=== PATIENT | male | born 1945 | race African-American/Black ===

== ENCOUNTER 2016-11-27 08:30 | Inpatient (IN) | payer MEDICARE, MEDICAID ==
[~2016-11-27] VITALS: Ht 180.3 cm; Wt 88.5 kg
[2016-11-27] VITALS (20 sets, daily range): BP systolic 89–177; BP diastolic 49–89
[~2016-11-27 08:30] MED LIST: AMIODARONE HCL400 M1 ORAL; BISACODYL5 MG RECTAL; COLACE100 MG ORAL; COUMADIN5 MG ORAL; Clindamycin 900mg 50 ML IVPB ONE; DILANTIN100 MG ORAL; FERROUS SULFAT325 MG ORAL; FLEET ENEMA133 ML RECTAL; FLOMAX0.4 MG ORAL; FOLIC ACID1 MG ORAL; LIPITOR40 MG ORAL; LISINOPRIL20 MG ORAL; METOPROLOL TAR100 M1 ORAL; MILK OF MA2400 MG/10 ORAL; MIRTAZAPINE15 MG ORAL; MULTI VITAMIN1 EACH ORAL; OS-CAL1250 MG GT; POTASSIUM CHLO20 ME1 ORAL; SENNA8.6 M3 PO; THIAMINE HCL100 MG ORAL; TYLENOL325 MG ORAL; TYLENOL650 MG/20. ORAL; VITAMIN B12-FO1 EAC1 PO; Vancomycin 1.5 GM in D5W 325 ML IVPB STA
--- NOTE | 2016-11-27 08:32 | Emergency Room Report ---
History of Present Illness General Chief Complaint: Abnormal Labs Source: EMS Present Illness HPI 70YOM BIBEMS from SNF for "abdominal distention" and "rule out SBO" and "High WBCs". No other info from EMS Patient aphasic No other family members bedside Allergies: Coded Allergies: PENICILLINS (Verified Allergy, Unknown, 03/08/15) Uncoded Allergies: PCN (Allergy, Unknown, 03/08/15) Patient History Limited by: medical condition Past Medical History: see triage record, old chart reviewed, AFib, other - Multiple med problems too numerous to list here Past Surgical History: unable to obtain Pertinent Family History: unable to obtain Social History: Denies: alcohol use, drug use, smoking Immunizations: UTD Reviewed Nursing Documentation: PMH: Agreed, PSxH: Agreed Nursing Documentation-PMH Past Medical History: No History, Except For Hx Cardiac Problems: Yes - A FIB Hx Hypertension: Yes Hx Pacemaker: No - ANEMIA History Of Psychiatric Problem: Yes - DEPRESSION Hx Cerebrovascular Accident: Yes Hx Seizures: Yes Review of Systems All Other Systems: limited - Unable to provide, aphasic Physical Exam Vital Signs Date Time Temp Pulse Resp B/P Pulse Ox O2 Delivery O2 Flow Rate FiO2 11/27/16 08:20 102.9 120 92 Room Air Sp02 EP Interpretation: reviewed, abnormal General Appearance: normal inspection, well appearing, no apparent distress, alert, non-toxic Head: normocephalic, atraumatic Eyes: bilateral eye EOMI, bilateral eye PERRL ENT: normal ENT inspection, hearing grossly normal, normal pharynx, no angioedema Neck: normal inspection, full range of motion, supple, no bony tend Respiratory: normal inspection, lungs clear, normal breath sounds, no respiratory distress, no retraction, no wheezing Cardiovascular #1: regular rate, rhythm, no edema Gastrointestinal: normal inspection, normal bowel sounds, no guarding, no hernia, other - Distended, patient with voluntaru guarding Genitourinary: no CVA tenderness Musculoskeletal: normal inspection, back normal, normal range of motion, Alfred' s Sign negative Neurologic: normal inspection, alert, responsive, block breaker operator III-XII nml as tested, motor strength/tone normal, speech normal Psychiatric: normal inspection, judgement/insight normal, mood/affect normal Skin: normal inspection, normal color, no rash Procedures Critical Care Time Critical Care Time CC time 40 minutes 70YOM sent for "high white count" and "abd distention" VS febrile, tachcardic Abd distended DDx includes sepsis, SBO CC time includes review of multiple pages from SNF, labs, ordering of labs, ABX , placing NG tube, CTAP Dw possible surgery consult, admitting hospitalist Medical Decision Making Medicare Attestation I Margie Farah MD hereby attest that the medical record entry for date of service, 05/02/16 accurately reflects signatures/notations that I made in my capacity as MD when I treated/diagnosed the above listed Medicare beneficiary. I attest that this information is true, accurate and complete to the best of my knowledge. I understand that any falsification, omission, or concealment of material fact may subject me to administrative, civil, or criminal liability. This patient warrants hospital admission for extreme of age and has a condition that cannot be treated as outpatient. Diagnostic Impression: Primary Impression: Sepsis Qualified Codes: A41.9 - Sepsis, unspecified organism Additional Impressions: Abdominal distention UTI (urinary tract infection) Qualified Codes: N30.01 - Acute cystitis with hematuria GRETEL (acute kidney injury) ER Course Sepsis - VS with tachycardia, fever 103 - Abd likely source - NG tube placed with large amount of gastric contents removed - Labs: Leuks 18K with shift. UA grossly infected. GRETEL - CXR: no pna. - CTAP: NG Tube verifid. Enteritis vs ileus. ?SBO - Dr Avelar consulted for general surgery, saw patient Endorsed to Dr Vance for tele admit at 1132am EKG Diagnostic Results Rate: tachycardiac Rhythm: NSR ST Segments: no acute changes ASA given to the pt in ED: No Rhythm Strip Diag. Results EP Interpretation: yes Rate: 118 Rhythm: NSR, no PVC's, no ectopy Last Vital Signs Date Time Temp Pulse Resp B/P Pulse Ox O2 Delivery O2 Flow Rate FiO2 11/27/16 08:20 102.9 120 92 Room Air Status: improved Disposition: ADMITTED INPATIENT Condition: Critical MARGIE FARAH M.D. Nov 27, 2016 08:32
[2016-11-27] MEDS ORDERED: ARTIFICIAL TEAR15 ML BOTH EYES (08:55)
[2016-11-27] MEDS ORDERED: ALBUTEROL2.5 MG/3 M INH (08:55)
[2016-11-27] MEDS ORDERED: DILANTIN100 MG ORAL (08:55)
[2016-11-27] MEDS ORDERED: NITROGLYCERIN0.4 MG SL (08:55)
[2016-11-27] MEDS ORDERED: CATAPRES0.1 MG ORAL (08:55)
[2016-11-27] MEDS ORDERED: Lidocaine HCl 2% Jelly 5ml Tube TOPIC ONE ×3 (08:55→10:15)
[2016-11-27] MEDS ORDERED: GUAIFENESIN-CO118 M1 ORAL (08:55)
[2016-11-27] MEDS ORDERED: OYSTER SHELL C500 MG PO (08:55)
[2016-11-27] MEDS ORDERED: PROSOURCE275 GM PO (08:55)
[2016-11-27] MEDS ORDERED: LOPERAMIDE1 MG/5 ML ORAL (08:55)
[2016-11-27] MEDS ORDERED: Acetaminophen 650 MG SUPP RECTAL ONE ×2 (09:10→09:30)
[2016-11-27 09:20] LABS: BASOPHILS % (AUTO) 0.3 % (0.0-2.0); MEAN CORPUSCULAR HGB CONC 32.2 G/DL (32.0-36.0); MEAN CORPUSCULAR VOLUME 99 FL (80-99); MEAN PLATELET VOLUME 7.2 FL (6.5-10.1); MONOCYTES % (AUTO) 9.3 % (1.0-10.0); NEUTROPHILS % (AUTO) 81.4 % (45.0-75.0); PLATELET COUNT 236 K/UL (150-450); RED BLOOD COUNT 4.03 M/UL (4.70-6.10); RED CELL DISTRIBUTION WIDTH 12.1 % (11.6-14.8); WHITE BLOOD COUNT 17.9 K/UL (4.8-10.8)
[2016-11-27 09:26] LABS: INR 1.1 (0.9-1.1); PROTHROMBIN TIME 11.4 SEC (9.30-11.50)
[2016-11-27 09:54] LABS: ALANINE AMINOTRANSFERASE 16 U/L (3-41); ALBUMIN/GLOBULIN RATIO 1.2 (1.0-2.7); ANION GAP 18 (5-15); ASPARTATE AMINO TRANSFERASE 18 U/L (5-40); CALCIUM 8.7 mg/dL (8.6-10.2); CARBON DIOXIDE 23 mEQ/L (20-30); CHLORIDE 98 mEQ/L (98-107); CREATININE 2.6 mg/dL (0.7-1.2); HEMOLYSIS 5; LIPASE 10 U/L (< 60); POTASSIUM 4.3 mEQ/L (3.4-4.9); SODIUM 139 mEQ/L (135-145); TOTAL PROTEIN 7.2 g/dL (6.6-8.7); TROPONIN I < 0.30 ng/mL (<=0.30)
[2016-11-27] MEDS ORDERED: Lidocaine 4% Cream 15g TOPIC ONE (10:00)
--- NOTE | 2016-11-27 11:06 | Diagnostic Imaging Report ---
Indication: Abdominal pain Technique: Continuous helical transaxial imaging of the abdomen and pelvis was obtained from the lung bases to the pubic symphysis. No intravenous contrast was administered. Coronal 2-D reformats were also obtained. Total Dose length Product (DLP): [address] Dose Index Volume (CTDIvol): 19 mGy Comparison: none Findings: Coronary and aortic calcifications are present. Trace basilar effusions are noted. There is an NG tube present. This appears to be in good position. There is a prominent retrocrural node measuring 3 x 2 x 4.3 cm. This is not evaluated well on the current study obtained without IV contrast. Gallstones are present. There is a 4 mm nonobstructive stone in the right kidney. There is no hydronephrosis. Adrenal gland prominence is noted bilaterally. Normal appendix demonstrated. Mildly distended bowel demonstrated abdomen without obvious transition. Please correlate clinically. Moderate stool retention in the colon also noted. Urinary bladder is unremarkable. 1 cm hypodensity noted in the inferior right lobe of the liver. Impression: Distended small bowel. Suspect enteritis or ileus. Bowel obstruction not entirely excluded. Please correlate clinically. Apparent pleural adenopathy. Inflammatory versus neoplastic. Nonobstructive stone right kidney Gallstone Trace basilar pleural effusions NG tube in good position Right lobe liver hypodensity nonspecific. Moderate stool Normal appendix Atherosclerotic vascular disease The CT scanner at [facility] is accredited by the [employer] and the scans are performed using dose optimization techniques as appropriate to a performed exam including Automatic Exposure control.
[2016-11-27 11:29] LABS: APPEARANCE,URINE CLEAR; KETONES,URINE 2+ (NEGATIVE); LEUKOCYTE ESTERASE ,URINE 2+ (NEGATIVE); NITRITE,URINE POSITIVE (NEGATIVE); PH,URINE 5 (4.5-8.0); PROTEIN,URINE 2+ (NEGATIVE); UROBILINOGEN,URINE 8 MG/DL (0.0-1.0)
[2016-11-27 11:30] LABS: BACTERIA,URINE FEW /HPF; SQUAMOUS EPITHELIAL CELL,UR FEW /LPF (NONE/OCC)
[2016-11-27 11:31] LABS: ICTOTEST POS
[2016-11-27 11:45] LABS: REFLEX LACTIC ACID YES OR NO YES
--- NOTE | 2016-11-27 12:04 | Pre-Procedure Note/Attestation ---
Pre-Procedure Note/Attestation Complete Prior to Procedure Planned Procedure: not applicable Procedure Narrative: exploratory Laparotomy Indications for Procedure Pre-Operative Diagnosis: Acute Abdomen Attestation I attest that I discussed the nature of the procedure; its benefits; risks and complications; and alternatives (and the risks and benefits of such alternatives ), prior to the procedure, with the patient (or the patient's legal dental detail representative). I attest that, if there was a reasonable possibility of needing a blood transfusion, the patient (or the patient's legal dental detail representative) was given the [facility] standardized written summary, pursuant to the Zachary Perez Blood Safety Act ([place] Health and Safety Code # 1645, as amended). I attest that I re-evaluated the patient just prior to the surgery and that there has been no change in the patient's H&P, except as documented below: WILMA BANUELOS Nov 27, 2016 12:04
[2016-11-27] MEDS ORDERED: Bacitracin 50000 Units Vial ONE (12:49)
[2016-11-27] MEDS ORDERED: LR 1000ml ONE (13:00)
[2016-11-27] MEDS ORDERED: Propofol 10mg/ml 20ml IV ONE (13:00)
[2016-11-27] MEDS ORDERED: Phenylephrine 10mg/ml Vial ONE (13:00)
[2016-11-27] MEDS ORDERED: Midazolam 2mg/2ml Inj ONE (13:00)
[2016-11-27] MEDS ORDERED: Morphine Sulfate 10mg/ml Inj ONE (13:00)
[2016-11-27] MEDS ORDERED: Zemuron 50mg/5ml Inj IV ONE (13:00)
[2016-11-27] MEDS ORDERED: fentaNYL 100 mcg/2 mL IV ONE (13:00)
--- NOTE | 2016-11-27 13:32 | Consultation ---
DATE OF CONSULTATION: 11/27/2016 PREOPERATIVE CONSULTATION REASON FOR CONSULTATION: Abdominal distention and pain. REQUESTING PHYSICIAN: ER physician. HISTORY OF PRESENT ILLNESS: This is a 70-year-old male, who was brought to the emergency room [facility] and pain. There is absolutely no history available and the family is not available. From the records, the patient has only one sister, which was called and there was no response. The patient is nonresponsive, does not answer. He only response to pain and appeared that he is septic shock. It is not clear how long the patient has had this problem, but records from the [facility] shows that 11/24/2016 the patient had been in the dining room, sitting up in the wheelchair, and eating, apparently has been having conversation with the sister. It is not clear when the fever started, but in the emergency room, the patient had temperature of 104. The records showed that the patient has had been having some dry cough. PAST MEDICAL HISTORY: Apparently, he is allergic to penicillin. He has a history of COPD, coronary artery disease, CVA, dementia, seizure disorder, and hypertension. PAST SURGICAL HISTORY: None. MEDICATIONS: At the [facility], he has been on multiple medications, which include albuterol, handheld nebulizer, and amiodarone for atrial fibrillation. Atorvastatin, stool softener, and Dulcolax. Clonidine and ferrous sulfate for anemia. Folic acid and B12. Lisinopril, loperamide, Remeron, nitroglycerin, Dilantin, tamsulosin, and Coumadin, but INR is 1.1. SOCIAL HISTORY: The [facility] apparently [facility] and the record shows that he only has a sister. PHYSICAL EXAMINATION: GENERAL: The patient appeared to be a well-developed, well-nourished, 70-year-old male, lying on the gurney in the emergency room. Response only to the pain. He does not follow the orders. He cannot talk. He has a flexion contraction of the leg. VITAL SIGNS: Blood pressure is low and the heart rate is 120 and O2 saturation is 95%. His temperature has been up to 104 degrees. HEENT: Head is normocephalic and atraumatic. Eyes are closed. Mouth is clear. NECK: There is no palpable thyromegaly or adenopathy. CHEST: Clear to auscultation and percussion. HEART: Tachycardiac. S1 and S2 are within normal limits. ABDOMEN: Distended with severe tenderness all over with rebound tenderness and guarding. Bowel sounds are absent. GENITAL: Free of hernia. EXTREMITIES: He has flexion contraction of the left leg. LABORATORY AND DIAGNOSTIC DATA: CBC had shown WBC of 17,900 with left shift. Chemistry had shown BUN of 56 and creatinine of 2.6. Lactic acid of 3. PT is 11.4 and PTT 36. CAT scan of the abdomen had shown distended small bowel without signs of obstruction. I had a long discussion with the radiologist and there is no real radiologic signs for acute abdomen, but the radiologist felt that the patient might have ischemic bowel, considering the physical examination. ASSESSMENT: Rule out acute abdomen. PLAN: The patient requires emergency exploratory laparotomy. He is unable to respond. He cannot sign the consent. The only with the sister, I have been called, but there was no response. At this time, the patient is septic. His temperature is 103 degrees. Blood pressure both slightly low. He is tachycardia and he is unresponsive. Abdomen had severe tenderness all over with rebound tenderness and guarding. The abdomen showed signs of peritonitis, so although the CAT scan is nonspecific, but I feel that the physical examination criteria for acute abdomen and considering the sepsis, the only way to make sure is to performed exploratory laparotomy. Gracie Avelar M.D. DR: LOVE JOB#: [id number] CC:
[2016-11-27] MEDS ORDERED: NS Irrig 1000ml IRRIG ONE (13:38)
--- NOTE | 2016-11-27 14:21 | Anethesia Preoperative Eval ---
Anesthesia Pre-op PMH/ROS General Date of Evaluation: Nov 27, 2016 Time of Evaluation: 13:05 Anesthesiologist: Vero ASA Score: ASA 3 Mallampati Score Class I : Soft palate, uvula, fauces, pillars visible Class II: Soft palate, uvula, fauces visible Class III: Soft palate, base of uvula visible Class IV: Only hard plate visible Mallampati Classification: Class III Surgeon: Rosio Diagnosis: Sepsis. Ishcemic bowel Surgical Procedure: Ex laparotomy pos. bowel resection Anesthesia History: none Family History: no anesthesia problems Allergies: Coded Allergies: PENICILLINS (Verified Allergy, Unknown, 03/08/15) Uncoded Allergies: PCN (Allergy, Unknown, 03/08/15) Past Medical History Cardiovascular: Reports: CAD - CABG ? sternotomy scar, HTN, arrhythmia - h/o afib, Denies: LA, other, valve dz Pulmonary: Reports: other - h/o respiratory failure, Denies: COPD, ALEJO, asthma Gastrointestinal/Genitourinary: Reports: CRI, GERD Neurologic/Psychiatric: Reports: CVA, dementia, Denies: TIA, depression/anxiety, other Endocrine: Reports: DM, Denies: hypothyroidism, other, steroids HEENT: Denies: [place] (L), [place] (R), cataract (L), cataract (R), glaucoma, other Hematology/Immune: Reports: anemia, bleeding disorder - on coumadin, Denies: DVT, other Musculoskeletal/Integumentary: Reports: other - contracted, Denies: DDD, DJD, OA, RA, edema PMH Narrative: as above, admitted for abdominal pain and distention PSxH Narrative: sternotomy Anesthesia Pre-op Phys. Exam Physician Exam Last Vital Signs Date Time Temp Pulse Resp B/P Pulse Ox O2 Delivery O2 Flow Rate FiO2 11/27/16 12:51 118 28 113/70 98 Room Air 11/27/16 11:57 100.0 Constitutional: other - nonverbal, reacts on abdominal palpation Neurologic: other - unable to obtaine Cardiovascular: RRR Respiratory: CTA Gastrointestinal: other - distended, tender Airway Exam Mallampati Score: Class III MO: limited Neck: stiff ROM: limited Teeth: missing Dentures: no lower, no upper Anesthesia Pre-op A/P Labs Hematology Test 11/27/16 08:40 White Blood Count 17.9 K/UL (4.8-10.8) H Red Blood Count 4.03 M/UL (4.70-6.10) L Hemoglobin 12.9 G/DL (14.2-18.0) L Hematocrit 40.1 % (42.0-52.0) L Mean Corpuscular Volume 99 FL (80-99) Mean Corpuscular Hemoglobin 32.0 PG (27.0-31.0) H Mean Corpuscular Hemoglobin Concent 32.2 G/DL (32.0-36.0) Red Cell Distribution Width 12.1 % (11.6-14.8) Platelet Count 236 K/UL (150-450) Mean Platelet Volume 7.2 FL (6.5-10.1) Neutrophils (%) (Auto) 81.4 % (45.0-75.0) H Lymphocytes (%) (Auto) 9.0 % (20.0-45.0) L Monocytes (%) (Auto) 9.3 % (1.0-10.0) Eosinophils (%) (Auto) 0.0 % (0.0-3.0) Basophils (%) (Auto) 0.3 % (0.0-2.0) Coagulation Test 11/27/16 08:40 Prothrombin Time 11.4 SEC (9.30-11.50) Prothromb Time International Ratio 1.1 (0.9-1.1) Activated Partial Thromboplast Time 36 SEC (23-33) H Chemistry Test 11/27/16 08:40 11/27/16 10:39 11/27/16 11:50 Sodium Level 139 mEQ/L (135-145) Potassium Level 4.3 mEQ/L (3.4-4.9) Chloride Level 98 mEQ/L (98-107) Carbon Dioxide Level 23 mEQ/L (20-30) Anion Gap 18 (5-15) H Blood Urea Nitrogen 56 mg/dL (7-23) H Creatinine 2.6 mg/dL (0.7-1.2) H Estimat Glomerular Filtration Rate mL/min (>60) Glucose Level 183 mg/dL (74-106) H Calcium Level 8.7 mg/dL (8.6-10.2) Total Bilirubin 0.7 mg/dL (0.0-1.2) Aspartate Amino Transf (AST/SGOT) 18 U/L (5-40) Alanine Aminotransferase (ALT/SGPT) 16 U/L (3-41) Alkaline Phosphatase 124 U/L (40-129) Troponin I < 0.30 ng/mL (<=0.30) Total Protein 7.2 g/dL (6.6-8.7) Albumin 4.0 g/dL (3.5-5.2) Globulin 3.2 g/dL Albumin/Globulin Ratio 1.2 (1.0-2.7) Lipase 10 U/L (< 60) Lactic Acid Level 3.00 mmol/L (0.66-2.22) H 2.80 mmol/L (0.66-2.22) H Risk Assessment & Plan Assessment: ASA 3 E Plan: GA with ETT. hydration, ICU care postoperatively with respiratory support Status Change Before Surgery: No Pre-Antibiotics Drug: none ERVIN MEDELLIN M.D. Nov 27, 2016 14:21
--- NOTE | 2016-11-27 15:24 | Brief Operative Note ---
Immediate Post Operative Note Operative Note Pre-op Diagnosis: Acute Abdomen Post-op Diagnosis: Ischemia of sigmoid colon Findings: consistent w/pre-op dx studies Surgeon: MD Mely Tool And Gauge Inspector: none Anesthesiologist: Dr. Pham Anesthesia: general Specimen: yes Complications: none Condition: stable Estimated Blood Loss: minimal Drains: SHWETA Implant(s) used?: No WILMA BANUELOS Nov 27, 2016 15:24
[2016-11-27] MEDS ORDERED: Acetaminophen 650 MG SUPP RECTAL PRN (15:30)
--- NOTE | 2016-11-27 15:45 | Immediate Post-Op Evaluation ---
Immediate Post-Op Evalulation Immediate Post-Op Evalulation Procedure: Ex. laparotomy, sigmoidectomy, colostomy placement Date of Evaluation: Nov 27, 2016 Time of Evaluation: 15:44 IV Fluids: 2000 cryst. Hespan 500 Blood Products: none Estimated Blood Loss: 100 Urinary Output: 150 Blood Pressure Systolic: 118 Blood Pressure Diastolic: 56 Pulse Rate: 106 Respiratory Rate: 10 O2 Sat by Pulse Oximetry: 99 Temperature (Fahrenheit): 97.6 Pain Score (1-10): 0 Nausea: No Vomiting: No Complications none Patient Status: no response, ventilated, none Hydration Status: adequate ERVIN MEDELLIN M.D. Nov 27, 2016 15:45
[2016-11-27] MEDS ORDERED: LR 1000ml 1,000 ML IVLG SCH (16:05)
[2016-11-27] MEDS ORDERED: Hydromorphone 0.5mg/0.5ml inj IVP PRN (16:15)
[2016-11-27] MEDS ORDERED: LORazepam Inj 2mg/ml 1ml IV PRN (16:15)
[2016-11-27] MEDS ORDERED: Meperidine 25mg/0.5ml Inj (FOR RIGORS ONLY) IV PRN (16:15)
[2016-11-27] MEDS ORDERED: DiphenhydrAMINE 50mg/ml Inj IVP PRN (16:15)
--- NOTE | 2016-11-27 16:46 | Operative Note - Dictated ---
DATE OF OPERATION: 11/27/2016 PREOPERATIVE DIAGNOSIS: Acute abdomen. POSTOPERATIVE DIAGNOSIS: Ischemia of the sigmoid colon. OPERATION: Exploratory laparotomy and resection of the sigmoid colon with end colostomy. COMPLICATIONS: None. SURGEON: Gracie Avelar M.D. MACHINE FORMER: None. ANESTHESIA: General with endotracheal tube. ANESTHESIOLOGIST: Wilber Pham M.D. INDICATION: This is a 70-year-old, male, a resident of a correction facility, was brought to the emergency room for abdominal pain and distention. We did not have any history from the patient and the patient was nonverbal. The relatives were not available and the only information was from the transfer papers from the SNF. Physical examination showed severely distended abdomen with rebound tenderness and guarding all over. The patient only responded to the pain. The CBC was 7900 with a left shift. BUN and creatinine was elevated. A CAT scan of the abdomen was nonspecific. I had a long discussion with the radiologist, who felt that it might be due to the ischemia of the bowel, which has not caused gangrene and perforation yet. The patient was in septic shock. The blood pressure was low. Heart rate was 120. Lactic acid of 3. Temperature 103 and 104. As the patient was septic and there was no other source for the sepsis, although the CAT scan was nonspecific, the decision was made for exploratory laparotomy. DESCRIPTION OF PROCEDURE: The patient was placed supine on the operating table and after general anesthesia with endotracheal tube, the abdomen was properly prepped and draped. A midline incision was given from above the umbilicus to below the umbilicus, and was carried sharply through subcutaneous tissue, fascia, and peritoneum. The intraperitoneal cavity was entered. The patient had dilated small bowel, but more than that was dilatation of the colon, especially the sigmoid colon. There was a small amount of turbid fluid at the pelvis, which seemed to be infected. It was suctioned out and culture was obtained. The incision was extended and standard exploration was performed. The stomach was within normal limits and the liver was normal. Gallbladder had stones. The small bowel was run from the Treitz ligament to the cecum, which was normal. The colon was examined. It was very distended, especially at the transverse colon and sigmoid colon. In the distal sigmoid colon and the proximal rectum, the patient had the patches of ischemia. It was not perforated yet and there was no gangrene, but apparently it seemed it is necrosis of the mucosa, which could represent patches of the dark color from inside the abdomen. The proximal part of the sigmoid colon was normal, and the distal part of the rectum were normal, but the proximal part had patches of the ischemia. As the patient was septic, the decision was made for resection of the area. The ischemic area was ligated and transected with the help of the CARMITA stapler. The mesocolon was resected with multiple ligations of 0 silk and the specimen was removed. The bleeding points were controlled. The intra-abdominal cavity was thoroughly irrigated with antibiotic solution, and then the location of the colostomy was selected at the left lower quadrant, and the incision was made. We made sure that the opening was size of 2 fingers. The end of the sigmoid colon was passed through this opening and it was secured to the fascia with multiple interrupted sutures of 3-0 Vicryl. A Trell drain was placed in the pelvis and was brought out from a separate stab wound. The bowels were returned, and the midline incision was approximated with running suture of 0 Vicryl for the peritoneum and posterior fascia and the running suture with #1 Prolene for the fascia. The skin was approximated with multiple skin martin. After this, the colostomy was matured with multiple interrupted sutures of 3-0 Vicryl. The patient tolerated the procedure and was transferred to ICU in stable condition, but he was kept intubated. The sponge and needle count correct. Estimated blood loss about 20 mL. Condition of the patient at the end of the procedure guarded. It should be noted that the urine output was low during the procedure, but the blood pressure stayed at the acceptable level. Gracie Avelar M.D. DR: NBA JOB#: [id number] CC:
[2016-11-27 16:59] LABS: ABG PCO2 41.1 mmHg (35.0-45.0)
[2016-11-27 17:00] LABS: ABG ALLEN TEST POSITIVE; ABG BASE EXCESS -3.7
[2016-11-27] MEDS ORDERED: D5 1/2NS w/KCl 20mEq 1,000 ML IV SCH (17:00)
[2016-11-27] MEDS ORDERED: Morphine Sulfate 4mg/ml Inj IVP PRN (17:00)
[2016-11-27] MEDS ORDERED: HYDROmorphone 1mg/ml Carpuject IM SCH (17:00)
[2016-11-27] MEDS ORDERED: Miralax 17gm pkt ORAL PRN (17:00)
[2016-11-27] MEDS ORDERED: HYDROmorphone 1mg/ml Carpuject IVP PRN (18:30)
[2016-11-27] MEDS: D5 1/2NS w/KCl 20mEq 1,000 ML IV SCH (18:30)
[2016-11-27] MEDS ORDERED: Amikacin 750 MG in NS 110 ML IV ONE (20:00)
[2016-11-27] MEDS: Pantoprazole Inj IVP SCH (20:23)
[2016-11-27] MEDS ORDERED: Heparin 5000 units/ml inj SUBQ SCH (21:00)
[2016-11-27] MEDS ORDERED: DuoNeb 0.5-3(2.5)mg/3ml neb HHN PRN (21:00)
[2016-11-27] MEDS: Ertapenem 1 GM in NS 55 ML IV SCH (21:10)
[2016-11-27 21:46] LABS: BASOPHILS % (AUTO) 0.3 % (0.0-2.0); LYMPHOCYTES % (AUTO) 12.4 % (20.0-45.0); MEAN CORPUSCULAR HEMOGLOBIN 32.6 PG (27.0-31.0); MEAN CORPUSCULAR HGB CONC 33.1 G/DL (32.0-36.0); MEAN CORPUSCULAR VOLUME 98 FL (80-99); MONOCYTES % (AUTO) 6.2 % (1.0-10.0); PLATELET COUNT 193 K/UL (150-450); RED CELL DISTRIBUTION WIDTH 12.1 % (11.6-14.8); WHITE BLOOD COUNT 11.7 K/UL (4.8-10.8)
[2016-11-27 21:59] LABS: ANION GAP 16 (5-15); CALCIUM 7.6 mg/dL (8.6-10.2); CARBON DIOXIDE 21 mEQ/L (20-30); CHLORIDE 102 mEQ/L (98-107); CREATININE 2.1 mg/dL (0.7-1.2); HEMOLYSIS 2; POTASSIUM 4.4 mEQ/L (3.4-4.9); SODIUM 139 mEQ/L (135-145)
[2016-11-27 22:02] LABS: REFLEX LACTIC ACID YES OR NO YES
[2016-11-27] MEDS: Metoclopramide 10mg/2ml Inj IVP SCH (22:18)
[2016-11-28] VITALS (24 sets, daily range): BP systolic 71–150; BP diastolic 37–113
[2016-11-28] MEDS: D5 1/2NS w/KCl 20mEq 1,000 ML IV SCH (05:01)
[2016-11-28 05:25] LABS: BASOPHILS % (AUTO) 0.5 % (0.0-2.0); EOSINOPHILS % (AUTO) 0.1 % (0.0-3.0); MEAN CORPUSCULAR HEMOGLOBIN 33.4 PG (27.0-31.0); MEAN CORPUSCULAR HGB CONC 33.3 G/DL (32.0-36.0); MEAN CORPUSCULAR VOLUME 100 FL (80-99); MEAN PLATELET VOLUME 7.7 FL (6.5-10.1); MONOCYTES % (AUTO) 7.7 % (1.0-10.0); NEUTROPHILS % (AUTO) 74.7 % (45.0-75.0); PLATELET COUNT 201 K/UL (150-450); RED BLOOD COUNT 3.43 M/UL (4.70-6.10); RED CELL DISTRIBUTION WIDTH 12.4 % (11.6-14.8); WHITE BLOOD COUNT 10.1 K/UL (4.8-10.8)
[2016-11-28 06:10] LABS: ALANINE AMINOTRANSFERASE 12 U/L (3-41); ALBUMIN/GLOBULIN RATIO 0.7 (1.0-2.7); ANION GAP 18 (5-15); ASPARTATE AMINO TRANSFERASE 19 U/L (5-40); CALCIUM 7.7 mg/dL (8.6-10.2); CARBON DIOXIDE 20 mEQ/L (20-30); CHLORIDE 101 mEQ/L (98-107); CREATININE 2.6 mg/dL (0.7-1.2); HEMOLYSIS 3; SODIUM 139 mEQ/L (135-145); TOTAL PROTEIN 5.8 g/dL (6.6-8.7)
[2016-11-28] MEDS: Metoclopramide 10mg/2ml Inj IVP SCH ×3 (06:22→22:27)
[2016-11-28 06:42] LABS: BILIRUBIN,DIRECT 0.1 mg/dL (0.1-0.3)
[2016-11-28] MEDS: Enoxaparin 40mg Inj SUBQ SCH (08:36)
--- NOTE | 2016-11-28 09:13 | Diagnostic Imaging Report ---
Indications: Endotracheal tube repositioning Technique: Portable AP chest at 1741 Findings: Comparison: 1604 Endotracheal tube has been withdrawn, tip now 5-6 cm above karolina. Nasogastric tube has been advanced, tip in proximal port now in the region of the stomach. No other change. IMPRESSION: Repositioning of endotracheal and nasogastric tubes, both adequately positioned This correlates with [facility] preliminary report.
--- NOTE | 2016-11-28 09:31 | Diagnostic Imaging Report ---
Indications: Endotracheal tube repositioning, nasogastric tube placement Technique: Portable AP chest at 1604 Findings: Comparison: 0935 Endotracheal tube has been withdrawn, tip now approximately 1 to cm above karolina. Nasogastric tube has been placed, tip in region of proximal aspect of stomach, proximal side-port probably within distal thoracic esophagus. Pulmonary inflation has decreased. Linear densities persist in both lung bases. Cardiac mediastinal silhouette stable. Left costophrenic angle blunting persist; right remain sharp. IMPRESSION: Withdrawal of endotracheal tube, better positioned, recommend additional 1-2 cm withdrawal. Placement of nasogastric tube, stomach proximal in position, recommend advancement by 10 cm Persistent pulmonary bibasal subsegmental atelectasis, questionable small left pleural effusion This correlates with [facility] preliminary report.
[2016-11-28 09:39] LABS: ABG ALLEN TEST POSITIVE; ABG BASE EXCESS -4.5; ABG PCO2 48.5 mmHg (35.0-45.0)
[2016-11-28 10:49] LABS: REFLEX LACTIC ACID YES OR NO YES
--- NOTE | 2016-11-28 10:51 | History and Physical ---
History of Present Illness General Date patient seen: Nov 28, 2016 Reason for Hospitalization: Abnormal Labs Present Illness HPI 70 year old male with hx of CVA, COPD, Left sided weakness, DM, Seizures, cardiomyopathy, anemia, HTN, longterm resident brought in by paramedics with CC of abdominal distension. Pt underwent expl laparotomy, showing ischemia of the colon, had resection of sigmoid with colostomy. Admitted to ICU for post op care. Allergies: Coded Allergies: PENICILLINS (Verified Allergy, Unknown, 03/08/15) Medication History Scheduled Acetaminophen (Acetaminophen), 650 MG ORAL Q4HR, (Reported) Amiodarone Hcl* (Amiodarone Hcl*), 200 MG ORAL DAILY, (Reported) Atorvastatin Calcium* (Lipitor*), 40 MG ORAL BEDTIME, (Reported) Bisacodyl* (Dulcolax*), 10 MG RECTAL ONCE, (Reported) Calcium Carbonate (Oyster Shell Calcium), 500 MG PO DAILY, (Reported) Clonidine Hcl* (Catapres*), 0.1 MG ORAL EVERY 6 HOURS, (Reported) Docusate Sodium* (Colace*), 100 MG ORAL TWICE A DAY, (Reported) Ferrous Sulfate* (Ferrous Sulfate*), 325 MG ORAL BID, (Reported) Folic Acid* (Folic Acid*), 1 MG ORAL DAILY, (Reported) Lisinopril (Lisinopril*), 20 MG ORAL DAILY, (Reported) Magnesium Hydroxide* (Milk Of Magnesia*), 30 ML ORAL DAILY, (Reported) Metoprolol Tartrate* (Metoprolol Tartrate*), 100 MG ORAL EVERY 12 HOURS, ( Reported) Mirtazapine* (Remeron*), 15 MG ORAL BEDTIME, (Reported) Multivitamin (Multi Vitamin Daily), Unknown Dose ORAL DAILY, (Reported) Na Phos,M-B/Na Phos,Di-Ba* (Fleet Enema*), 118 ML RECTAL DAILY, (Reported) Phenytoin Sodium Extended* (Dilantin*), 300 MG ORAL DAILY, (Reported) Phenytoin Sodium Extended* (Dilantin*), 200 MG ORAL AFTERNOON, (Reported) Potassium Chloride* (K-Dur*), 20 MEQ ORAL DAILY, (Reported) Tamsulosin HCl (Flomax), 0.4 MG ORAL DAILY, (Reported) Thiamine Hcl (Vitamin B1*), 100 MG ORAL DAILY, (Reported) Warfarin Sod* (Coumadin*), 5 MG ORAL DAILY, (Reported) Scheduled PRN Acetaminophen (Tylenol), 650 MG ORAL Q4HR PRN for Mild Pain/Temp > 100.5, ( Reported) Albuterol Sulfate* (Albuterol Sulfate Hhn*), 3 ML INH Q4H PRN for Shortness of Breath, (Reported) Guaifenesin/Codeine Phos* (Robitussin Ac*), 1 TSP ORAL Q6H PRN for For Cough, ( Reported) Loperamide Hcl (Loperamide), 1 MG ORAL Q8HR PRN for Diarrhea, (Reported) Nitroglycerin (Nitroglycerin), 0.4 MG SL [id number] PRN for CHEST PAIN, (Reported ) Miscellaneous Medications Calcium Carbonate (Calcium Carbonate), 1,250 MG GT, (Reported) Cyanocobalamin/Folic Acid (Vitamin Y29-Hxbpa Acid Tablet), 1 EACH PO, (Reported) Dextran 70/Hypromellose (Artificial Tears Eye Drops*), 1 DROP BOTH EYES, ( Reported) Protein Supplement (Prosource), 275 GM PO, (Reported) Sennosides (Senna), 8.6 MG PO, (Reported) Patient History Healthcare decision maker N Resuscitation status Full Code Advanced Directive on File Past Medical/Surgical History Past Medical/Surgical History: (1) COPD (chronic obstructive pulmonary disease) (2) HTN (hypertension) (3) Cardiomyopathy Review of Systems All Other Systems: negative except mentioned in HPI Physical Exam General Appearance: WD/WN Lines, tubes and drains: peripheral HEENT: normocephalic, atraumatic Neck: non-tender, normal alignment Respiratory/Chest: chest wall non-tender, lungs clear Cardiovascular/Chest: normal peripheral pulses, regular rhythm Abdomen: normal bowel sounds, non tender Genitourinary/Rectal: normal genital exam, normal rectal exam Skin Exam: normal pigmentation 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 Last 24 Hour Vital Signs Date Time Temp Pulse Resp B/P Pulse Ox O2 Delivery O2 Flow Rate FiO2 11/28/16 10:26 107 19 50 11/28/16 10:20 50 11/28/16 10:00 102 16 139/69 100 Mechanical Ventilator 50 11/28/16 09:26 101 16 50 11/28/16 09:02 98.0 7/3/17 09:00 100 16 119/69 100 Mechanical Ventilator 50 7/3/17 08:00 50 7/3/17 08:00 108 7/3/17 08:00 99.0 101 16 140/59 100 Mechanical Ventilator 50 7/3/17 07:00 98 16 105/52 100 Mechanical Ventilator 50 7/3/17 06:48 104 16 50 7/3/17 06:00 97 16 106/52 100 Mechanical Ventilator 50 7/3/17 05:00 104 16 105/52 100 Mechanical Ventilator 50 7/3/17 04:46 105 16 50 7/3/17 04:00 105 7/3/17 04:00 98.0 104 16 124/55 100 Mechanical Ventilator 50 7/3/17 04:00 50 7/3/17 03:17 106 16 50 7/3/17 03:00 98 16 108/69 100 Mechanical Ventilator 50 7/3/17 02:00 97 16 110/62 100 Mechanical Ventilator 50 7/3/17 01:19 103 16 50 7/3/17 01:00 98 16 96/48 100 Mechanical Ventilator 50 7/3/17 00:00 50 7/3/17 00:00 98.4 103 16 108/70 100 Mechanical Ventilator 50 7/3/17 00:00 104 7/2/17 23:09 112 17 50 7/2/17 23:00 104 16 98/53 100 Mechanical Ventilator 50 7/2/17 22:00 105 15 106/66 100 Mechanical Ventilator 50 7/2/17 21:00 106 17 152/73 100 Mechanical Ventilator 50 7/2/17 20:56 110 20 50 7/2/17 20:00 98.8 110 18 120/68 100 Mechanical Ventilator 50 7/2/17 20:00 131/62 7/2/17 19:30 115 21 50 7/2/17 19:05 108 20 100/69 100 Mechanical Ventilator 50 7/2/17 18:00 118 20 100/58 100 Mechanical Ventilator 50 7/2/17 17:33 112 7/2/17 17:30 98.6 116 20 92/59 100 Mechanical Ventilator 50 7/2/17 17:20 118 20 97/69 100 Mechanical Ventilator 50 7/2/17 17:04 121 25 50 7/2/17 17:00 50 7/2/17 17:00 98.9 116 19 91/61 100 Mechanical Ventilator 50 11/27/16 16:45 114 19 101/76 100 Mechanical Ventilator 50 11/27/16 16:30 114 20 100/77 100 Mechanical Ventilator 50 11/27/16 16:15 111 20 100/77 100 Mechanical Ventilator 50.0 11/27/16 16:00 115 23 89/61 100 Mechanical Ventilator 50.0 11/27/16 15:50 117 24 114/89 100 Mechanical Ventilator 50.0 11/27/16 15:45 115 12 50 11/27/16 15:45 106 10 99 11/27/16 15:40 118 22 115/88 100 Mechanical Ventilator 50.0 11/27/16 15:35 99.8 112 20 118/56 100 Mechanical Ventilator 50.0 11/27/16 15:35 50 11/27/16 12:51 118 28 113/70 98 Room Air 11/27/16 11:57 100.0 118 18 100/49 95 Room Air Intake and Output 11/27/16 11/28/16 19:00 07:00 Intake Total 3175 ml 1200 ml Output Total 940 ml 870 ml Balance 2235 ml 330 ml Intake IV Total 2675 ml 1200 ml Other 500 ml Output Urine Total 440 ml 560 ml Gastric Drainage Total 200 ml 200 ml Drainage Total 200 ml 110 ml Estimated Blood Loss 100 ml # Bowel Movements 1 Laboratory Tests Test 11/27/16 11:03 11/27/16 11:50 11/27/16 16:50 11/27/16 21:10 Urine Color Vania Urine Appearance Clear Urine pH 5 (4.5-8.0) Urine Specific [place] 1.025 (1.005-1.035) Urine Protein 2+ (NEGATIVE) H Urine Glucose (UA) Negative (NEGATIVE) Urine Ketones 2+ (NEGATIVE) H Urine Occult Blood 1+ (NEGATIVE) H Urine Nitrite Positive (NEGATIVE) H Urine Bilirubin 2+ (NEGATIVE) H Urine Ictotest Pos Urine Urobilinogen 8 MG/DL (0.0-1.0) H Urine Leukocyte Esterase 2+ (NEGATIVE) H Urine RBC 2-4 /HPF (0 - 0) H Urine WBC 10-15 /HPF (0 - 0) H Urine Squamous Epithelial Cells Few /LPF (NONE/OCC) Urine Bacteria Few /HPF (NONE) Lactic Acid Level 2.80 mmol/L (0.66-2.22) H 2.10 mmol/L (0.66-2.22) Arterial Blood pH 7.342 (7.350-7.450) Arterial Blood Partial Pressure CO2 41.1 mmHg (35.0-45.0) Arterial Blood Partial Pressure O2 143.0 mmHg (75.0-100.0) H Arterial Blood HCO3 21.8 mmol/L (22.0-26.0) L Arterial Blood Oxygen Saturation 98.7 % (92.0-98.0) H Arterial Blood Base Excess -3.7 David Test Positive White Blood Count 11.7 K/UL (4.8-10.8) H Red Blood Count 3.60 M/UL (4.70-6.10) L Hemoglobin 11.7 G/DL (14.2-18.0) L Hematocrit 35.4 % (42.0-52.0) L Mean Corpuscular Volume 98 FL (80-99) Mean Corpuscular Hemoglobin 32.6 PG (27.0-31.0) H Mean Corpuscular Hemoglobin Concent 33.1 G/DL (32.0-36.0) Red Cell Distribution Width 12.1 % (11.6-14.8) Platelet Count 193 K/UL (150-450) Mean Platelet Volume 7.0 FL (6.5-10.1) Neutrophils (%) (Auto) 81.0 % (45.0-75.0) H Lymphocytes (%) (Auto) 12.4 % (20.0-45.0) L Monocytes (%) (Auto) 6.2 % (1.0-10.0) Eosinophils (%) (Auto) 0.0 % (0.0-3.0) Basophils (%) (Auto) 0.3 % (0.0-2.0) Sodium Level 139 mEQ/L (135-145) Potassium Level 4.4 mEQ/L (3.4-4.9) Chloride Level 102 mEQ/L (98-107) Carbon Dioxide Level 21 mEQ/L (20-30) Anion Gap 16 (5-15) H Blood Urea Nitrogen 54 mg/dL (7-23) H Creatinine 2.1 mg/dL (0.7-1.2) H Estimat Glomerular Filtration Rate mL/min (>60) Glucose Level 207 mg/dL (74-106) H Calcium Level 7.6 mg/dL (8.6-10.2) L Test 11/28/16 04:00 11/28/16 04:35 11/28/16 09:26 11/28/16 09:45 White Blood Count 10.1 K/UL (4.8-10.8) Red Blood Count 3.43 M/UL (4.70-6.10) L Hemoglobin 11.4 G/DL (14.2-18.0) L Hematocrit 34.4 % (42.0-52.0) L Mean Corpuscular Volume 100 FL (80-99) H Mean Corpuscular Hemoglobin 33.4 PG (27.0-31.0) H Mean Corpuscular Hemoglobin Concent 33.3 G/DL (32.0-36.0) Red Cell Distribution Width 12.4 % (11.6-14.8) Platelet Count 201 K/UL (150-450) Mean Platelet Volume 7.7 FL (6.5-10.1) Neutrophils (%) (Auto) 74.7 % (45.0-75.0) Lymphocytes (%) (Auto) 17.0 % (20.0-45.0) L Monocytes (%) (Auto) 7.7 % (1.0-10.0) Eosinophils (%) (Auto) 0.1 % (0.0-3.0) Basophils (%) (Auto) 0.5 % (0.0-2.0) Sodium Level 139 mEQ/L (135-145) Potassium Level 5.0 mEQ/L (3.4-4.9) H Chloride Level 101 mEQ/L (98-107) Carbon Dioxide Level 20 mEQ/L (20-30) Anion Gap 18 (5-15) H Blood Urea Nitrogen 59 mg/dL (7-23) H Creatinine 2.6 mg/dL (0.7-1.2) H Estimat Glomerular Filtration Rate mL/min (>60) Glucose Level 141 mg/dL (74-106) H Calcium Level 7.7 mg/dL (8.6-10.2) L Total Bilirubin 0.4 mg/dL (0.0-1.2) Direct Bilirubin 0.1 mg/dL (0.1-0.3) Aspartate Amino Transf (AST/SGOT) 19 U/L (5-40) Alanine Aminotransferase (ALT/SGPT) 12 U/L (3-41) Alkaline Phosphatase 110 U/L (40-129) Total Protein 5.8 g/dL (6.6-8.7) L Albumin 2.5 g/dL (3.5-5.2) L Globulin 3.3 g/dL Albumin/Globulin Ratio 0.7 (1.0-2.7) L Arterial Blood pH 7.281 (7.350-7.450) Arterial Blood Partial Pressure CO2 48.5 mmHg (35.0-45.0) H Arterial Blood Partial Pressure O2 100.8 mmHg (75.0-100.0) H Arterial Blood HCO3 22.3 mmol/L (22.0-26.0) Arterial Blood Oxygen Saturation 96.8 % (92.0-98.0) Arterial Blood Base Excess -4.5 David Test Positive Lactic Acid Level Pending Microbiology Date/Time Source Procedure Growth Status 11/27/16 11:03 Urine,Clean Catch Urine Culture - Preliminary NO GROWTH Resulted 11/27/16 13:43 Abdominal Fluid Gram Stain Pending Resulted 11/27/16 13:43 Abdominal Fluid Aerobic Culture - Preliminary NO GROWTH Resulted 11/27/16 13:43 Abdominal Fluid Anaerobic Culture - Preliminary Resulted Height (Feet): 5 Height (Inches): 11.00 Weight (Pounds): 175 Medications Current Medications Medications (Trade) Dose Ordered Sig/Ady Route PRN Reason Start Time Stop Time Status Last Admin Dose Admin Acetaminophen (Tylenol) 650 mg Q4H PRN ORAL fever 11/27/16 17:00 12/27/16 16:59 Acetaminophen (Tylenol) 650 mg Q4H PRN RECTAL Mild Pain (Pain Scale 1-3) 11/27/16 15:30 12/27/16 15:29 Albuterol/ Ipratropium 3 ml 3 ml EVERY 4 HOURS PRN HHN Shortness of Breath 11/27/16 21:00 12/02/16 20:59 Dextrose/ Electrolytes (D5 0.45%NS W/ KCl 20mEq) 1,000 ml @ 100 mls/hr Q10H IV 11/27/16 18:30 12/27/16 18:29 11/28/16 05:01 Enoxaparin Sodium (Lovenox) 40 mg DAILY SUBQ 11/28/16 09:00 12/28/16 08:59 11/28/16 08:36 Ertapenem 1 gm/ Sodium Chloride 55 ml @ 110 mls/hr Q24H IV 11/27/16 21:00 11/28/16 20:59 11/27/16 21:10 Hydromorphone HCl (Dilaudid) 2 mg EVERY 4 HOURS IVP 11/27/16 17:00 12/04/16 16:59 11/28/16 08:32 Hydromorphone HCl 1 mg 1 mg Q4H PRN IVP MILD-MOD PAIN 11/27/16 18:30 12/04/16 18:29 Lorazepam 2 mg 2 mg EVERY 2 HOURS PRN IV For Anxiety 11/27/16 17:00 12/04/16 16:59 Metoclopramide HCl (Reglan) 10 mg EVERY 8 HOURS IVP 11/27/16 22:00 12/27/16 21:59 11/28/16 06:22 Norepinephrine Bitartrate/ Dextrose (Levophed/D5W) 254 ml @ 0 mls/hr Q24H IV 11/27/16 20:00 12/27/16 19:59 Ondansetron HCl (Zofran) 4 mg Q6H PRN IVP Nausea & Vomiting 11/27/16 17:00 12/27/16 16:59 Pantoprazole (Protonix) 40 mg DAILY IVP 11/27/16 20:00 12/27/16 19:59 11/27/16 20:23 Polyethylene Glycol (Miralax) 17 gm DAILYPRN PRN ORAL Constipation 11/27/16 17:00 12/27/16 16:59 Vancomycin HCl/ Dextrose (Vancomycin/D5W) 275 ml @ 183.3 mls/ hr Q24H IVPB 11/28/16 15:00 12/03/16 14:59 Assessment/Plan Problem List: (1) Respiratory failure ICD Codes: J96.90 - Respiratory failure, unspecified, unspecified whether with hypoxia or hypercapnia SNOMED: 825724135 (2) Sepsis ICD Codes: A41.9 - Sepsis, unspecified organism SNOMED: 08962755 Qualifiers: Qualified Codes: A41.9 - Sepsis, unspecified organism (3) Cardiomyopathy ICD Codes: I42.9 - Cardiomyopathy, unspecified SNOMED: 08543604 (4) sigmoidectomy (5) Status post exploratory laparotomy ICD Codes: Z98.890 - Other specified postprocedural states SNOMED: 64825950, 38107558, 551580434 (6) COPD (chronic obstructive pulmonary disease) ICD Codes: J44.9 - Chronic obstructive pulmonary disease, unspecified SNOMED: 97879845 Assessment/Plan NPO IV fluids check cultures IV antibiotics dvt prophylaxis keep sedated vent management ID and Nephro evaluation BUCKY WOLF Nov 28, 2016 10:51
[2016-11-28] MEDS: D5 1/2NS 1,000 ML IV SCH ×2 (11:24→20:48)
--- NOTE | 2016-11-28 12:23 | Consultation ---
Consult Note Consult Note asked to eval for renal failure 70YOM BIBEMS from SNF for "abdominal distention" and "rule out SBO" and "High WBCs". No other info from EMS Patient aphasic Coded Allergies: PENICILLINS (Verified Allergy, Unknown, 03/08/15) Past Medical History: No History, Except For Hx Cardiac Problems: Yes - A FIB Hx Hypertension: Yes Hx Pacemaker: No - ANEMIA History Of Psychiatric Problem: Yes - DEPRESSION Hx Cerebrovascular Accident: Yes Hx Seizures: Yes examined- data reviewed- discussed with risk control field representative/Plan Acute renal failure- ? Undelying CKD Others: (1) Respiratory failure (2) Sepsis (3) Cardiomyopathy (4) sigmoidectomy (5) Status post exploratory laparotomy (6) COPD (chronic obstructive pulmonary disease) Plan: Slow Hydrate- Post op care- Respiratory support- Avoid Nephrotoxics- Monitor renal parameters urine studies LESLIE VILLEDA Nov 28, 2016 12:23
[2016-11-28] MEDS: Pantoprazole Inj IVP SCH (13:21)
--- NOTE | 2016-11-28 13:25 | General Surgery Progress Note ---
General Surgery-Progress Note Subjective Symptoms: improved Objective Last 24 Hour Vital Signs Date Time Temp Pulse Resp B/P Pulse Ox O2 Delivery O2 Flow Rate FiO2 11/28/16 13:00 103 16 138/68 100 Mechanical Ventilator 50 11/28/16 12:00 97 11/28/16 12:00 99.8 104 16 148/62 100 Mechanical Ventilator 50 11/28/16 12:00 50 11/28/16 11:00 99 16 115/58 100 Mechanical Ventilator 50 11/28/16 10:26 107 19 50 11/28/16 10:20 50 11/28/16 10:00 102 16 139/69 100 Mechanical Ventilator 50 11/28/16 09:26 101 16 50 11/28/16 09:02 98.0 11/28/16 09:00 100 16 119/69 100 Mechanical Ventilator 50 11/28/16 08:00 50 11/28/16 08:00 108 11/28/16 08:00 98.0 104 16 124/55 100 Mechanical Ventilator 50 11/28/16 08:00 99.0 101 16 140/59 100 Mechanical Ventilator 50 11/28/16 07:00 98 16 105/52 100 Mechanical Ventilator 50 11/28/16 06:48 104 16 50 11/28/ 06:00 97 16 106/52 100 Mechanical Ventilator 50 11/28/16 05:00 104 16 105/52 100 Mechanical Ventilator 50 11/28/16 04:46 105 16 50 11/28/16 04:00 105 11/28/16 04:00 98.0 104 16 124/55 100 Mechanical Ventilator 50 11/28/16 04:00 50 11/28/16 03:17 106 16 50 11/28/16 03:00 98 16 108/69 100 Mechanical Ventilator 50 11/28/16 02:00 97 16 110/62 100 Mechanical Ventilator 50 11/28/16 01:19 103 16 50 11/28/17 01:00 98 16 96/48 100 Mechanical Ventilator 50 11/28/16 00:00 50 11/28/16 00:00 98.4 103 16 108/70 100 Mechanical Ventilator 50 11/28/16 00:00 104 11/27/16 23:09 112 17 50 7217 23:00 104 16 98/53 100 Mechanical Ventilator 50 11/27/16 22:00 105 15 106/66 100 Mechanical Ventilator 50 11/27/16 21:00 106 17 152/73 100 Mechanical Ventilator 50 11/27/16 20:56 110 20 50 11/27/16 20:00 98.8 110 18 120/68 100 Mechanical Ventilator 50 11/27/16 20:00 131/62 11/27/16 19:30 115 21 50 11/27/16 19:05 108 20 100/69 100 Mechanical Ventilator 50 11/27/16 18:00 118 20 100/58 100 Mechanical Ventilator 50 11/27/16 17:33 112 11/27/16 17:30 98.6 116 20 92/59 100 Mechanical Ventilator 50 11/27/16 17:20 118 20 97/69 100 Mechanical Ventilator 50 11/27/16 17:04 121 25 50 11/27/16 17:00 50 11/27/16 17:00 98.9 116 19 91/61 100 Mechanical Ventilator 50 11/27/16 16:45 114 19 101/76 100 Mechanical Ventilator 50 11/27/16 16:30 114 20 100/77 100 Mechanical Ventilator 50 11/27/16 16:15 111 20 100/77 100 Mechanical Ventilator 50.0 11/27/16 16:00 115 23 89/61 100 Mechanical Ventilator 50.0 11/27/16 15:50 117 24 114/89 100 Mechanical Ventilator 50.0 11/27/16 15:45 115 12 50 11/27/16 15:45 106 10 99 11/27/16 15:40 118 22 115/88 100 Mechanical Ventilator 50.0 11/27/16 15:35 99.8 112 20 118/56 100 Mechanical Ventilator 50.0 11/27/16 15:35 50 I&O Intake and Output 11/27/16 11/28/16 19:00 07:00 Intake Total 3175 ml 1200 ml Output Total 940 ml 870 ml Balance 2235 ml 330 ml Intake IV Total 2675 ml 1200 ml Other 500 ml Output Urine Total 440 ml 560 ml Gastric Drainage Total 200 ml 200 ml Drainage Total 200 ml 110 ml Estimated Blood Loss 100 ml # Bowel Movements 1 Dressing: dry Drains: misty Respiratory: clear Abdomen: soft, tenderness, absent bowel sounds Extremities: no tenderness Laboratory Tests Test 11/27/16 16:50 11/27/16 21:10 11/28/16 04:00 11/28/16 04:35 Arterial Blood pH 7.342 (7.350-7.450) Arterial Blood Partial Pressure CO2 41.1 mmHg (35.0-45.0) Arterial Blood Partial Pressure O2 143.0 mmHg (75.0-100.0) H Arterial Blood HCO3 21.8 mmol/L (22.0-26.0) L Arterial Blood Oxygen Saturation 98.7 % (92.0-98.0) H Arterial Blood Base Excess -3.7 David Test Positive White Blood Count 11.7 K/UL (4.8-10.8) H 10.1 K/UL (4.8-10.8) Red Blood Count 3.60 M/UL (4.70-6.10) L 3.43 M/UL (4.70-6.10) L Hemoglobin 11.7 G/DL (14.2-18.0) L 11.4 G/DL (14.2-18.0) L Hematocrit 35.4 % (42.0-52.0) L 34.4 % (42.0-52.0) L Mean Corpuscular Volume 98 FL (80-99) 100 FL (80-99) H Mean Corpuscular Hemoglobin 32.6 PG (27.0-31.0) H 33.4 PG (27.0-31.0) H Mean Corpuscular Hemoglobin Concent 33.1 G/DL (32.0-36.0) 33.3 G/DL (32.0-36.0) Red Cell Distribution Width 12.1 % (11.6-14.8) 12.4 % (11.6-14.8) Platelet Count 193 K/UL (150-450) 201 K/UL (150-450) Mean Platelet Volume 7.0 FL (6.5-10.1) 7.7 FL (6.5-10.1) Neutrophils (%) (Auto) 81.0 % (45.0-75.0) H 74.7 % (45.0-75.0) Lymphocytes (%) (Auto) 12.4 % (20.0-45.0) L 17.0 % (20.0-45.0) L Monocytes (%) (Auto) 6.2 % (1.0-10.0) 7.7 % (1.0-10.0) Eosinophils (%) (Auto) 0.0 % (0.0-3.0) 0.1 % (0.0-3.0) Basophils (%) (Auto) 0.3 % (0.0-2.0) 0.5 % (0.0-2.0) Sodium Level 139 mEQ/L (135-145) 139 mEQ/L (135-145) Potassium Level 4.4 mEQ/L (3.4-4.9) 5.0 mEQ/L (3.4-4.9) H Chloride Level 102 mEQ/L (98-107) 101 mEQ/L (98-107) Carbon Dioxide Level 21 mEQ/L (20-30) 20 mEQ/L (20-30) Anion Gap 16 (5-15) H 18 (5-15) H Blood Urea Nitrogen 54 mg/dL (7-23) H 59 mg/dL (7-23) H Creatinine 2.1 mg/dL (0.7-1.2) H 2.6 mg/dL (0.7-1.2) H Estimat Glomerular Filtration Rate mL/min (>60) mL/min (>60) Glucose Level 207 mg/dL (74-106) H 141 mg/dL (74-106) H Lactic Acid Level 2.10 mmol/L (0.66-2.22) Calcium Level 7.6 mg/dL (8.6-10.2) L 7.7 mg/dL (8.6-10.2) L Total Bilirubin 0.4 mg/dL (0.0-1.2) Direct Bilirubin 0.1 mg/dL (0.1-0.3) Aspartate Amino Transf (AST/SGOT) 19 U/L (5-40) Alanine Aminotransferase (ALT/SGPT) 12 U/L (3-41) Alkaline Phosphatase 110 U/L (40-129) Total Protein 5.8 g/dL (6.6-8.7) L Albumin 2.5 g/dL (3.5-5.2) L Globulin 3.3 g/dL Albumin/Globulin Ratio 0.7 (1.0-2.7) L Test 11/28/16 09:26 11/28/16 09:45 11/28/16 11:15 Arterial Blood pH 7.281 (7.350-7.450) Arterial Blood Partial Pressure CO2 48.5 mmHg (35.0-45.0) H Arterial Blood Partial Pressure O2 100.8 mmHg (75.0-100.0) H Arterial Blood HCO3 22.3 mmol/L (22.0-26.0) Arterial Blood Oxygen Saturation 96.8 % (92.0-98.0) Arterial Blood Base Excess -4.5 David Test Positive Lactic Acid Level 2.70 mmol/L (0.66-2.22) H 2.60 mmol/L (0.66-2.22) H Assessment Post-op Diagnosis Ischemia of sigmoid colon Plan Additional Comments continue as before WILMA BANUELOS Nov 28, 2016 13:25
[2016-11-28] MEDS ORDERED: Vancomycin 750 MG in D5W 275 ML IVPB SCH (15:00)
[2016-11-28] MEDS ORDERED: Tubing IV Secondary IV ONE (15:44)
--- NOTE | 2016-11-28 18:09 | 48 Hour Post Anesthesia Eval ---
Post Anesthesia Evaluation Procedure: Ex. laparotomy, sigmoidectomy, colostomy placement Date of Evaluation: Nov 28, 2016 Time of Evaluation: 18:10 Blood Pressure Systolic: 111 0: 58 Pulse Rate: 104 Respiratory Rate: 16 Temperature (Fahrenheit): 99.1 O2 Sat by Pulse Oximetry: 100 Airway: other - intubated, on ventilator Nausea: No Vomiting: No Pain Intensity: 0 Hydration Status: adequate Cardiopulmonary Status: at baseline Mental Status/LOC: patient returned to baseline Post-Anesthesia Complications: 0 Follow-up care needed: N/A - further care as per primary team SHAYLEE HODGES M.D. Nov 28, 2016 18:09
--- NOTE | 2016-11-28 21:02 | Consultation ---
Consult Note Consult Note ID DIC # [id number] MADISON FLYNN M.D. Nov 28, 2016 21:02
[2016-11-28] MEDS: Ertapenem 1 GM in NS 55 ML IV SCH (21:11)
[2016-11-28] MEDS ORDERED: Levophed 4mg/4mL Inj IV ONE (21:41)
[2016-11-28] MEDS: LORazepam Inj 2mg/ml 1ml IV PRN (21:52)
--- NOTE | 2016-11-28 22:45 | Consultation ---
DATE OF CONSULTATION: INFECTIOUS DISEASE CONSULT CONSULTING PHYSICIAN: Ivan Ballard M.D. REQUESTING PHYSICIAN: Brian Vance M.D. REASON FOR CONSULTATION: Evaluation of the patient for sepsis, ischemic colitis, and antibiotic management. HISTORY OF PRESENT ILLNESS: The patient is a 70-year-old male with multiple medical problems, as listed below, who was admitted to this medical center with abdominal distension and tenderness. The patient underwent exploratory laparotomy showing ischemic colitis. The patient underwent retention of the sigmoid and colostomy was placed. Apparently, the patient is in the ICU. Infectious Disease consultation has been requested for further evaluation of the patient and antibiotic management. PAST MEDICAL HISTORY: 1. Seizure disorder. 2. Atrial fibrillation. 3. Anemia. 4. Hypertension. 5. Asthma. 6. BPH. 7. Diabetes. 8. Anemia. MEDICATIONS: IV vancomycin and ertapenem. ALLERGIES: Penicillin. SOCIAL HISTORY: Unavailable. REVIEW OF SYSTEMS: Unobtainable. The patient is on the vent. PHYSICAL EXAMINATION: VITAL SIGNS: Temperature 99.8 degrees, pulse 86, respiratory rate 18, and blood pressure 117/71. HEENT: Mild pale conjunctivae. No icterus. NECK: No lymphadenopathy. CHEST: Coarse breath sounds. HEART: S1 and S2. ABDOMEN: Soft. Colostomy is present. Mildly distended. NEUROLOGIC: Awake. LABORATORY DATA: White blood cells 10, at the time of admission was 17, hemoglobin 11, and platelets 201,000. UA unremarkable. BUN 59 and creatinine 0.6. AST, ALT, and alkaline phosphatase was unremarkable. CT scan of the abdomen showed distended small bowel at the time of admission. Chest x-ray, [facility]. ASSESSMENT: The patient is a 70-year-old male with multiple medical problems, who has, 1. Intraabdominal sepsis. 2. Ischemic colitis status post surgery. 3. Leukocytosis. 4. Acute versus chronic renal insufficiency. PLAN: 1. We will continue the patient on IV ertapenem. 2. Monitor CBC. 3. Monitor BMP. 4. Monitor cultures (wound, sputum, urine, and blood). 5. Continue respiratory support. 6. Based on the patient's clinical course and labs, we will do further recommendation. Thank you Dr. Vance for allowing me to participate in the care of this patient. I will follow the patient with you during this hospitalization. Ivan Ballard M.D. DR: MEHUL JOB#: [id number] CC:
[2016-11-29] VITALS (24 sets, daily range): BP systolic 110–167; BP diastolic 53–79
[2016-11-29 05:51] LABS: BASOPHILS % (AUTO) 0.7 % (0.0-2.0); EOSINOPHILS % (AUTO) 0.6 % (0.0-3.0); LYMPHOCYTES % (AUTO) 12.4 % (20.0-45.0); MEAN CORPUSCULAR HEMOGLOBIN 33.3 PG (27.0-31.0); MEAN CORPUSCULAR HGB CONC 32.8 G/DL (32.0-36.0); MEAN CORPUSCULAR VOLUME 102 FL (80-99); MEAN PLATELET VOLUME 6.8 FL (6.5-10.1); MONOCYTES % (AUTO) 6.4 % (1.0-10.0); NEUTROPHILS % (AUTO) 79.8 % (45.0-75.0); PLATELET COUNT 185 K/UL (150-450); RED BLOOD COUNT 2.82 M/UL (4.70-6.10); RED CELL DISTRIBUTION WIDTH 12.2 % (11.6-14.8); WHITE BLOOD COUNT 10.9 K/UL (4.8-10.8)
[2016-11-29] MEDS: D5 1/2NS 1,000 ML IV SCH (05:51)
[2016-11-29] MEDS: Metoclopramide 10mg/2ml Inj IVP SCH ×3 (05:51→21:29)
[2016-11-29 06:10] LABS: ALANINE AMINOTRANSFERASE 18 U/L (3-41); ALBUMIN/GLOBULIN RATIO 0.8 (1.0-2.7); ANION GAP 9 (5-15); ASPARTATE AMINO TRANSFERASE 70 U/L (5-40); CALCIUM 7.8 mg/dL (8.6-10.2); CARBON DIOXIDE 22 mEQ/L (20-30); CHLORIDE 106 mEQ/L (98-107); CHOLESTEROL 130 mg/dL (< 200); CHOLESTEROL/HDL RATIO 6.8 (3.3-4.4); CREATININE 1.9 mg/dL (0.7-1.2); CRP QUANT 29.8 mg/dL (< 0.5); HEMOLYSIS 6; LDL CHOLESTEROL (CALC.) 83 mg/dL (60-99); MAGNESIUM 1.7 mg/dL (1.7-2.5); PHOSPHORUS 3.3 mg/dL (2.5-4.8); POTASSIUM 4.5 mEQ/L (3.4-4.9); SODIUM 137 mEQ/L (135-145); TOTAL PROTEIN 5.5 g/dL (6.6-8.7); URIC ACID 6.2 mg/dL (3.0-7.5)
[2016-11-29 06:22] LABS: HEMOGLOBIN A1C 5.7 % (< 6.0)
--- NOTE | 2016-11-29 08:17 | Pulmonolgy Critical Care Note ---
Critical Care - Asmt/Plan Problems: (1) Sepsis (2) Respiratory failure (3) Status post exploratory laparotomy (4) GRETEL (acute kidney injury) (5) sigmoidectomy (6) COPD (chronic obstructive pulmonary disease) (7) Cardiomyopathy (8) Diabetes Respiratory: monitor respiratory rate, adjust FIO2, CXR, ABG Cardiac: continue to monitor HR/BP Renal: F/U I&O, keep IV fluid, increase IV fluid, check electrolytes Infectious Disease: check cultures, continue antibiotics Gastrointestinal: hold feedings Endocrine: monitor blood sugar Hematologic: monitor H/H, transfuse if hgb<8.5 Neurologic: PRN Ativan, keep patient comfortable Affect: PRN ativan Prophylaxis: Protonix, Heparin Disposition: keep in ICU Time Spent (Minutes): 60 Notes Reviewed: renal Discussed with: nurses, consultants, casework managerdisease case manager - Objective Last 24 Hour Vital Signs Date Time Temp Pulse Resp B/P Pulse Ox O2 Delivery O2 Flow Rate FiO2 11/29/16 07:00 96 16 143/69 99 Mechanical Ventilator 50 11/29/16 06:55 98 16 50 11/29/16 06:00 97 16 124/53 100 Mechanical Ventilator 50 11/29/16 05:01 103 17 50 11/29/16 05:00 103 16 157/63 100 Mechanical Ventilator 50 11/29/16 05:00 100.3 11/29/16 04:00 50 11/29/16 04:00 100.3 102 16 152/76 99 Mechanical Ventilator 50 11/29/16 04:00 102 11/29/16 03:15 99 16 50 11/29/16 03:00 102 16 143/61 100 Mechanical Ventilator 50 11/29/16 02:00 98 16 134/54 100 Mechanical Ventilator 50 11/29/16 01:00 96 16 110/66 100 Mechanical Ventilator 50 11/29/16 00:56 105 17 50 11/29/16 00:00 100 11/29/16 00:00 50 11/29/16 00:00 100.8 100 16 110/66 99 Mechanical Ventilator 50 11/28/16 23:11 101 16 50 11/28/16 23:00 100 16 136/56 100 Mechanical Ventilator 50 11/28/16 22:00 101 16 98/50 100 Mechanical Ventilator 50 11/28/16 21:44 55/46 11/28/16 21:30 105 17 50 11/28/16 21:00 102 16 71/48 100 Mechanical Ventilator 50 11/28/16 20:00 50 11/28/16 20:00 109 11/28/16 20:00 117/71 11/28/16 20:00 99.9 105 16 117/71 100 Mechanical Ventilator 50 11/28/16 19:30 105 19 50 11/28/16 19:00 102 16 150/113 100 Mechanical Ventilator 50 11/28/16 18:09 104 16 100 11/28/16 18:00 105 16 118/56 100 Mechanical Ventilator 50 11/28/16 17:12 99.1 11/28/16 17:00 99.1 104 16 111/58 100 Mechanical Ventilator 50 11/28/16 16:57 104 16 50 11/28/16 16:00 109 11/28/16 16:00 50 11/28/16 16:00 100.0 105 16 100/37 99 Mechanical Ventilator 50 11/28/16 15:00 97 16 132/78 100 Mechanical Ventilator 50 11/28/16 14:47 101 16 50 11/28/16 14:00 96 16 130/57 100 Mechanical Ventilator 50 11/28/16 13:52 99.8 11/28/16 13:12 102 20 50 11/28/16 13:00 103 16 138/68 100 Mechanical Ventilator 50 11/28/16 12:00 97 11/28/16 12:00 99.8 104 16 148/62 100 Mechanical Ventilator 50 11/28/16 12:00 50 11/28/16 11:00 99 16 115/58 100 Mechanical Ventilator 50 11/28/16 10:26 107 19 50 11/28/16 10:20 50 11/28/16 10:00 102 16 139/69 100 Mechanical Ventilator 50 11/28/16 09:26 101 16 50 11/28/16 09:00 100 16 119/69 100 Mechanical Ventilator 50 Status: awake Condition: critical HEENT: atraumatic Neck: full ROM Lungs: clear Heart: HR/BP unstable, regular Abdomen: soft, active bowel sounds Extremities: no C/C/E Decubiti: location, stage Micro: Microbiology Date/Time Source Procedure Growth Status 11/28/16 11:30 Sputum Gram Stain Pending Resulted 11/28/16 11:30 Sputum Sputum Culture - Preliminary NO GROWTH Resulted 11/27/16 11:03 Urine,Clean Catch Urine Culture - Preliminary NO GROWTH AFTER 24 HOURS Resulted 11/27/16 13:43 Abdominal Fluid Gram Stain - Final Resulted 11/27/16 13:43 Abdominal Fluid Aerobic Culture - Preliminary NO GROWTH Resulted 11/27/16 13:43 Abdominal Fluid Anaerobic Culture - Preliminary Resulted 11/27/16 09:30 Rectum VRE Culture - Final NO VANCOMYCIN RESISTANT ENTEROCOCCUS ... Complete Critical Care - Subjective ROS Limited/Unobtainable: Yes - 2 ICU Day: 2 Intubation Day: 2 Condition: critical EKG Rhythm: Sinus Rhythm FI02: 50 Vent Support Breath Rate: 16 Vent Support Mode: AC Vent Tidal Volume: 600 Sputum Amount: Small PIP: 19 Fluids: d5 1/2 ns 100 cc/hour I&O: Intake and Output 11/28/16 11/29/16 19:00 07:00 Intake Total 1416.6 ml 1200 ml Output Total 475 ml 705 ml Balance 941.6 ml 495 ml Intake IV Total 1416.6 ml 1200 ml Output Urine Total 435 ml 445 ml Stool Total 20 ml Drainage Total 40 ml 140 ml Other 100 ml CXR: no change ET-Tube: 7.5 ET Position: 22 Labs: Laboratory Tests Test 11/28/16 09:26 11/28/16 09:45 11/28/16 11:15 11/28/16 21:45 Arterial Blood pH 7.281 (7.350-7.450) Arterial Blood Partial Pressure CO2 48.5 mmHg (35.0-45.0) H Arterial Blood Partial Pressure O2 100.8 mmHg (75.0-100.0) H Arterial Blood HCO3 22.3 mmol/L (22.0-26.0) Arterial Blood Oxygen Saturation 96.8 % (92.0-98.0) Arterial Blood Base Excess -4.5 David Test Positive Lactic Acid Level 2.70 mmol/L (0.66-2.22) H 2.60 mmol/L (0.66-2.22) H 1.10 mmol/L (0.66-2.22) Test 11/29/16 04:00 11/29/16 04:30 Urine Eosinophils None seen Urine Random Sodium 24 mmol/L White Blood Count 10.9 K/UL (4.8-10.8) H Red Blood Count 2.82 M/UL (4.70-6.10) L Hemoglobin 9.4 G/DL (14.2-18.0) L Hematocrit 28.6 % (42.0-52.0) L Mean Corpuscular Volume 102 FL (80-99) H Mean Corpuscular Hemoglobin 33.3 PG (27.0-31.0) H Mean Corpuscular Hemoglobin Concent 32.8 G/DL (32.0-36.0) Red Cell Distribution Width 12.2 % (11.6-14.8) Platelet Count 185 K/UL (150-450) Mean Platelet Volume 6.8 FL (6.5-10.1) Neutrophils (%) (Auto) 79.8 % (45.0-75.0) H Lymphocytes (%) (Auto) 12.4 % (20.0-45.0) L Monocytes (%) (Auto) 6.4 % (1.0-10.0) Eosinophils (%) (Auto) 0.6 % (0.0-3.0) Basophils (%) (Auto) 0.7 % (0.0-2.0) Sodium Level 137 mEQ/L (135-145) Potassium Level 4.5 mEQ/L (3.4-4.9) Chloride Level 106 mEQ/L (98-107) Carbon Dioxide Level 22 mEQ/L (20-30) Anion Gap 9 (5-15) Blood Urea Nitrogen 55 mg/dL (7-23) H Creatinine 1.9 mg/dL (0.7-1.2) H Estimat Glomerular Filtration Rate mL/min (>60) Glucose Level 135 mg/dL (74-106) H Hemoglobin A1c 5.7 % (< 6.0) Lactic Acid Level 0.70 mmol/L (0.66-2.22) Uric Acid 6.2 mg/dL (3.0-7.5) Calcium Level 7.8 mg/dL (8.6-10.2) L Phosphorus Level 3.3 mg/dL (2.5-4.8) Magnesium Level 1.7 mg/dL (1.7-2.5) Total Bilirubin 0.4 mg/dL (0.0-1.2) Gamma Glutamyl Transpeptidase 65 U/L (8-61) H Aspartate Amino Transf (AST/SGOT) 70 U/L (5-40) H Alanine Aminotransferase (ALT/SGPT) 18 U/L (3-41) Alkaline Phosphatase 78 U/L (40-129) Total Creatine Kinase 5213 U/L (38-174) H C-Reactive Protein, Quantitative 29.8 mg/dL (< 0.5) H Pro-B-Type Natriuretic Peptide 1885 pg/mL (0-125) H Total Protein 5.5 g/dL (6.6-8.7) L Albumin 2.5 g/dL (3.5-5.2) L Globulin 3.0 g/dL Albumin/Globulin Ratio 0.8 (1.0-2.7) L Triglycerides Level 140 mg/dL (< 150) Cholesterol Level 130 mg/dL (< 200) LDL Cholesterol 83 mg/dL (60-99) HDL Cholesterol 19 mg/dL (> 60) Cholesterol/HDL Ratio 6.8 (3.3-4.4) H BUCKY WOLF Nov 29, 2016 08:17
[2016-11-29] MEDS: Pantoprazole Inj IVP SCH (09:30)
[2016-11-29] MEDS: Enoxaparin 40mg Inj SUBQ SCH (09:32)
--- NOTE | 2016-11-29 09:52 | Diagnostic Imaging Report ---
Indication: ET tube adjustment Technique: XRAY CHEST 1 V Comparison:11/28/2016 Findings: Endotracheal tube is again seen. The tip of the tube likely lies above the karolina but the tip is difficult to identify. An intra-aortic stent graft is again seen. The cardio mediastinal silhouette is unchanged. There is now linear density in both bases.. No other change from previous study. Impression: Endotracheal tube tip likely above the karolina though difficult to identify. Atelectasis now present in the right base. Scarring or atelectasis in left base..
--- NOTE | 2016-11-29 11:20 | General Surgery Progress Note ---
General Surgery-Progress Note Objective Last 24 Hour Vital Signs Date Time Temp Pulse Resp B/P Pulse Ox O2 Delivery O2 Flow Rate FiO2 11/29/16 10:00 94 16 124/79 98 Mechanical Ventilator 50 11/29/16 09:00 96 16 146/73 99 Mechanical Ventilator 50 11/29/16 09:00 97 16 50 11/29/16 08:00 50 11/29/16 08:00 96 11/29/16 08:00 98.7 96 16 116/77 99 Mechanical Ventilator 50 11/29/16 07:00 96 16 143/69 99 Mechanical Ventilator 50 11/29/16 06:55 98 16 50 11/29/16 06:00 97 16 124/53 100 Mechanical Ventilator 50 11/29/16 05:01 103 17 50 11/29/16 05:00 103 16 157/63 100 Mechanical Ventilator 50 11/29/16 05:00 100.3 11/29/16 04:00 50 11/29/16 04:00 100.3 102 16 152/76 99 Mechanical Ventilator 50 11/29/16 04:00 102 11/29/16 03:15 99 16 50 11/29/16 03:00 102 16 143/61 100 Mechanical Ventilator 50 11/29/16 02:00 98 16 134/54 100 Mechanical Ventilator 50 11/29/16 01:00 96 16 110/66 100 Mechanical Ventilator 50 11/29/16 00:56 105 17 50 11/29/16 00:00 100 11/29/16 00:00 50 11/29/16 00:00 100.8 100 16 110/66 99 Mechanical Ventilator 50 11/28/16 23:11 101 16 50 11/28/16 23:00 100 16 136/56 100 Mechanical Ventilator 50 11/28/16 22:00 101 16 98/50 100 Mechanical Ventilator 50 11/28/16 21:44 55/46 11/28/16 21:30 105 17 50 11/28/16 21:00 102 16 71/48 100 Mechanical Ventilator 50 11/28/16 20:00 50 11/28/16 20:00 109 11/28/16 20:00 117/71 11/28/16 20:00 99.9 105 16 117/71 100 Mechanical Ventilator 50 11/28/16 19:30 105 19 50 11/28/16 19:00 102 16 150/113 100 Mechanical Ventilator 50 11/28/16 18:09 104 16 100 11/28/16 18:00 105 16 118/56 100 Mechanical Ventilator 50 11/28/16 17:12 99.1 11/28/16 17:00 99.1 104 16 111/58 100 Mechanical Ventilator 50 11/28/16 16:57 104 16 50 11/28/16 16:00 109 11/28/16 16:00 50 11/28/16 16:00 100.0 105 16 100/37 99 Mechanical Ventilator 50 11/28/16 15:00 97 16 132/78 100 Mechanical Ventilator 50 11/28/16 14:47 101 16 50 11/28/16 14:00 96 16 130/57 100 Mechanical Ventilator 50 11/28/16 13:52 99.8 11/28/16 13:12 102 20 50 11/28/16 13:00 103 16 138/68 100 Mechanical Ventilator 50 11/28/16 12:00 97 11/28/16 12:00 99.8 104 16 148/62 100 Mechanical Ventilator 50 11/28/16 12:00 50 I&O Intake and Output 11/28/16 11/29/16 19:00 07:00 Intake Total 1416.6 ml 1200 ml Output Total 475 ml 705 ml Balance 941.6 ml 495 ml Intake IV Total 1416.6 ml 1200 ml Output Urine Total 435 ml 445 ml Stool Total 20 ml Drainage Total 40 ml 140 ml Other 100 ml Dressing: dry Drains: misty Abdomen: soft, tenderness, absent bowel sounds Extremities: no tenderness Laboratory Tests Test 11/28/16 21:45 11/29/16 04:00 11/29/16 04:30 Lactic Acid Level 1.10 mmol/L (0.66-2.22) 0.70 mmol/L (0.66-2.22) Urine Eosinophils None seen Urine Random Sodium 24 mmol/L White Blood Count 10.9 K/UL (4.8-10.8) H Red Blood Count 2.82 M/UL (4.70-6.10) L Hemoglobin 9.4 G/DL (14.2-18.0) L Hematocrit 28.6 % (42.0-52.0) L Mean Corpuscular Volume 102 FL (80-99) H Mean Corpuscular Hemoglobin 33.3 PG (27.0-31.0) H Mean Corpuscular Hemoglobin Concent 32.8 G/DL (32.0-36.0) Red Cell Distribution Width 12.2 % (11.6-14.8) Platelet Count 185 K/UL (150-450) Mean Platelet Volume 6.8 FL (6.5-10.1) Neutrophils (%) (Auto) 79.8 % (45.0-75.0) H Lymphocytes (%) (Auto) 12.4 % (20.0-45.0) L Monocytes (%) (Auto) 6.4 % (1.0-10.0) Eosinophils (%) (Auto) 0.6 % (0.0-3.0) Basophils (%) (Auto) 0.7 % (0.0-2.0) Sodium Level 137 mEQ/L (135-145) Potassium Level 4.5 mEQ/L (3.4-4.9) Chloride Level 106 mEQ/L (98-107) Carbon Dioxide Level 22 mEQ/L (20-30) Anion Gap 9 (5-15) Blood Urea Nitrogen 55 mg/dL (7-23) H Creatinine 1.9 mg/dL (0.7-1.2) H Estimat Glomerular Filtration Rate mL/min (>60) Glucose Level 135 mg/dL (74-106) H Hemoglobin A1c 5.7 % (< 6.0) Uric Acid 6.2 mg/dL (3.0-7.5) Calcium Level 7.8 mg/dL (8.6-10.2) L Phosphorus Level 3.3 mg/dL (2.5-4.8) Magnesium Level 1.7 mg/dL (1.7-2.5) Total Bilirubin 0.4 mg/dL (0.0-1.2) Gamma Glutamyl Transpeptidase 65 U/L (8-61) H Aspartate Amino Transf (AST/SGOT) 70 U/L (5-40) H Alanine Aminotransferase (ALT/SGPT) 18 U/L (3-41) Alkaline Phosphatase 78 U/L (40-129) Total Creatine Kinase 5213 U/L (38-174) H C-Reactive Protein, Quantitative 29.8 mg/dL (< 0.5) H Pro-B-Type Natriuretic Peptide 1885 pg/mL (0-125) H Total Protein 5.5 g/dL (6.6-8.7) L Albumin 2.5 g/dL (3.5-5.2) L Globulin 3.0 g/dL Albumin/Globulin Ratio 0.8 (1.0-2.7) L Triglycerides Level 140 mg/dL (< 150) Cholesterol Level 130 mg/dL (< 200) LDL Cholesterol 83 mg/dL (60-99) HDL Cholesterol 19 mg/dL (> 60) Cholesterol/HDL Ratio 6.8 (3.3-4.4) H Assessment Post-op Diagnosis Ischemia of sigmoid colon Plan Additional Comments continue as before WILMA BANUELOS Nov 29, 2016 11:20
--- NOTE | 2016-11-29 12:14 | General Progress Note ---
Assessment/Plan Status: unchanged Assessment/Plan Acute renal failure- ? Undelying CKD Cr lower 2.6 to 1.9 Others: (1) Respiratory failure (2) Sepsis (3) Cardiomyopathy (4) sigmoidectomy (5) Status post exploratory laparotomy (6) COPD (chronic obstructive pulmonary disease) Plan: Slow Hydrate- Post op care- Respiratory support- Avoid Nephrotoxics- Monitor renal parameters urine studies per orders Subjective ROS Limited/Unobtainable: Yes Allergies: Coded Allergies: PENICILLINS (Verified Allergy, Unknown, 03/08/15) Objective Last 24 Hour Vital Signs Date Time Temp Pulse Resp B/P Pulse Ox O2 Delivery O2 Flow Rate FiO2 11/29/16 11:33 40 11/29/16 11:00 96 16 121/65 98 Mechanical Ventilator 50 11/29/16 10:51 93 16 50 11/29/16 10:00 94 16 124/79 98 Mechanical Ventilator 50 11/29/16 09:00 96 16 146/73 99 Mechanical Ventilator 50 11/29/16 09:00 97 16 50 11/29/16 08:00 50 11/29/16 08:00 96 11/29/16 08:00 98.7 96 16 116/77 99 Mechanical Ventilator 50 11/29/16 07:00 96 16 143/69 99 Mechanical Ventilator 50 11/29/16 06:55 98 16 50 11/29/16 06:00 97 16 124/53 100 Mechanical Ventilator 50 11/29/16 05:01 103 17 50 11/29/16 05:00 103 16 157/63 100 Mechanical Ventilator 50 11/29/16 05:00 100.3 11/29/16 04:00 50 11/29/16 04:00 100.3 102 16 152/76 99 Mechanical Ventilator 50 11/29/16 04:00 102 11/29/16 03:15 99 16 50 11/29/16 03:00 102 16 143/61 100 Mechanical Ventilator 50 11/29/16 02:00 98 16 134/54 100 Mechanical Ventilator 50 11/29/16 01:00 96 16 110/66 100 Mechanical Ventilator 50 11/29/16 00:56 105 17 50 11/29/16 00:00 100 11/29/16 00:00 50 11/29/16 00:00 100.8 100 16 110/66 99 Mechanical Ventilator 50 11/28/16 23:11 101 16 50 11/28/16 23:00 100 16 136/56 100 Mechanical Ventilator 50 11/28/16 22:00 101 16 98/50 100 Mechanical Ventilator 50 11/28/16 21:44 55/46 11/28/16 21:30 105 17 50 11/28/16 21:00 102 16 71/48 100 Mechanical Ventilator 50 11/28/16 20:00 50 11/28/16 20:00 109 11/28/16 20:00 117/71 11/28/16 20:00 99.9 105 16 117/71 100 Mechanical Ventilator 50 11/28/16 19:30 105 19 50 11/28/16 19:00 102 16 150/113 100 Mechanical Ventilator 50 11/28/16 18:09 104 16 100 11/28/16 18:00 105 16 118/56 100 Mechanical Ventilator 50 11/28/16 17:12 99.1 11/28/16 17:00 99.1 104 16 111/58 100 Mechanical Ventilator 50 11/28/16 16:57 104 16 50 11/28/16 16:00 109 11/28/16 16:00 50 11/28/16 16:00 100.0 105 16 100/37 99 Mechanical Ventilator 50 11/28/16 15:00 97 16 132/78 100 Mechanical Ventilator 50 11/28/16 14:47 101 16 50 11/28/16 14:00 96 16 130/57 100 Mechanical Ventilator 50 11/28/16 13:52 99.8 11/28/16 13:12 102 20 50 11/28/16 13:00 103 16 138/68 100 Mechanical Ventilator 50 Intake and Output 11/28/16 11/29/16 19:00 07:00 Intake Total 1416.6 ml 1200 ml Output Total 475 ml 705 ml Balance 941.6 ml 495 ml Intake IV Total 1416.6 ml 1200 ml Output Urine Total 435 ml 445 ml Stool Total 20 ml Drainage Total 40 ml 140 ml Other 100 ml Laboratory Tests 11/28/16 21:45: Lactic Acid Level 1.10 11/29/16 04:00: Urine Eosinophils None seen, Urine Random Sodium 24 11/29/16 04:30: Lactic Acid Level 0.70, White Blood Count 10.9H, Red Blood Count 2.82L, Hemoglobin 9.4L, Hematocrit 28.6L, Mean Corpuscular Volume 102H, Mean Corpuscular Hemoglobin 33.3H, Mean Corpuscular Hemoglobin Concent 32.8, Red Cell Distribution Width 12.2, Platelet Count 185, Mean Platelet Volume 6.8, Neutrophils (%) (Auto) 79.8H, Lymphocytes (%) (Auto) 12.4L, Monocytes (%) (Auto ) 6.4, Eosinophils (%) (Auto) 0.6, Basophils (%) (Auto) 0.7, Sodium Level 137, Potassium Level 4.5, Chloride Level 106, Carbon Dioxide Level 22, Anion Gap 9, Blood Urea Nitrogen 55H, Creatinine 1.9H, Estimat Glomerular Filtration Rate , Glucose Level 135H, Hemoglobin A1c 5.7, Uric Acid 6.2, Calcium Level 7.8L, Phosphorus Level 3.3, Magnesium Level 1.7, Total Bilirubin 0.4, Gamma Glutamyl Transpeptidase 65H, Aspartate Amino Transf (AST/SGOT) 70H, Alanine Aminotransferase (ALT/SGPT) 18, Alkaline Phosphatase 78, Total Creatine Kinase 5213H, C-Reactive Protein, Quantitative 29.8H, Pro-B-Type Natriuretic Peptide 1885H, Total Protein 5.5L, Albumin 2.5L, Globulin 3.0, Albumin/Globulin Ratio 0.8L, Triglycerides Level 140, Cholesterol Level 130, LDL Cholesterol 83, HDL Cholesterol 19, Cholesterol/HDL Ratio 6.8H Height (Feet): 5 Height (Inches): 11.00 Weight (Pounds): 175 General Appearance: mild distress Cardiovascular: tachycardia Respiratory/Chest: decreased breath sounds Abdomen: distended LESLIE VILLEDA Nov 29, 2016 12:14
[2016-11-29] MEDS: D5NS 1,000 ML IV SCH (12:39)
--- NOTE | 2016-11-29 15:38 | Infectious Diseases Prog Note ---
Assessment/Plan Assessment/Plan A: ASSESSMENT: The patient is a 70-year-old male with Sepsis Fever Leukocytosis Ischemic colitis SP sigmoidectomy and colostomy GRETEL improving Seizure disorder Atrial fibrillation Anemia Hypertension Asthma BPH Diabetes Anemia PLAN: continue the patient on IV ertapenem d# 3 Monitor CBC. Monitor BMP. Monitor cultures (wound, sputum, urine, and blood). Continue respiratory support Subjective Allergies: Coded Allergies: PENICILLINS (Verified Allergy, Unknown, 03/08/15) Subjective on vent Objective Vital Signs Last 24 Hour Vital Signs Date Time Temp Pulse Resp B/P Pulse Ox O2 Delivery O2 Flow Rate FiO2 11/29/16 14:00 103 14 142/73 98 Mechanical Ventilator 40 11/29/16 13:00 103 16 40 11/29/16 13:00 101 15 151/70 97 Mechanical Ventilator 40 11/29/16 12:00 40 11/29/16 12:00 103 11/29/16 12:00 99.2 95 16 140/66 98 Mechanical Ventilator 40 11/29/16 11:33 40 11/29/16 11:30 40 11/29/16 11:00 96 16 121/65 98 Mechanical Ventilator 50 11/29/16 10:51 93 16 50 11/29/16 10:00 94 16 124/79 98 Mechanical Ventilator 50 11/29/16 09:00 96 16 146/73 99 Mechanical Ventilator 50 11/29/16 09:00 97 16 50 11/29/16 08:00 50 11/29/16 08:00 96 11/29/16 08:00 98.7 96 16 116/77 99 Mechanical Ventilator 50 11/29/16 07:00 96 16 143/69 99 Mechanical Ventilator 50 11/29/16 06:55 98 16 50 11/29/16 06:00 97 16 124/53 100 Mechanical Ventilator 50 11/29/16 05:01 103 17 50 11/29/16 05:00 103 16 157/63 100 Mechanical Ventilator 50 11/29/16 05:00 100.3 11/29/16 04:00 50 11/29/16 04:00 100.3 102 16 152/76 99 Mechanical Ventilator 50 11/29/16 04:00 102 11/29/16 03:15 99 16 50 11/29/16 03:00 102 16 143/61 100 Mechanical Ventilator 50 11/29/16 02:00 98 16 134/54 100 Mechanical Ventilator 50 11/29/16 01:00 96 16 110/66 100 Mechanical Ventilator 50 11/29/16 00:56 105 17 50 11/29/16 00:00 100 11/29/16 00:00 50 11/29/16 00:00 100.8 100 16 110/66 99 Mechanical Ventilator 50 11/28/16 23:11 101 16 50 11/28/16 23:00 100 16 136/56 100 Mechanical Ventilator 50 11/28/16 22:00 101 16 98/50 100 Mechanical Ventilator 50 11/28/16 21:44 55/46 11/28/16 21:30 105 17 50 11/28/16 21:00 102 16 71/48 100 Mechanical Ventilator 50 11/28/16 20:00 50 11/28/16 20:00 109 11/28/16 20:00 117/71 11/28/16 20:00 99.9 105 16 117/71 100 Mechanical Ventilator 50 11/28/16 19:30 105 19 50 11/28/16 19:00 102 16 150/113 100 Mechanical Ventilator 50 11/28/16 18:09 104 16 100 11/28/16 18:00 105 16 118/56 100 Mechanical Ventilator 50 11/28/16 17:12 99.1 11/28/16 17:00 99.1 104 16 111/58 100 Mechanical Ventilator 50 11/28/16 16:57 104 16 50 11/28/16 16:00 109 11/28/16 16:00 50 11/28/16 16:00 100.0 105 16 100/37 99 Mechanical Ventilator 50 Height (Feet): 5 Height (Inches): 11.00 Weight (Pounds): 175 HEENT: anicteric Respiratory/Chest: no respiratory distress Cardiovascular: regular rhythm Abdomen: no organomegaly Skin: no lesions Microbiology Date/Time Source Procedure Growth Status 11/28/16 11:30 Sputum Gram Stain - Final Resulted 11/28/16 11:30 Sputum Sputum Culture - Preliminary NO GROWTH Resulted 11/27/16 11:03 Urine,Clean Catch Urine Culture - Preliminary NO GROWTH AFTER 24 HOURS Resulted 11/27/16 13:43 Abdominal Fluid Gram Stain - Final Resulted 11/27/16 13:43 Abdominal Fluid Aerobic Culture - Preliminary NO GROWTH AFTER 48 HOURS Resulted 11/27/16 13:43 Abdominal Fluid Anaerobic Culture - Preliminary NO GROWTH AFTER 48 HOURS Resulted 11/27/16 09:30 Rectum VRE Culture - Final NO VANCOMYCIN RESISTANT ENTEROCOCCUS ... Complete Laboratory Tests Test 11/28/16 21:45 11/29/16 04:00 11/29/16 04:30 Lactic Acid Level 1.10 mmol/L (0.66-2.22) 0.70 mmol/L (0.66-2.22) Urine Eosinophils None seen Urine Random Sodium 24 mmol/L White Blood Count 10.9 K/UL (4.8-10.8) H Red Blood Count 2.82 M/UL (4.70-6.10) L Hemoglobin 9.4 G/DL (14.2-18.0) L Hematocrit 28.6 % (42.0-52.0) L Mean Corpuscular Volume 102 FL (80-99) H Mean Corpuscular Hemoglobin 33.3 PG (27.0-31.0) H Mean Corpuscular Hemoglobin Concent 32.8 G/DL (32.0-36.0) Red Cell Distribution Width 12.2 % (11.6-14.8) Platelet Count 185 K/UL (150-450) Mean Platelet Volume 6.8 FL (6.5-10.1) Neutrophils (%) (Auto) 79.8 % (45.0-75.0) H Lymphocytes (%) (Auto) 12.4 % (20.0-45.0) L Monocytes (%) (Auto) 6.4 % (1.0-10.0) Eosinophils (%) (Auto) 0.6 % (0.0-3.0) Basophils (%) (Auto) 0.7 % (0.0-2.0) Sodium Level 137 mEQ/L (135-145) Potassium Level 4.5 mEQ/L (3.4-4.9) Chloride Level 106 mEQ/L (98-107) Carbon Dioxide Level 22 mEQ/L (20-30) Anion Gap 9 (5-15) Blood Urea Nitrogen 55 mg/dL (7-23) H Creatinine 1.9 mg/dL (0.7-1.2) H Estimat Glomerular Filtration Rate mL/min (>60) Glucose Level 135 mg/dL (74-106) H Hemoglobin A1c 5.7 % (< 6.0) Uric Acid 6.2 mg/dL (3.0-7.5) Calcium Level 7.8 mg/dL (8.6-10.2) L Phosphorus Level 3.3 mg/dL (2.5-4.8) Magnesium Level 1.7 mg/dL (1.7-2.5) Total Bilirubin 0.4 mg/dL (0.0-1.2) Gamma Glutamyl Transpeptidase 65 U/L (8-61) H Aspartate Amino Transf (AST/SGOT) 70 U/L (5-40) H Alanine Aminotransferase (ALT/SGPT) 18 U/L (3-41) Alkaline Phosphatase 78 U/L (40-129) Total Creatine Kinase 5213 U/L (38-174) H C-Reactive Protein, Quantitative 29.8 mg/dL (< 0.5) H Pro-B-Type Natriuretic Peptide 1885 pg/mL (0-125) H Total Protein 5.5 g/dL (6.6-8.7) L Albumin 2.5 g/dL (3.5-5.2) L Globulin 3.0 g/dL Albumin/Globulin Ratio 0.8 (1.0-2.7) L Triglycerides Level 140 mg/dL (< 150) Cholesterol Level 130 mg/dL (< 200) LDL Cholesterol 83 mg/dL (60-99) HDL Cholesterol 19 mg/dL (> 60) Cholesterol/HDL Ratio 6.8 (3.3-4.4) H Current Medications Medications (Trade) Dose Ordered Sig/Ady Route PRN Reason Start Time Stop Time Status Last Admin Dose Admin Acetaminophen (Tylenol) 650 mg Q4H PRN ORAL fever 11/27/16 17:00 12/27/16 16:59 11/28/16 16:13 Acetaminophen (Tylenol) 650 mg Q4H PRN RECTAL Mild Pain (Pain Scale 1-3) 11/27/16 15:30 12/27/16 15:29 11/29/16 03:44 Albuterol/ Ipratropium 3 ml 3 ml EVERY 4 HOURS PRN HHN Shortness of Breath 11/27/16 21:00 12/02/16 20:59 Dextrose/Sodium Chloride (D5ns) 1,000 ml @ 75 mls/hr [id number] IV 11/29/16 12:30 12/29/16 12:29 11/29/16 12:39 Enoxaparin Sodium (Lovenox) 40 mg DAILY SUBQ 11/28/16 09:00 12/28/16 08:59 11/29/16 09:32 Ertapenem/Sodium Chloride (INVanz/Sodium Chloride) 55 ml @ 110 mls/hr Q24H IV 11/27/16 21:00 12/02/16 20:59 11/28/16 21:11 Hydromorphone HCl (Dilaudid) 2 mg EVERY 4 HOURS IVP 11/27/16 17:00 12/04/16 16:59 11/29/16 13:36 Hydromorphone HCl 1 mg 1 mg Q4H PRN IVP MILD-MOD PAIN 11/27/16 18:30 12/04/16 18:29 Lorazepam 2 mg 2 mg EVERY 2 HOURS PRN IV For Anxiety 11/27/16 17:00 12/04/16 16:59 11/28/16 21:52 Metoclopramide HCl (Reglan) 10 mg EVERY 8 HOURS IVP 11/27/16 22:00 12/27/16 21:59 11/29/16 13:36 Norepinephrine Bitartrate/ Dextrose (Levophed/D5W) 254 ml @ 0 mls/hr Q24H IV 11/27/16 20:00 12/27/16 19:59 11/28/16 21:44 Ondansetron HCl (Zofran) 4 mg Q6H PRN IVP Nausea & Vomiting 11/27/16 17:00 12/27/16 16:59 Pantoprazole (Protonix) 40 mg DAILY IVP 11/27/16 20:00 12/27/16 19:59 11/29/16 09:30 Polyethylene Glycol (Miralax) 17 gm DAILYPRN PRN ORAL Constipation 11/27/16 17:00 12/27/16 16:59 MADISON FLYNN M.D. Nov 29, 2016 15:38
[2016-11-29] MEDS: Ertapenem 1 GM in NS 55 ML IV SCH (20:38)
[2016-11-29] MEDS: LORazepam Inj 2mg/ml 1ml IV PRN (23:33)
[2016-11-30] VITALS (25 sets, daily range): BP systolic 109–176; BP diastolic 63–97
[2016-11-30] MEDS: D5NS 1,000 ML IV SCH ×3 (01:03→18:45)
[2016-11-30] MEDS: Metoclopramide 10mg/2ml Inj IVP SCH ×3 (05:46→21:56)
[2016-11-30 06:54] LABS: BASOPHILS % (AUTO) 0.6 % (0.0-2.0); EOSINOPHILS % (AUTO) 1.6 % (0.0-3.0); LYMPHOCYTES % (AUTO) 14.1 % (20.0-45.0); MEAN CORPUSCULAR HEMOGLOBIN 32.7 PG (27.0-31.0); MEAN CORPUSCULAR HGB CONC 31.8 G/DL (32.0-36.0); MEAN CORPUSCULAR VOLUME 103 FL (80-99); MEAN PLATELET VOLUME 7.3 FL (6.5-10.1); MONOCYTES % (AUTO) 8.1 % (1.0-10.0); NEUTROPHILS % (AUTO) 75.7 % (45.0-75.0); PLATELET COUNT 206 K/UL (150-450); RED BLOOD COUNT 2.79 M/UL (4.70-6.10); RED CELL DISTRIBUTION WIDTH 12.5 % (11.6-14.8); WHITE BLOOD COUNT 9.4 K/UL (4.8-10.8)
[2016-11-30 07:08] LABS: ALANINE AMINOTRANSFERASE 22 U/L (3-41); ALBUMIN/GLOBULIN RATIO 0.8 (1.0-2.7); ANION GAP 8 (5-15); ASPARTATE AMINO TRANSFERASE 72 U/L (5-40); CALCIUM 8.2 mg/dL (8.6-10.2); CARBON DIOXIDE 25 mEQ/L (20-30); CHLORIDE 109 mEQ/L (98-107); CREATININE 1.2 mg/dL (0.7-1.2); HEMOLYSIS 2; MAGNESIUM 1.8 mg/dL (1.7-2.5); PHOSPHORUS 3.2 mg/dL (2.5-4.8); POTASSIUM 4.8 mEQ/L (3.4-4.9); SODIUM 142 mEQ/L (135-145); TOTAL PROTEIN 5.5 g/dL (6.6-8.7)
[2016-11-30 07:15] LABS: URIC ACID 5.6 mg/dL (3.0-7.5)
[2016-11-30] MEDS: Pantoprazole Inj IVP SCH (07:48)
[2016-11-30] MEDS: Enoxaparin 40mg Inj SUBQ SCH (07:52)
[2016-11-30 08:09] LABS: ABG PCO2 47.3 mmHg (35.0-45.0)
[2016-11-30 08:10] LABS: ABG ALLEN TEST POSITIVE; ABG BASE EXCESS -1.4
--- NOTE | 2016-11-30 09:54 | General Progress Note ---
Assessment/Plan Status: stable - from renal stand point Assessment/Plan Acute renal failure- ? Undelying CKD Cr lower 2.6 to 1.9 Others: (1) Respiratory failure (2) Sepsis (3) Cardiomyopathy (4) sigmoidectomy (5) Status post exploratory laparotomy (6) COPD (chronic obstructive pulmonary disease) Plan: Slow Hydrate- Post op care- Respiratory support- Avoid Nephrotoxics- Monitor renal parameters urine studies per orders Subjective ROS Limited/Unobtainable: Yes Allergies: Coded Allergies: PENICILLINS (Verified Allergy, Unknown, 03/08/15) Objective Last 24 Hour Vital Signs Date Time Temp Pulse Resp B/P Pulse Ox O2 Delivery O2 Flow Rate FiO2 11/30/16 09:15 91 16 40 11/30/16 09:11 98 11/30/16 09:00 40 11/30/16 09:00 89 16 148/67 100 Mechanical Ventilator 40 11/30/16 08:20 99.1 11/30/16 08:00 87 11/30/16 08:00 40 11/30/16 08:00 99.1 87 18 154/71 98 Mechanical Ventilator 40 11/30/16 07:00 98 16 143/70 98 Mechanical Ventilator 40 11/30/16 06:45 98 16 40 11/30/16 06:00 97 16 147/69 100 Mechanical Ventilator 40 11/30/16 05:07 99 17 50 11/30/16 05:00 97 16 176/78 100 Mechanical Ventilator 40 11/30/16 04:00 94 11/30/16 04:00 40 11/30/16 04:00 99.2 95 16 143/70 100 Mechanical Ventilator 40 11/30/16 03:12 92 16 50 11/30/16 03:00 93 16 130/70 100 Mechanical Ventilator 40 11/30/16 02:00 93 16 109/63 100 Mechanical Ventilator 40 11/30/16 01:27 92 16 50 11/30/16 01:00 94 16 118/64 97 Mechanical Ventilator 40 11/30/16 00:00 105 11/30/16 00:00 99.1 104 16 154/82 100 Mechanical Ventilator 40 11/30/16 00:00 40 11/29/16 23:22 105 16 50 11/29/16 23:00 104 16 146/70 98 Mechanical Ventilator 40 11/29/16 22:00 97 16 121/68 98 Mechanical Ventilator 40 11/29/16 21:06 90 16 50 11/29/16 21:00 91 16 127/62 99 Mechanical Ventilator 40 11/29/16 20:07 40 11/29/16 20:00 99.3 95 16 141/65 99 Mechanical Ventilator 40 11/29/16 20:00 98 11/29/16 19:13 99 16 50 11/29/16 19:00 94 16 117/67 99 Mechanical Ventilator 40 11/29/16 18:00 97 16 137/66 99 Mechanical Ventilator 40 11/29/16 17:00 104 16 167/74 96 Mechanical Ventilator 40 11/29/16 16:51 105 16 50 11/29/16 16:00 101 11/29/16 16:00 40 11/29/16 16:00 99.3 103 16 126/70 96 Mechanical Ventilator 40 11/29/16 15:10 103 14 40 11/29/16 15:00 107 16 149/71 96 Mechanical Ventilator 40 11/29/16 14:00 103 14 142/73 98 Mechanical Ventilator 40 11/29/16 13:00 103 16 40 11/29/16 13:00 101 15 151/70 97 Mechanical Ventilator 40 11/29/16 12:00 40 11/29/16 12:00 103 11/29/16 12:00 99.2 95 16 140/66 98 Mechanical Ventilator 40 11/29/16 11:33 40 11/29/16 11:30 40 11/29/16 11:00 96 16 121/65 98 Mechanical Ventilator 50 11/29/16 10:51 93 16 50 11/29/16 10:00 94 16 124/79 98 Mechanical Ventilator 50 Intake and Output 11/29/16 11/30/16 19:00 07:00 Intake Total 775 ml 825 ml Output Total 1550 ml 775 ml Balance -775 ml 50 ml Intake IV Total 775 ml 825 ml Output Urine Total 1230 ml 565 ml Gastric Drainage Total 20 ml Drainage Total 200 ml 110 ml Other 100 ml 100 ml # Bowel Movements 5 Laboratory Tests 11/30/16 04:00: Urine Eosinophils None seen 11/30/16 05:50: White Blood Count 9.4, Red Blood Count 2.79L, Hemoglobin 9.1L, Hematocrit 28.7L , Mean Corpuscular Volume 103H, Mean Corpuscular Hemoglobin 32.7H, Mean Corpuscular Hemoglobin Concent 31.8L, Red Cell Distribution Width 12.5, Platelet Count 206, Mean Platelet Volume 7.3, Neutrophils (%) (Auto) 75.7H, Lymphocytes (%) (Auto) 14.1L, Monocytes (%) (Auto) 8.1, Eosinophils (%) (Auto) 1.6, Basophils (%) (Auto) 0.6, Sodium Level 142, Potassium Level 4.8, Chloride Level 109H, Carbon Dioxide Level 25, Anion Gap 8, Blood Urea Nitrogen 31H, Creatinine 1.2, Estimat Glomerular Filtration Rate , Glucose Level 123H, Uric Acid 5.6, Calcium Level 8.2L, Phosphorus Level 3.2, Magnesium Level 1.8, Total Bilirubin 0.3, Aspartate Amino Transf (AST/SGOT) 72H, Alanine Aminotransferase ( ALT/SGPT) 22, Alkaline Phosphatase 108, Total Creatine Kinase 4074H, Pro-B-Type Natriuretic Peptide 2653H, Total Protein 5.5L, Albumin 2.5L, Globulin 3.0, Albumin/Globulin Ratio 0.8L 11/30/16 08:00: Arterial Blood pH 7.330L, Arterial Blood Partial Pressure CO2 47.3H, Arterial Blood Partial Pressure O2 113.1H, Arterial Blood HCO3 24.5, Arterial Blood Oxygen Saturation 98.0, Arterial Blood Base Excess -1.4, David Test Positive Height (Feet): 5 Height (Inches): 11.00 Weight (Pounds): 195 General Appearance: no apparent distress Objective PE not changed LESLIE VILLEDA Nov 30, 2016 09:53
--- NOTE | 2016-11-30 10:14 | Pulmonolgy Critical Care Note ---
Critical Care - Asmt/Plan Problems: (1) Sepsis (2) Respiratory failure (3) Status post exploratory laparotomy (4) GRETEL (acute kidney injury) (5) sigmoidectomy (6) COPD (chronic obstructive pulmonary disease) (7) Cardiomyopathy (8) Diabetes Respiratory: monitor respiratory rate, adjust FIO2, CXR Cardiac: continue to monitor HR/BP Renal: F/U I&O, keep IV fluid, check electrolytes Infectious Disease: check cultures Gastrointestinal: continue feedings/current rate Endocrine: monitor blood sugar, check TSH, continue sliding scale insulin Hematologic: monitor H/H, transfuse if hgb<8.5 Neurologic: PRN Ativan, PRN Morphine, keep patient comfortable Affect: PRN ativan Prophylaxis: Protonix Notes Reviewed: election supervisor, cardio, renal Discussed with: nurses, consultants, egg caserculture manager - Objective Last 24 Hour Vital Signs Date Time Temp Pulse Resp B/P Pulse Ox O2 Delivery O2 Flow Rate FiO2 11/30/16 10:00 91 17 134/97 100 Mechanical Ventilator 40 11/30/16 09:15 91 16 40 11/30/16 09:11 98 11/30/16 09:00 40 11/30/16 09:00 89 16 148/67 100 Mechanical Ventilator 40 11/30/16 08:20 99.1 11/30/16 08:00 87 11/30/16 08:00 40 11/30/16 08:00 99.1 87 18 154/71 98 Mechanical Ventilator 40 11/30/16 07:00 98 16 143/70 98 Mechanical Ventilator 40 11/30/16 06:45 98 16 40 11/30/16 06:00 97 16 147/69 100 Mechanical Ventilator 40 11/30/16 05:07 99 17 50 11/30/16 05:00 97 16 176/78 100 Mechanical Ventilator 40 11/30/16 04:00 94 11/30/16 04:00 40 11/30/16 04:00 99.2 95 16 143/70 100 Mechanical Ventilator 40 11/30/16 03:12 92 16 50 11/30/16 03:00 93 16 130/70 100 Mechanical Ventilator 40 11/30/16 02:00 93 16 109/63 100 Mechanical Ventilator 40 11/30/16 01:27 92 16 50 11/30/16 01:00 94 16 118/64 97 Mechanical Ventilator 40 11/30/16 00:00 105 7//17 00:00 99.1 104 16 154/82 100 Mechanical Ventilator 40 11/30/16 00:00 40 11/29/16 23:22 105 16 50 11/29/16 23:00 104 16 146/70 98 Mechanical Ventilator 40 11/29/16 22:00 97 16 121/68 98 Mechanical Ventilator 40 11/29/16 21:06 90 16 50 11/29/16 21:00 91 16 127/62 99 Mechanical Ventilator 40 11/29/16 20:07 40 11/29/16 20:00 99.3 95 16 141/65 99 Mechanical Ventilator 40 11/29/16 20:00 98 11/29/16 19:13 99 16 50 11/29/16 19:00 94 16 117/67 99 Mechanical Ventilator 40 11/29/16 18:00 97 16 137/66 99 Mechanical Ventilator 40 11/29/16 17:00 104 16 167/74 96 Mechanical Ventilator 40 11/29/16 16:51 105 16 50 11/29/16 16:00 101 11/29/16 16:00 40 11/29/16 16:00 99.3 103 16 126/70 96 Mechanical Ventilator 40 11/29/16 15:10 103 14 40 11/29/16 15:00 107 16 149/71 96 Mechanical Ventilator 40 11/29/16 14:00 103 14 142/73 98 Mechanical Ventilator 40 11/29/16 13:00 103 16 40 11/29/16 13:00 101 15 151/70 97 Mechanical Ventilator 40 11/29/16 12:00 40 11/29/16 12:00 103 11/29/16 12:00 99.2 95 16 140/66 98 Mechanical Ventilator 40 11/29/16 11:33 40 11/29/16 11:30 40 11/29/16 11:00 96 16 121/65 98 Mechanical Ventilator 50 11/29/16 10:51 93 16 50 Status: awake Condition: critical HEENT: atraumatic Neck: full ROM Lungs: clear Heart: HR/BP stable, HR/BP unstable Abdomen: soft, non-tender Extremities: no C/C/E, edema Micro: Microbiology Date/Time Source Procedure Growth Status 11/28/16 11:30 Sputum Gram Stain - Final Complete 11/28/16 11:30 Sputum Sputum Culture - Final NO GROWTH AFTER 48 HOURS Complete 11/27/16 11:03 Urine,Clean Catch Urine Culture - Final NO GROWTH AFTER 48 HOURS Complete 11/27/16 13:43 Abdominal Fluid Gram Stain - Final Resulted 11/27/16 13:43 Abdominal Fluid Aerobic Culture - Preliminary NO GROWTH AFTER 48 HOURS Resulted 11/27/16 13:43 Abdominal Fluid Anaerobic Culture - Preliminary NO GROWTH AFTER 48 HOURS Resulted Critical Care - Subjective ROS Limited/Unobtainable: Yes ICU Day: 3 Intubation Day: 3 Condition: critical EKG Rhythm: Sinus Rhythm FI02: 40 Vent Support Breath Rate: 16 Vent Support Mode: IMV/SIMV Vent Tidal Volume: 600 Sputum Amount: Small PIP: 20 Fluids: d5 1/2 NS 30 cc/hour I&O: Intake and Output 11/29/16 11/30/16 19:00 07:00 Intake Total 775 ml 825 ml Output Total 1550 ml 775 ml Balance -775 ml 50 ml Intake IV Total 775 ml 825 ml Output Urine Total 1230 ml 565 ml Gastric Drainage Total 20 ml Drainage Total 200 ml 110 ml Other 100 ml 100 ml # Bowel Movements 5 Subjective: CXR: no new infiltrate, ET in good position ET-Tube: 7.5 ET Position: 22 Labs: Laboratory Tests Test 11/30/16 04:00 11/30/16 05:50 11/30/16 08:00 Urine Eosinophils None seen White Blood Count 9.4 K/UL (4.8-10.8) Red Blood Count 2.79 M/UL (4.70-6.10) L Hemoglobin 9.1 G/DL (14.2-18.0) L Hematocrit 28.7 % (42.0-52.0) L Mean Corpuscular Volume 103 FL (80-99) H Mean Corpuscular Hemoglobin 32.7 PG (27.0-31.0) H Mean Corpuscular Hemoglobin Concent 31.8 G/DL (32.0-36.0) L Red Cell Distribution Width 12.5 % (11.6-14.8) Platelet Count 206 K/UL (150-450) Mean Platelet Volume 7.3 FL (6.5-10.1) Neutrophils (%) (Auto) 75.7 % (45.0-75.0) H Lymphocytes (%) (Auto) 14.1 % (20.0-45.0) L Monocytes (%) (Auto) 8.1 % (1.0-10.0) Eosinophils (%) (Auto) 1.6 % (0.0-3.0) Basophils (%) (Auto) 0.6 % (0.0-2.0) Sodium Level 142 mEQ/L (135-145) Potassium Level 4.8 mEQ/L (3.4-4.9) Chloride Level 109 mEQ/L (98-107) H Carbon Dioxide Level 25 mEQ/L (20-30) Anion Gap 8 (5-15) Blood Urea Nitrogen 31 mg/dL (7-23) H Creatinine 1.2 mg/dL (0.7-1.2) Estimat Glomerular Filtration Rate mL/min (>60) Glucose Level 123 mg/dL (74-106) H Uric Acid 5.6 mg/dL (3.0-7.5) Calcium Level 8.2 mg/dL (8.6-10.2) L Phosphorus Level 3.2 mg/dL (2.5-4.8) Magnesium Level 1.8 mg/dL (1.7-2.5) Total Bilirubin 0.3 mg/dL (0.0-1.2) Aspartate Amino Transf (AST/SGOT) 72 U/L (5-40) H Alanine Aminotransferase (ALT/SGPT) 22 U/L (3-41) Alkaline Phosphatase 108 U/L (40-129) Total Creatine Kinase 4074 U/L (38-174) H Pro-B-Type Natriuretic Peptide 2653 pg/mL (0-125) H Total Protein 5.5 g/dL (6.6-8.7) L Albumin 2.5 g/dL (3.5-5.2) L Globulin 3.0 g/dL Albumin/Globulin Ratio 0.8 (1.0-2.7) L Arterial Blood pH 7.330 (7.350-7.450) Arterial Blood Partial Pressure CO2 47.3 mmHg (35.0-45.0) H Arterial Blood Partial Pressure O2 113.1 mmHg (75.0-100.0) H Arterial Blood HCO3 24.5 mmol/L (22.0-26.0) Arterial Blood Oxygen Saturation 98.0 % (92.0-98.0) Arterial Blood Base Excess -1.4 David Test Positive BUCKY WOLF Nov 30, 2016 10:14
--- NOTE | 2016-11-30 12:26 | General Surgery Progress Note ---
General Surgery-Progress Note Subjective Symptoms: improved Objective Last 24 Hour Vital Signs Date Time Temp Pulse Resp B/P Pulse Ox O2 Delivery O2 Flow Rate FiO2 11/30/16 11:00 98.9 101 17 154/80 100 Mechanical Ventilator 40 11/30/16 10:55 107 21 40 11/30/16 10:45 40 11/30/16 10:00 91 17 134/97 100 Mechanical Ventilator 40 11/30/16 09:15 91 16 40 11/30/16 09:11 98 11/30/16 09:00 40 11/30/16 09:00 89 16 148/67 100 Mechanical Ventilator 40 11/30/16 08:20 99.1 11/30/16 08:00 87 11/30/16 08:00 40 11/30/16 08:00 99.1 87 18 154/71 98 Mechanical Ventilator 40 11/30/16 07:00 98 16 143/70 98 Mechanical Ventilator 40 11/30/16 06:45 98 16 40 11/30/16 06:00 97 16 147/69 100 Mechanical Ventilator 40 11/30/16 05:07 99 17 50 11/30/16 05:00 97 16 176/78 100 Mechanical Ventilator 40 11/30/16 04:00 94 11/30/16 04:00 40 11/30/16 04:00 99.2 95 16 143/70 100 Mechanical Ventilator 40 11/30/16 03:12 92 16 50 11/30/16 03:00 93 16 130/70 100 Mechanical Ventilator 40 11/30/16 02:00 93 16 109/63 100 Mechanical Ventilator 40 11/30/16 01:27 92 16 50 11/30/16 01:00 94 16 118/64 97 Mechanical Ventilator 40 11/30/16 00:00 105 11/30/16 00:00 99.1 104 16 154/82 100 Mechanical Ventilator 40 11/30/16 00:00 40 11/29/16 23:22 105 16 50 11/29/16 23:00 104 16 146/70 98 Mechanical Ventilator 40 11/29/16 22:00 97 16 121/68 98 Mechanical Ventilator 40 11/29/16 21:06 90 16 50 11/29/16 21:00 91 16 127/62 99 Mechanical Ventilator 40 11/29/16 20:07 40 11/29/16 20:00 99.3 95 16 141/65 99 Mechanical Ventilator 40 11/29/16 20:00 98 11/29/16 19:13 99 16 50 11/29/16 19:00 94 16 117/67 99 Mechanical Ventilator 40 11/29/16 18:00 97 16 137/66 99 Mechanical Ventilator 40 11/29/16 17:00 104 16 167/74 96 Mechanical Ventilator 40 11/29/16 16:51 105 16 50 11/29/16 16:00 101 11/29/16 16:00 40 11/29/16 16:00 99.3 103 16 126/70 96 Mechanical Ventilator 40 11/29/16 15:10 103 14 40 11/29/16 15:00 107 16 149/71 96 Mechanical Ventilator 40 11/29/16 14:00 103 14 142/73 98 Mechanical Ventilator 40 11/29/16 13:00 103 16 40 11/29/16 13:00 101 15 151/70 97 Mechanical Ventilator 40 I&O Intake and Output 11/29/16 11/30/16 19:00 07:00 Intake Total 775 ml 825 ml Output Total 1550 ml 775 ml Balance -775 ml 50 ml Intake IV Total 775 ml 825 ml Output Urine Total 1230 ml 565 ml Gastric Drainage Total 20 ml Drainage Total 200 ml 110 ml Other 100 ml 100 ml # Bowel Movements 5 Dressing: dry Drains: misty Respiratory: clear Abdomen: soft, tenderness, absent bowel sounds Extremities: no tenderness Laboratory Tests Test 11/30/16 04:00 11/30/16 05:50 11/30/16 08:00 Urine Eosinophils None seen White Blood Count 9.4 K/UL (4.8-10.8) Red Blood Count 2.79 M/UL (4.70-6.10) L Hemoglobin 9.1 G/DL (14.2-18.0) L Hematocrit 28.7 % (42.0-52.0) L Mean Corpuscular Volume 103 FL (80-99) H Mean Corpuscular Hemoglobin 32.7 PG (27.0-31.0) H Mean Corpuscular Hemoglobin Concent 31.8 G/DL (32.0-36.0) L Red Cell Distribution Width 12.5 % (11.6-14.8) Platelet Count 206 K/UL (150-450) Mean Platelet Volume 7.3 FL (6.5-10.1) Neutrophils (%) (Auto) 75.7 % (45.0-75.0) H Lymphocytes (%) (Auto) 14.1 % (20.0-45.0) L Monocytes (%) (Auto) 8.1 % (1.0-10.0) Eosinophils (%) (Auto) 1.6 % (0.0-3.0) Basophils (%) (Auto) 0.6 % (0.0-2.0) Sodium Level 142 mEQ/L (135-145) Potassium Level 4.8 mEQ/L (3.4-4.9) Chloride Level 109 mEQ/L (98-107) H Carbon Dioxide Level 25 mEQ/L (20-30) Anion Gap 8 (5-15) Blood Urea Nitrogen 31 mg/dL (7-23) H Creatinine 1.2 mg/dL (0.7-1.2) Estimat Glomerular Filtration Rate mL/min (>60) Glucose Level 123 mg/dL (74-106) H Uric Acid 5.6 mg/dL (3.0-7.5) Calcium Level 8.2 mg/dL (8.6-10.2) L Phosphorus Level 3.2 mg/dL (2.5-4.8) Magnesium Level 1.8 mg/dL (1.7-2.5) Total Bilirubin 0.3 mg/dL (0.0-1.2) Aspartate Amino Transf (AST/SGOT) 72 U/L (5-40) H Alanine Aminotransferase (ALT/SGPT) 22 U/L (3-41) Alkaline Phosphatase 108 U/L (40-129) Total Creatine Kinase 4074 U/L (38-174) H Pro-B-Type Natriuretic Peptide 2653 pg/mL (0-125) H Total Protein 5.5 g/dL (6.6-8.7) L Albumin 2.5 g/dL (3.5-5.2) L Globulin 3.0 g/dL Albumin/Globulin Ratio 0.8 (1.0-2.7) L Arterial Blood pH 7.330 (7.350-7.450) Arterial Blood Partial Pressure CO2 47.3 mmHg (35.0-45.0) H Arterial Blood Partial Pressure O2 113.1 mmHg (75.0-100.0) H Arterial Blood HCO3 24.5 mmol/L (22.0-26.0) Arterial Blood Oxygen Saturation 98.0 % (92.0-98.0) Arterial Blood Base Excess -1.4 David Test Positive Assessment Post-op Diagnosis Ischemia of sigmoid colon Plan Additional Comments continue as before WILMA BANUELOS Nov 30, 2016 12:26
--- NOTE | 2016-11-30 12:45 | Diagnostic Imaging Report ---
Indication: Dyspnea Comparison: 11/28/16 A single view chest radiograph was obtained. Findings: Basilar atelectasis demonstrated. Cardiomegaly is present. Stenting of the aortic arch noted. Sternotomy again noted. Endotracheal tube and nasogastric tube remains in good position. Impression: No significant change from the last exam. Basilar atelectasis
[2016-11-30 15:09] LABS: ABG ALLEN TEST POSITIVE; ABG BASE EXCESS -1.9; ABG PCO2 47.3 mmHg (35.0-45.0)
[2016-11-30] MEDS ORDERED: D5NS 1000ml IV ONE (17:48)
[2016-11-30] MEDS ORDERED: D5 1/2NS 1000ml IV ONE (17:48)
[2016-11-30] MEDS ORDERED: LR 1000ml ONE (17:48)
--- NOTE | 2016-11-30 20:39 | Infectious Diseases Prog Note ---
Assessment/Plan Assessment/Plan A: ASSESSMENT: The patient is a 70-year-old male with Sepsis, improving Fever, improving Leukocytosis, SP Ischemic colitis SP sigmoidectomy and colostomy SP self extubation 11/30 GRETEL improving Seizure disorder Atrial fibrillation Anemia Hypertension Asthma BPH Diabetes Anemia PLAN: continue the patient on IV ertapenem d# 4 / -7 Monitor CBC. Monitor BMP. will follow GenSx recs Subjective Allergies: Coded Allergies: PENICILLINS (Verified Allergy, Unknown, 03/08/15) Subjective self extubated today Objective Vital Signs Last 24 Hour Vital Signs Date Time Temp Pulse Resp B/P Pulse Ox O2 Delivery O2 Flow Rate FiO2 11/30/16 20:00 108 11/30/16 19:30 96 Venturi Mask 8.0 40 11/30/16 19:30 106 20 Venturi Mask 8.0 40 11/30/16 19:30 Venturi Mask 8.0 40 11/30/16 19:00 109 18 135/74 99 Venturi Mask 8.0 40 11/30/16 18:30 99.7 110 17 141/75 98 Venturi Mask 8.0 40 11/30/16 18:00 108 17 141/75 96 Venturi Mask 8.0 40 11/30/16 17:09 98.9 11/30/16 17:00 110 20 152/85 98 Venturi Mask 8.0 40 11/30/16 16:00 107 11/30/16 16:00 105 20 154/73 98 Venturi Mask 8.0 40 11/30/16 15:00 98.9 110 18 141/72 97 Venturi Mask 8.0 40 11/30/16 14:00 105 18 141/70 100 Venturi Mask 8.0 40 11/30/16 13:00 102 16 155/70 100 Venturi Mask 8.0 40 11/30/16 12:59 Venturi Mask 8.0 40 11/30/16 12:59 100 Venturi Mask 8.0 40 11/30/16 12:57 107 21 Venturi Mask 8.0 40 11/30/16 12:44 Non-Rebreather 100 11/30/16 12:00 112 18 141/82 100 Mechanical Ventilator 40 11/30/16 12:00 102 11/30/16 11:00 98.9 101 17 154/80 100 Mechanical Ventilator 40 11/30/16 10:55 107 21 40 11/30/16 10:45 40 11/30/16 10:00 91 17 134/97 100 Mechanical Ventilator 40 11/30/16 09:15 91 16 40 11/30/16 09:11 98 11/30/16 09:00 40 11/30/16 09:00 89 16 148/67 100 Mechanical Ventilator 40 11/30/16 08:00 87 11/30/16 08:00 40 11/30/16 08:00 99.1 87 18 154/71 98 Mechanical Ventilator 40 11/30/16 07:00 98 16 143/70 98 Mechanical Ventilator 40 11/30/16 06:45 98 16 40 11/30/16 06:00 97 16 147/69 100 Mechanical Ventilator 40 11/30/16 05:07 99 17 50 11/30/16 05:00 97 16 176/78 100 Mechanical Ventilator 40 11/30/16 04:00 94 11/30/16 04:00 40 11/30/16 04:00 99.2 95 16 143/70 100 Mechanical Ventilator 40 11/30/16 03:12 92 16 50 11/30/16 03:00 93 16 130/70 100 Mechanical Ventilator 40 11/30/16 02:00 93 16 109/63 100 Mechanical Ventilator 40 11/30/16 01:27 92 16 50 11/30/16 01:00 94 16 118/64 97 Mechanical Ventilator 40 11/30/16 00:00 105 11/30/16 00:00 99.1 104 16 154/82 100 Mechanical Ventilator 40 11/30/16 00:00 40 11/29/16 23:22 105 16 50 11/29/16 23:00 104 16 146/70 98 Mechanical Ventilator 40 11/29/16 22:00 97 16 121/68 98 Mechanical Ventilator 40 11/29/16 21:06 90 16 50 11/29/16 21:00 91 16 127/62 99 Mechanical Ventilator 40 Height (Feet): 5 Height (Inches): 11.00 Weight (Pounds): 195 HEENT: atraumatic Respiratory/Chest: no respiratory distress Cardiovascular: regular rhythm Abdomen: soft, non tender - colostomy + Extremities: no clubbing Microbiology Date/Time Source Procedure Growth Status 11/28/16 11:30 Sputum Gram Stain - Final Complete 11/28/16 11:30 Sputum Sputum Culture - Final NO GROWTH AFTER 48 HOURS Complete Laboratory Tests Test 11/30/16 04:00 11/30/16 05:50 11/30/16 08:00 11/30/16 15:05 Urine Eosinophils None seen White Blood Count 9.4 K/UL (4.8-10.8) Red Blood Count 2.79 M/UL (4.70-6.10) L Hemoglobin 9.1 G/DL (14.2-18.0) L Hematocrit 28.7 % (42.0-52.0) L Mean Corpuscular Volume 103 FL (80-99) H Mean Corpuscular Hemoglobin 32.7 PG (27.0-31.0) H Mean Corpuscular Hemoglobin Concent 31.8 G/DL (32.0-36.0) L Red Cell Distribution Width 12.5 % (11.6-14.8) Platelet Count 206 K/UL (150-450) Mean Platelet Volume 7.3 FL (6.5-10.1) Neutrophils (%) (Auto) 75.7 % (45.0-75.0) H Lymphocytes (%) (Auto) 14.1 % (20.0-45.0) L Monocytes (%) (Auto) 8.1 % (1.0-10.0) Eosinophils (%) (Auto) 1.6 % (0.0-3.0) Basophils (%) (Auto) 0.6 % (0.0-2.0) Sodium Level 142 mEQ/L (135-145) Potassium Level 4.8 mEQ/L (3.4-4.9) Chloride Level 109 mEQ/L (98-107) H Carbon Dioxide Level 25 mEQ/L (20-30) Anion Gap 8 (5-15) Blood Urea Nitrogen 31 mg/dL (7-23) H Creatinine 1.2 mg/dL (0.7-1.2) Estimat Glomerular Filtration Rate mL/min (>60) Glucose Level 123 mg/dL (74-106) H Uric Acid 5.6 mg/dL (3.0-7.5) Calcium Level 8.2 mg/dL (8.6-10.2) L Phosphorus Level 3.2 mg/dL (2.5-4.8) Magnesium Level 1.8 mg/dL (1.7-2.5) Total Bilirubin 0.3 mg/dL (0.0-1.2) Aspartate Amino Transf (AST/SGOT) 72 U/L (5-40) H Alanine Aminotransferase (ALT/SGPT) 22 U/L (3-41) Alkaline Phosphatase 108 U/L (40-129) Total Creatine Kinase 4074 U/L (38-174) H Pro-B-Type Natriuretic Peptide 2653 pg/mL (0-125) H Total Protein 5.5 g/dL (6.6-8.7) L Albumin 2.5 g/dL (3.5-5.2) L Globulin 3.0 g/dL Albumin/Globulin Ratio 0.8 (1.0-2.7) L Arterial Blood pH 7.330 (7.350-7.450) 7.328 (7.350-7.450) Arterial Blood Partial Pressure CO2 47.3 mmHg (35.0-45.0) H 47.3 mmHg (35.0-45.0) H Arterial Blood Partial Pressure O2 113.1 mmHg (75.0-100.0) H 88.9 mmHg (75.0-100.0) Arterial Blood HCO3 24.5 mmol/L (22.0-26.0) 24.3 mmol/L (22.0-26.0) Arterial Blood Oxygen Saturation 98.0 % (92.0-98.0) 96.0 % (92.0-98.0) Arterial Blood Base Excess -1.4 -1.9 David Test Positive Positive Current Medications Medications (Trade) Dose Ordered Sig/Ady Route PRN Reason Start Time Stop Time Status Last Admin Dose Admin Acetaminophen (Tylenol) 650 mg Q4H PRN ORAL fever 11/27/16 17:00 12/27/16 16:59 11/30/16 18:46 Acetaminophen (Tylenol) 650 mg Q4H PRN RECTAL Mild Pain (Pain Scale 1-3) 11/27/16 15:30 12/27/16 15:29 11/29/16 03:44 Albuterol/ Ipratropium 3 ml 3 ml EVERY 4 HOURS PRN HHN Shortness of Breath 11/27/16 21:00 12/02/16 20:59 Dextrose/Sodium Chloride (D5ns) 1,000 ml @ 30 mls/hr Q24H IV 11/30/16 10:45 12/30/16 10:44 11/30/16 18:45 Enoxaparin Sodium (Lovenox) 40 mg DAILY SUBQ 11/28/16 09:00 12/28/16 08:59 11/30/16 07:52 Ertapenem/Sodium Chloride (INVanz/Sodium Chloride) 55 ml @ 110 mls/hr Q24H IV 11/27/16 21:00 12/02/16 20:59 11/29/16 20:38 Hydromorphone HCl (Dilaudid) 2 mg EVERY 4 HOURS IVP 11/27/16 17:00 12/04/16 16:59 11/30/16 16:39 Hydromorphone HCl 1 mg 1 mg Q4H PRN IVP MILD-MOD PAIN 11/27/16 18:30 12/04/16 18:29 Lorazepam 2 mg 2 mg EVERY 2 HOURS PRN IV For Anxiety 11/27/16 17:00 12/04/16 16:59 11/29/16 23:33 Metoclopramide HCl (Reglan) 10 mg EVERY 8 HOURS IVP 11/27/16 22:00 12/27/16 21:59 11/30/16 13:06 Norepinephrine Bitartrate/ Dextrose (Levophed/D5W) 254 ml @ 0 mls/hr Q24H IV 11/27/16 20:00 12/27/16 19:59 11/28/16 21:44 Ondansetron HCl (Zofran) 4 mg Q6H PRN IVP Nausea & Vomiting 11/27/16 17:00 12/27/16 16:59 Pantoprazole (Protonix) 40 mg DAILY IVP 11/27/16 20:00 12/27/16 19:59 11/30/16 07:48 Polyethylene Glycol (Miralax) 17 gm DAILYPRN PRN ORAL Constipation 11/27/16 17:00 12/27/16 16:59 MADIOSN FLYNN M.D. Nov 30, 2016 20:39
[2016-11-30] MEDS: Ertapenem 1 GM in NS 55 ML IV SCH (20:41)
[2016-11-30] MEDS ORDERED: HYDROmorphone 1mg/ml Carpuject IVP PRN (22:00)
[2016-12-01] VITALS (23 sets, daily range): BP systolic 134–168; BP diastolic 67–94
[2016-12-01 05:05] LABS: BASOPHILS % (AUTO) 0.7 % (0.0-2.0); EOSINOPHILS % (AUTO) 1.4 % (0.0-3.0); LYMPHOCYTES % (AUTO) 12.5 % (20.0-45.0); MEAN CORPUSCULAR HEMOGLOBIN 32.6 PG (27.0-31.0); MEAN CORPUSCULAR HGB CONC 31.6 G/DL (32.0-36.0); MEAN CORPUSCULAR VOLUME 103 FL (80-99); MEAN PLATELET VOLUME 6.9 FL (6.5-10.1); MONOCYTES % (AUTO) 9.8 % (1.0-10.0); NEUTROPHILS % (AUTO) 75.7 % (45.0-75.0); PLATELET COUNT 253 K/UL (150-450); RED BLOOD COUNT 3.09 M/UL (4.70-6.10); WHITE BLOOD COUNT 9.6 K/UL (4.8-10.8)
[2016-12-01 05:33] LABS: ALANINE AMINOTRANSFERASE 25 U/L (3-41); ALBUMIN/GLOBULIN RATIO 0.6 (1.0-2.7); ANION GAP 15 (5-15); ASPARTATE AMINO TRANSFERASE 87 U/L (5-40); CALCIUM 8.6 mg/dL (8.6-10.2); CARBON DIOXIDE 23 mEQ/L (20-30); CHLORIDE 107 mEQ/L (98-107); HEMOLYSIS 0; LIPASE 70 U/L (< 60); POTASSIUM 4.3 mEQ/L (3.4-4.9); SODIUM 145 mEQ/L (135-145); TOTAL PROTEIN 6.4 g/dL (6.6-8.7)
[2016-12-01] MEDS: Metoclopramide 10mg/2ml Inj IVP SCH ×3 (05:47→22:09)
[2016-12-01] MEDS: Pantoprazole Inj IVP SCH (08:51)
[2016-12-01] MEDS: Enoxaparin 40mg Inj SUBQ SCH (08:52)
--- NOTE | 2016-12-01 09:26 | General Progress Note ---
Assessment/Plan Status: stable - from renal stand point Assessment/Plan Acute renal failure- ? Undelying CKD Cr lower 2.6 to 1.9 Others: (1) Respiratory failure, now self extubated (2) Sepsis (3) Cardiomyopathy (4) sigmoidectomy (5) Status post exploratory laparotomy (6) COPD (chronic obstructive pulmonary disease) Plan: Slow Hydrate- Post op care- Post extubation care Respiratory support- Avoid Nephrotoxics- Monitor renal parameters, optimize pulm and cardiac status urine studies per orders Subjective ROS Limited/Unobtainable: No Constitutional: Reports: malaise Allergies: Coded Allergies: PENICILLINS (Verified Allergy, Unknown, 03/08/15) Objective Last 24 Hour Vital Signs Date Time Temp Pulse Resp B/P Pulse Ox O2 Delivery O2 Flow Rate FiO2 12/01/16 09:00 114 22 144/67 97 Nasal Cannula 3.0 12/01/16 08:00 114 12/01/16 08:00 99.5 116 18 156/78 98 Nasal Cannula 3.0 12/01/16 07:00 114 22 151/71 97 Nasal Cannula 3.0 12/01/16 06:00 112 23 158/77 97 Venturi Mask 40 12/01/16 05:00 110 21 134/79 99 Venturi Mask 40 12/01/16 05:00 112 22 134/79 98 Venturi Mask 40 12/01/16 04:00 111 12/01/16 04:00 99.8 111 20 164/74 98 Venturi Mask 40 12/01/16 04:00 99.6 111 20 134/79 99 Venturi Mask 40 12/01/16 03:00 111 21 168/67 99 Venturi Mask 40 12/01/16 02:04 108 16 148/80 98 Venturi Mask 40 12/01/16 01:00 108 15 152/89 96 Venturi Mask 40 12/01/16 00:00 112 12/01/16 00:00 100.0 112 18 135/80 99 Venturi Mask 40 11/30/16 23:00 112 15 131/70 98 Venturi Mask 40 11/30/16 22:00 116 17 131/70 96 Venturi Mask 40 11/30/16 21:00 109 18 164/76 99 Venturi Mask 8.0 40 11/30/16 20:00 108 11/30/16 20:00 100.0 111 19 148/71 98 Venturi Mask 8.0 40 11/30/16 20:00 148/71 11/30/16 19:45 100.0 11/30/16 19:30 96 Venturi Mask 8.0 40 11/30/16 19:30 106 20 Venturi Mask 8.0 40 11/30/16 19:30 Venturi Mask 8.0 40 11/30/16 19:00 109 18 135/74 99 Venturi Mask 8.0 40 11/30/16 18:30 99.7 110 17 141/75 98 Venturi Mask 8.0 40 11/30/16 18:00 108 17 141/75 96 Venturi Mask 8.0 40 11/30/16 17:09 98.9 11/30/16 17:00 110 20 152/85 98 Venturi Mask 8.0 40 11/30/16 16:00 107 11/30/16 16:00 105 20 154/73 98 Venturi Mask 8.0 40 11/30/16 15:00 98.9 110 18 141/72 97 Venturi Mask 8.0 40 11/30/16 14:00 105 18 141/70 100 Venturi Mask 8.0 40 11/30/16 13:00 102 16 155/70 100 Venturi Mask 8.0 40 11/30/16 12:59 Venturi Mask 8.0 40 11/30/16 12:59 100 Venturi Mask 8.0 40 11/30/16 12:57 107 21 Venturi Mask 8.0 40 11/30/16 12:44 Non-Rebreather 100 11/30/16 12:00 112 18 141/82 100 Mechanical Ventilator 40 11/30/16 12:00 102 11/30/16 11:00 98.9 101 17 154/80 100 Mechanical Ventilator 40 11/30/16 10:55 107 21 40 11/30/16 10:45 40 11/30/16 10:00 91 17 134/97 100 Mechanical Ventilator 40 Intake and Output 11/30/16 12/01/16 19:00 07:00 Intake Total 540 ml 415 ml Output Total 681 ml 1630 ml Balance -141 ml -1215 ml Intake Oral 0 ml IV Total 540 ml 415 ml Output Urine Total 331 ml 1430 ml Stool Total 0 ml Gastric Drainage Total 210 ml Drainage Total 140 ml 200 ml # Bowel Movements 2 Laboratory Tests 11/30/16 15:05: Arterial Blood pH 7.328L, Arterial Blood Partial Pressure CO2 47.3H, Arterial Blood Partial Pressure O2 88.9, Arterial Blood HCO3 24.3, Arterial Blood Oxygen Saturation 96.0, Arterial Blood Base Excess -1.9, David Test Positive 12/01/16 03:50: White Blood Count 9.6, Red Blood Count 3.09L, Hemoglobin 10.0L, Hematocrit 31.8L , Mean Corpuscular Volume 103H, Mean Corpuscular Hemoglobin 32.6H, Mean Corpuscular Hemoglobin Concent 31.6L, Red Cell Distribution Width 12.0, Platelet Count 253, Mean Platelet Volume 6.9, Neutrophils (%) (Auto) 75.7H, Lymphocytes (%) (Auto) 12.5L, Monocytes (%) (Auto) 9.8, Eosinophils (%) (Auto) 1.4, Basophils (%) (Auto) 0.7, Sodium Level 145, Potassium Level 4.3, Chloride Level 107, Carbon Dioxide Level 23, Anion Gap 15, Blood Urea Nitrogen 22, Creatinine 1.0, Estimat Glomerular Filtration Rate , Glucose Level 113H, Calcium Level 8.6, Total Bilirubin 0.4, Aspartate Amino Transf (AST/SGOT) 87H, Alanine Aminotransferase (ALT/SGPT) 25, Alkaline Phosphatase 123, Total Protein 6.4L, Albumin 2.6L, Globulin 3.8, Albumin/Globulin Ratio 0.6L, Lipase 70H 12/01/16 06:30: Urine Eosinophils None seen Height (Feet): 5 Height (Inches): 11.00 Weight (Pounds): 196 General Appearance: other - self extubated yesterday Cardiovascular: tachycardia Respiratory/Chest: decreased breath sounds Abdomen: distended Objective PE not changed LESLIE VILLEDA Dec 01, 2016 09:26
--- NOTE | 2016-12-01 11:42 | Pulmonolgy Critical Care Note ---
Critical Care - Asmt/Plan Problems: (1) Sepsis (2) Respiratory failure (3) Status post exploratory laparotomy (4) GRETEL (acute kidney injury) (5) sigmoidectomy (6) COPD (chronic obstructive pulmonary disease) (7) Cardiomyopathy (8) Diabetes Respiratory: monitor respiratory rate, adjust FIO2, other Cardiac: continue to monitor HR/BP Renal: F/U I&O, keep IV fluid Infectious Disease: check cultures, continue antibiotics Gastrointestinal: continue feedings/current rate Endocrine: monitor blood sugar, check TSH Hematologic: monitor H/H Neurologic: PRN Ativan Affect: PRN ativan Prophylaxis: Protonix Notes Reviewed: garment folder, cardio, renal Discussed with: nurses, consultants, sample case portersocial work case manager - Objective Last 24 Hour Vital Signs Date Time Temp Pulse Resp B/P Pulse Ox O2 Delivery O2 Flow Rate FiO2 12/01/16 11:00 110 20 151/85 98 Nasal Cannula 3.0 12/01/16 10:00 109 20 153/72 98 Nasal Cannula 3.0 12/01/16 09:20 99.5 12/01/16 09:00 114 22 144/67 97 Nasal Cannula 3.0 12/01/16 08:00 114 12/01/16 08:00 99.5 116 18 156/78 98 Nasal Cannula 3.0 12/01/16 07:00 114 22 151/71 97 Nasal Cannula 3.0 12/01/16 06:00 112 23 158/77 97 Venturi Mask 40 12/01/16 05:00 110 21 134/79 99 Venturi Mask 40 12/01/16 05:00 112 22 134/79 98 Venturi Mask 40 12/01/16 04:00 111 12/01/16 04:00 99.8 111 20 164/74 98 Venturi Mask 40 12/01/16 04:00 99.6 111 20 134/79 99 Venturi Mask 40 12/01/16 03:00 111 21 168/67 99 Venturi Mask 40 12/01/16 02:04 108 16 148/80 98 Venturi Mask 40 12/01/16 01:00 108 15 152/89 96 Venturi Mask 40 12/01/16 00:00 112 12/01/16 00:00 100.0 112 18 135/80 99 Venturi Mask 40 11/30/16 23:00 112 15 131/70 98 Venturi Mask 40 11/30/16 22:00 116 17 131/70 96 Venturi Mask 40 11/30/16 21:00 109 18 164/76 99 Venturi Mask 8.0 40 11/30/16 20:00 108 11/30/16 20:00 100.0 111 19 148/71 98 Venturi Mask 8.0 40 11/30/16 20:00 148/71 11/30/16 19:45 100.0 11/30/16 19:30 96 Venturi Mask 8.0 40 11/30/16 19:30 106 20 Venturi Mask 8.0 40 11/30/16 19:30 Venturi Mask 8.0 40 11/30/16 19:00 109 18 135/74 99 Venturi Mask 8.0 40 11/30/16 18:30 99.7 110 17 141/75 98 Venturi Mask 8.0 40 11/30/16 18:00 108 17 141/75 96 Venturi Mask 8.0 40 11/30/16 17:09 98.9 11/30/16 17:00 110 20 152/85 98 Venturi Mask 8.0 40 11/30/16 16:00 107 11/30/16 16:00 105 20 154/73 98 Venturi Mask 8.0 40 11/30/16 15:00 98.9 110 18 141/72 97 Venturi Mask 8.0 40 11/30/16 14:00 105 18 141/70 100 Venturi Mask 8.0 40 11/30/16 13:00 102 16 155/70 100 Venturi Mask 8.0 40 11/30/16 12:59 Venturi Mask 8.0 40 11/30/16 12:59 100 Venturi Mask 8.0 40 11/30/16 12:57 107 21 Venturi Mask 8.0 40 11/30/16 12:44 Non-Rebreather 100 11/30/16 12:00 112 18 141/82 100 Mechanical Ventilator 40 11/30/16 12:00 102 Status: awake Condition: critical HEENT: atraumatic Lungs: chest wall tender Heart: HR/BP stable, HR/BP unstable, regular Abdomen: soft, active bowel sounds, feeding tube Extremities: no C/C/E, edema Critical Care - Subjective Condition: critical EKG Rhythm: Sinus Rhythm FI02: 40 Vent Support Breath Rate: 14 Vent Support Mode: IMV/SIMV Vent Tidal Volume: 600 Sputum Amount: None PIP: 1 Drips: d5 NS 30 cc/hour I&O: Intake and Output 11/30/16 12/01/16 18:59 06:59 Intake Total 585 ml 415 ml Output Total 681 ml 1580 ml Balance -96 ml -1165 ml Intake Oral 0 ml IV Total 585 ml 415 ml Output Urine Total 331 ml 1380 ml Stool Total 0 ml Gastric Drainage Total 210 ml Drainage Total 140 ml 200 ml # Bowel Movements 2 Subjective: CXR: no change ET-Tube: 7.5 ET Position: 22 Labs: Laboratory Tests Test 11/30/16 15:05 12/01/16 03:50 12/01/16 06:30 Arterial Blood pH 7.328 (7.350-7.450) Arterial Blood Partial Pressure CO2 47.3 mmHg (35.0-45.0) H Arterial Blood Partial Pressure O2 88.9 mmHg (75.0-100.0) Arterial Blood HCO3 24.3 mmol/L (22.0-26.0) Arterial Blood Oxygen Saturation 96.0 % (92.0-98.0) Arterial Blood Base Excess -1.9 David Test Positive White Blood Count 9.6 K/UL (4.8-10.8) Red Blood Count 3.09 M/UL (4.70-6.10) L Hemoglobin 10.0 G/DL (14.2-18.0) L Hematocrit 31.8 % (42.0-52.0) L Mean Corpuscular Volume 103 FL (80-99) H Mean Corpuscular Hemoglobin 32.6 PG (27.0-31.0) H Mean Corpuscular Hemoglobin Concent 31.6 G/DL (32.0-36.0) L Red Cell Distribution Width 12.0 % (11.6-14.8) Platelet Count 253 K/UL (150-450) Mean Platelet Volume 6.9 FL (6.5-10.1) Neutrophils (%) (Auto) 75.7 % (45.0-75.0) H Lymphocytes (%) (Auto) 12.5 % (20.0-45.0) L Monocytes (%) (Auto) 9.8 % (1.0-10.0) Eosinophils (%) (Auto) 1.4 % (0.0-3.0) Basophils (%) (Auto) 0.7 % (0.0-2.0) Sodium Level 145 mEQ/L (135-145) Potassium Level 4.3 mEQ/L (3.4-4.9) Chloride Level 107 mEQ/L (98-107) Carbon Dioxide Level 23 mEQ/L (20-30) Anion Gap 15 (5-15) Blood Urea Nitrogen 22 mg/dL (7-23) Creatinine 1.0 mg/dL (0.7-1.2) Estimat Glomerular Filtration Rate mL/min (>60) Glucose Level 113 mg/dL (74-106) H Calcium Level 8.6 mg/dL (8.6-10.2) Total Bilirubin 0.4 mg/dL (0.0-1.2) Aspartate Amino Transf (AST/SGOT) 87 U/L (5-40) H Alanine Aminotransferase (ALT/SGPT) 25 U/L (3-41) Alkaline Phosphatase 123 U/L (40-129) Total Protein 6.4 g/dL (6.6-8.7) L Albumin 2.6 g/dL (3.5-5.2) L Globulin 3.8 g/dL Albumin/Globulin Ratio 0.6 (1.0-2.7) L Lipase 70 U/L (< 60) H Urine Eosinophils None seen BUCKY WOLF Dec 01, 2016 11:42
--- NOTE | 2016-12-01 11:43 | Infectious Diseases Prog Note ---
Assessment/Plan Assessment/Plan ASSESSMENT: The patient is a 70-year-old male on IV ertapenem 1gm q24hr day 5 for intrabadominal sepsis, with negative blood cx from 11/28, negative peritoneal operative fluid from 11/27. Sepsis, improving Fever, improving Leukocytosis, SP Ischemic colitis SP sigmoidectomy and colostomy on 11/27 SP self extubation 11/30 GRETEL improving Seizure disorder Atrial fibrillation Anemia Hypertension Asthma BPH Diabetes Anemia PLAN: continue the patient on IV ertapenem d# 5 / . final day of therapy 12/03/16. Monitor CBC. Monitor BMP. will follow GenSx recs Subjective Allergies: Coded Allergies: PENICILLINS (Verified Allergy, Unknown, 03/08/15) Subjective afebrile o/n with Tmax 99.5F NGT clamped. formed stool passing from below. Objective Vital Signs Last 24 Hour Vital Signs Date Time Temp Pulse Resp B/P Pulse Ox O2 Delivery O2 Flow Rate FiO2 12/01/16 11:00 110 20 151/85 98 Nasal Cannula 3.0 12/01/16 10:00 109 20 153/72 98 Nasal Cannula 3.0 12/01/16 09:20 99.5 12/01/16 09:00 114 22 144/67 97 Nasal Cannula 3.0 12/01/16 08:00 114 12/01/16 08:00 99.5 116 18 156/78 98 Nasal Cannula 3.0 12/01/16 07:00 114 22 151/71 97 Nasal Cannula 3.0 12/01/16 06:00 112 23 158/77 97 Venturi Mask 40 12/01/16 05:00 110 21 134/79 99 Venturi Mask 40 12/01/16 05:00 112 22 134/79 98 Venturi Mask 40 12/01/16 04:00 111 12/01/16 04:00 99.8 111 20 164/74 98 Venturi Mask 40 12/01/16 04:00 99.6 111 20 134/79 99 Venturi Mask 40 12/01/16 03:00 111 21 168/67 99 Venturi Mask 40 12/01/16 02:04 108 16 148/80 98 Venturi Mask 40 12/01/16 01:00 108 15 152/89 96 Venturi Mask 40 12/01/16 00:00 112 12/01/16 00:00 100.0 112 18 135/80 99 Venturi Mask 40 11/30/16 23:00 112 15 131/70 98 Venturi Mask 40 11/30/16 22:00 116 17 131/70 96 Venturi Mask 40 11/30/16 21:00 109 18 164/76 99 Venturi Mask 8.0 40 11/30/16 20:00 108 11/30/16 20:00 100.0 111 19 148/71 98 Venturi Mask 8.0 40 11/30/16 20:00 148/71 11/30/16 19:45 100.0 11/30/16 19:30 96 Venturi Mask 8.0 40 11/30/16 19:30 106 20 Venturi Mask 8.0 40 11/30/16 19:30 Venturi Mask 8.0 40 11/30/16 19:00 109 18 135/74 99 Venturi Mask 8.0 40 11/30/16 18:30 99.7 110 17 141/75 98 Venturi Mask 8.0 40 11/30/16 18:00 108 17 141/75 96 Venturi Mask 8.0 40 11/30/16 17:09 98.9 11/30/16 17:00 110 20 152/85 98 Venturi Mask 8.0 40 11/30/16 16:00 107 11/30/16 16:00 105 20 154/73 98 Venturi Mask 8.0 40 11/30/16 15:00 98.9 110 18 141/72 97 Venturi Mask 8.0 40 11/30/16 14:00 105 18 141/70 100 Venturi Mask 8.0 40 11/30/16 13:00 102 16 155/70 100 Venturi Mask 8.0 40 11/30/16 12:59 Venturi Mask 8.0 40 11/30/16 12:59 100 Venturi Mask 8.0 40 11/30/16 12:57 107 21 Venturi Mask 8.0 40 11/30/16 12:44 Non-Rebreather 100 11/30/16 12:00 112 18 141/82 100 Mechanical Ventilator 40 11/30/16 12:00 102 Height (Feet): 5 Height (Inches): 11.00 Weight (Pounds): 196 General Appearance: no acute distress Objective NGT in place clamped. scant bloody oral suction. PIV c/'d/i. tachycardic with RIP. abd with midline large bulky dressing in place, ostomy in place. abd not distended, not tense. Laboratory Tests Test 11/30/16 15:05 12/01/16 03:50 12/01/16 06:30 Arterial Blood pH 7.328 (7.350-7.450) Arterial Blood Partial Pressure CO2 47.3 mmHg (35.0-45.0) H Arterial Blood Partial Pressure O2 88.9 mmHg (75.0-100.0) Arterial Blood HCO3 24.3 mmol/L (22.0-26.0) Arterial Blood Oxygen Saturation 96.0 % (92.0-98.0) Arterial Blood Base Excess -1.9 David Test Positive White Blood Count 9.6 K/UL (4.8-10.8) Red Blood Count 3.09 M/UL (4.70-6.10) L Hemoglobin 10.0 G/DL (14.2-18.0) L Hematocrit 31.8 % (42.0-52.0) L Mean Corpuscular Volume 103 FL (80-99) H Mean Corpuscular Hemoglobin 32.6 PG (27.0-31.0) H Mean Corpuscular Hemoglobin Concent 31.6 G/DL (32.0-36.0) L Red Cell Distribution Width 12.0 % (11.6-14.8) Platelet Count 253 K/UL (150-450) Mean Platelet Volume 6.9 FL (6.5-10.1) Neutrophils (%) (Auto) 75.7 % (45.0-75.0) H Lymphocytes (%) (Auto) 12.5 % (20.0-45.0) L Monocytes (%) (Auto) 9.8 % (1.0-10.0) Eosinophils (%) (Auto) 1.4 % (0.0-3.0) Basophils (%) (Auto) 0.7 % (0.0-2.0) Sodium Level 145 mEQ/L (135-145) Potassium Level 4.3 mEQ/L (3.4-4.9) Chloride Level 107 mEQ/L (98-107) Carbon Dioxide Level 23 mEQ/L (20-30) Anion Gap 15 (5-15) Blood Urea Nitrogen 22 mg/dL (7-23) Creatinine 1.0 mg/dL (0.7-1.2) Estimat Glomerular Filtration Rate mL/min (>60) Glucose Level 113 mg/dL (74-106) H Calcium Level 8.6 mg/dL (8.6-10.2) Total Bilirubin 0.4 mg/dL (0.0-1.2) Aspartate Amino Transf (AST/SGOT) 87 U/L (5-40) H Alanine Aminotransferase (ALT/SGPT) 25 U/L (3-41) Alkaline Phosphatase 123 U/L (40-129) Total Protein 6.4 g/dL (6.6-8.7) L Albumin 2.6 g/dL (3.5-5.2) L Globulin 3.8 g/dL Albumin/Globulin Ratio 0.6 (1.0-2.7) L Lipase 70 U/L (< 60) H Urine Eosinophils None seen Current Medications Medications (Trade) Dose Ordered Sig/Ady Route PRN Reason Start Time Stop Time Status Last Admin Dose Admin Acetaminophen (Tylenol) 650 mg Q4H PRN ORAL fever 11/27/16 17:00 12/27/16 16:59 11/30/16 18:46 Acetaminophen (Tylenol) 650 mg Q4H PRN RECTAL Mild Pain (Pain Scale 1-3) 11/27/16 15:30 12/27/16 15:29 11/29/16 03:44 Albuterol/ Ipratropium 3 ml 3 ml EVERY 4 HOURS PRN HHN Shortness of Breath 11/27/16 21:00 12/02/16 20:59 Dextrose/Sodium Chloride (D5ns) 1,000 ml @ 30 mls/hr Q24H IV 11/30/16 10:45 12/30/16 10:44 11/30/16 18:45 Enoxaparin Sodium (Lovenox) 40 mg DAILY SUBQ 11/28/16 09:00 12/28/16 08:59 12/01/16 08:52 Ertapenem/Sodium Chloride (INVanz/Sodium Chloride) 55 ml @ 110 mls/hr Q24H IV 11/27/16 21:00 12/02/16 20:59 11/30/16 20:41 Hydromorphone HCl (Dilaudid) 1 mg Q4H PRN IVP PAIN 1-6 11/30/16 22:00 12/04/16 18:29 Hydromorphone HCl (Dilaudid) 2 mg Q4H PRN IVP Severe Pain (Pain Scale 7-10) 11/30/16 22:00 12/07/16 21:59 12/01/16 08:51 Lorazepam 2 mg 2 mg EVERY 2 HOURS PRN IV For Anxiety 11/27/16 17:00 12/04/16 16:59 11/29/16 23:33 Metoclopramide HCl (Reglan) 10 mg EVERY 8 HOURS IVP 11/27/16 22:00 12/27/16 21:59 12/01/16 05:47 Norepinephrine Bitartrate/ Dextrose (Levophed/D5W) 254 ml @ 0 mls/hr Q24H IV 11/27/16 20:00 12/27/16 19:59 11/28/16 21:44 Ondansetron HCl (Zofran) 4 mg Q6H PRN IVP Nausea & Vomiting 11/27/16 17:00 12/27/16 16:59 Pantoprazole 40 mg 40 mg DAILY IVP 11/27/16 20:00 12/27/16 19:59 12/01/16 08:51 Polyethylene Glycol (Miralax) 17 gm DAILYPRN PRN ORAL Constipation 11/27/16 17:00 12/27/16 16:59 Jefferson Pastor M.D. Dec 01, 2016 11:43
--- NOTE | 2016-12-01 13:16 | General Surgery Progress Note ---
General Surgery-Progress Note Subjective Symptoms: improved, BM Objective Last 24 Hour Vital Signs Date Time Temp Pulse Resp B/P Pulse Ox O2 Delivery O2 Flow Rate FiO2 12/01/16 12:00 99.4 107 22 142/94 99 Nasal Cannula 3.0 12/01/16 12:00 108 12/01/16 11:00 110 20 151/85 98 Nasal Cannula 3.0 12/01/16 10:00 109 20 153/72 98 Nasal Cannula 3.0 12/01/16 09:20 99.5 12/01/16 09:00 114 22 144/67 97 Nasal Cannula 3.0 12/01/16 08:00 114 12/01/16 08:00 99.5 116 18 156/78 98 Nasal Cannula 3.0 12/01/16 07:00 114 22 151/71 97 Nasal Cannula 3.0 12/01/16 06:58 104 20 Nasal Cannula 3.0 12/01/16 06:56 Nasal Cannula 3.0 12/01/16 06:55 98 Nasal Cannula 3.0 12/01/16 06:00 112 23 158/77 97 Venturi Mask 40 12/01/16 05:00 110 21 134/79 99 Venturi Mask 40 12/01/16 05:00 112 22 134/79 98 Venturi Mask 40 12/01/16 04:00 111 12/01/16 04:00 99.8 111 20 164/74 98 Venturi Mask 40 12/01/16 04:00 99.6 111 20 134/79 99 Venturi Mask 40 12/01/16 03:00 111 21 168/67 99 Venturi Mask 40 12/01/16 02:04 108 16 148/80 98 Venturi Mask 40 12/01/16 01:00 108 15 152/89 96 Venturi Mask 40 12/01/16 00:00 112 12/01/16 00:00 100.0 112 18 135/80 99 Venturi Mask 40 11/30/16 23:00 112 15 131/70 98 Venturi Mask 40 11/30/16 22:00 116 17 131/70 96 Venturi Mask 40 11/30/16 21:00 109 18 164/76 99 Venturi Mask 8.0 40 11/30/16 20:00 108 11/30/16 20:00 100.0 111 19 148/71 98 Venturi Mask 8.0 40 11/30/16 20:00 148/71 11/30/16 19:45 100.0 11/30/16 19:30 96 Venturi Mask 8.0 40 11/30/16 19:30 106 20 Venturi Mask 8.0 40 11/30/16 19:30 Venturi Mask 8.0 40 11/30/16 19:00 109 18 135/74 99 Venturi Mask 8.0 40 11/30/16 18:30 99.7 110 17 141/75 98 Venturi Mask 8.0 40 11/30/16 18:00 108 17 141/75 96 Venturi Mask 8.0 40 11/30/16 17:09 98.9 11/30/16 17:00 110 20 152/85 98 Venturi Mask 8.0 40 11/30/16 16:00 107 11/30/16 16:00 105 20 154/73 98 Venturi Mask 8.0 40 11/30/16 15:00 98.9 110 18 141/72 97 Venturi Mask 8.0 40 11/30/16 14:00 105 18 141/70 100 Venturi Mask 8.0 40 I&O Intake and Output 11/30/16 12/01/16 19:00 07:00 Intake Total 540 ml 415 ml Output Total 681 ml 1630 ml Balance -141 ml -1215 ml Intake Oral 0 ml IV Total 540 ml 415 ml Output Urine Total 331 ml 1430 ml Stool Total 0 ml Gastric Drainage Total 210 ml Drainage Total 140 ml 200 ml # Bowel Movements 2 Dressing: dry Wound: clean, intact Drains: misty Respiratory: clear Abdomen: soft, tenderness, present bowel sounds Extremities: no tenderness Laboratory Tests Test 11/30/16 15:05 12/01/16 03:50 12/01/16 06:30 Arterial Blood pH 7.328 (7.350-7.450) Arterial Blood Partial Pressure CO2 47.3 mmHg (35.0-45.0) H Arterial Blood Partial Pressure O2 88.9 mmHg (75.0-100.0) Arterial Blood HCO3 24.3 mmol/L (22.0-26.0) Arterial Blood Oxygen Saturation 96.0 % (92.0-98.0) Arterial Blood Base Excess -1.9 David Test Positive White Blood Count 9.6 K/UL (4.8-10.8) Red Blood Count 3.09 M/UL (4.70-6.10) L Hemoglobin 10.0 G/DL (14.2-18.0) L Hematocrit 31.8 % (42.0-52.0) L Mean Corpuscular Volume 103 FL (80-99) H Mean Corpuscular Hemoglobin 32.6 PG (27.0-31.0) H Mean Corpuscular Hemoglobin Concent 31.6 G/DL (32.0-36.0) L Red Cell Distribution Width 12.0 % (11.6-14.8) Platelet Count 253 K/UL (150-450) Mean Platelet Volume 6.9 FL (6.5-10.1) Neutrophils (%) (Auto) 75.7 % (45.0-75.0) H Lymphocytes (%) (Auto) 12.5 % (20.0-45.0) L Monocytes (%) (Auto) 9.8 % (1.0-10.0) Eosinophils (%) (Auto) 1.4 % (0.0-3.0) Basophils (%) (Auto) 0.7 % (0.0-2.0) Sodium Level 145 mEQ/L (135-145) Potassium Level 4.3 mEQ/L (3.4-4.9) Chloride Level 107 mEQ/L (98-107) Carbon Dioxide Level 23 mEQ/L (20-30) Anion Gap 15 (5-15) Blood Urea Nitrogen 22 mg/dL (7-23) Creatinine 1.0 mg/dL (0.7-1.2) Estimat Glomerular Filtration Rate mL/min (>60) Glucose Level 113 mg/dL (74-106) H Calcium Level 8.6 mg/dL (8.6-10.2) Total Bilirubin 0.4 mg/dL (0.0-1.2) Aspartate Amino Transf (AST/SGOT) 87 U/L (5-40) H Alanine Aminotransferase (ALT/SGPT) 25 U/L (3-41) Alkaline Phosphatase 123 U/L (40-129) Total Protein 6.4 g/dL (6.6-8.7) L Albumin 2.6 g/dL (3.5-5.2) L Globulin 3.8 g/dL Albumin/Globulin Ratio 0.6 (1.0-2.7) L Lipase 70 U/L (< 60) H Urine Eosinophils None seen Assessment Post-op Diagnosis Ischemia of sigmoid colon Plan Additional Comments clear liquid diet WILMA BANUELOS Dec 01, 2016 13:16
[2016-12-01] MEDS ORDERED: NS 275ml ONE (17:21)
[2016-12-01] MEDS ORDERED: D5NS 1000ml IV ONE (17:21)
[2016-12-01] MEDS ORDERED: Pericolace tab ORAL SCH (18:00)
[2016-12-01] MEDS: Ertapenem 1 GM in NS 55 ML IV SCH (21:01)
[2016-12-01] MEDS ORDERED: Acetaminophen 650 MG SUPP RECTAL PRN (23:30)
[2016-12-01] MEDS: D5NS 1,000 ML IV SCH (23:36)
[2016-12-02] VITALS: BP 153/82
[2016-12-02] MEDS ORDERED: LORazepam Inj 2mg/ml 1ml IV PRN
[2016-12-02] MEDS ORDERED: DuoNeb 0.5-3(2.5)mg/3ml neb HHN PRN (01:00)
[2016-12-02] MEDS ORDERED: HYDROmorphone 1mg/ml Carpuject IVP PRN (02:00)
[2016-12-02 04:00] VITALS: BP 142/80
[2016-12-02] MEDS: Metoclopramide 10mg/2ml Inj IVP SCH ×3 (05:20→22:09)
[2016-12-02 06:09] LABS: BASOPHILS % (AUTO) 0.6 % (0.0-2.0); EOSINOPHILS % (AUTO) 1.9 % (0.0-3.0); LYMPHOCYTES % (AUTO) 14.6 % (20.0-45.0); MEAN CORPUSCULAR HEMOGLOBIN 33.1 PG (27.0-31.0); MEAN CORPUSCULAR HGB CONC 32.4 G/DL (32.0-36.0); MEAN CORPUSCULAR VOLUME 102 FL (80-99); MEAN PLATELET VOLUME 6.5 FL (6.5-10.1); MONOCYTES % (AUTO) 10.2 % (1.0-10.0); NEUTROPHILS % (AUTO) 72.7 % (45.0-75.0); PLATELET COUNT 306 K/UL (150-450); RED BLOOD COUNT 2.98 M/UL (4.70-6.10); RED CELL DISTRIBUTION WIDTH 12.1 % (11.6-14.8); WHITE BLOOD COUNT 9.4 K/UL (4.8-10.8)
[2016-12-02 07:14] LABS: ALANINE AMINOTRANSFERASE 25 U/L (3-41); ALBUMIN/GLOBULIN RATIO 0.8 (1.0-2.7); ANION GAP 14 (5-15); ASPARTATE AMINO TRANSFERASE 58 U/L (5-40); CALCIUM 8.4 mg/dL (8.6-10.2); CARBON DIOXIDE 24 mEQ/L (20-30); CHLORIDE 111 mEQ/L (98-107); HEMOLYSIS 1; POTASSIUM 3.9 mEQ/L (3.4-4.9); SODIUM 149 mEQ/L (135-145)
[2016-12-02 08:00] VITALS: BP 176/96
--- NOTE | 2016-12-02 08:59 | General Progress Note ---
Assessment/Plan Status: stable - from renal stand Status Narrative doing well on 2 liters cannula Assessment/Plan Acute renal failure- ? Undelying CKD Cr lower 2.6 to 1.9 NOW WNL Others: (1) Respiratory failure, now self extubated (2) Sepsis (3) Cardiomyopathy (4) sigmoidectomy (5) Status post exploratory laparotomy (6) COPD (chronic obstructive pulmonary disease) Plan: swallow eval Pending Slow Hydrate- Post op care- Post extubation care Respiratory support- Avoid Nephrotoxics- Monitor renal parameters, optimize pulm and cardiac status urine studies per orders Subjective ROS Limited/Unobtainable: No Constitutional: Reports: malaise Allergies: Coded Allergies: PENICILLINS (Verified Allergy, Unknown, 03/08/15) Objective Last 24 Hour Vital Signs Date Time Temp Pulse Resp B/P Pulse Ox O2 Delivery O2 Flow Rate FiO2 12/02/16 08:00 112 12/02/16 08:00 100.0 102 22 176/96 97 Nasal Cannula 2.0 117 12/02/16 07:29 Nasal Cannula 1.5 12/02/16 07:28 96 Nasal Cannula 1.5 12/02/16 07:27 114 22 Nasal Cannula 1.5 12/02/16 04:00 108 12/02/16 04:00 98.2 102 18 142/80 98 Nasal Cannula 2.0 12/02/16 00:00 105 12/02/16 00:00 98.3 106 20 153/82 96 Nasal Cannula 2.0 12/01/16 22:00 108 18 143/76 100 Nasal Cannula 2.0 12/01/16 21:00 103 18 152/80 99 Nasal Cannula 2.0 12/01/16 20:00 104 12/01/16 20:00 147/79 12/01/16 20:00 98.9 104 20 147/79 99 Nasal Cannula 2.0 12/01/16 19:00 108 18 138/71 97 Nasal Cannula 2.0 12/01/16 19:00 Nasal Cannula 3.0 12/01/16 19:00 101 20 Nasal Cannula 3.0 12/01/16 19:00 96 Nasal Cannula 3.0 12/01/16 18:00 107 18 136/84 97 Nasal Cannula 2.0 12/01/16 17:59 99.5 12/01/16 17:30 99.7 12/01/16 17:00 99.7 110 20 148/80 98 Nasal Cannula 2.0 12/01/16 16:00 99.3 109 22 150/82 99 Nasal Cannula 2.0 12/01/16 16:00 107 12/01/16 15:00 107 18 159/78 97 Nasal Cannula 2.0 12/01/16 14:00 108 18 139/83 98 Nasal Cannula 2.0 12/01/16 13:00 107 20 151/81 98 Nasal Cannula 3.0 12/01/16 12:00 99.4 107 22 142/94 99 Nasal Cannula 3.0 12/01/16 12:00 108 12/01/16 11:00 110 20 151/85 98 Nasal Cannula 3.0 12/01/16 10:00 109 20 153/72 98 Nasal Cannula 3.0 12/01/16 09:00 114 22 144/67 97 Nasal Cannula 3.0 Intake and Output 12/01/16 12/02/16 19:00 07:00 Intake Total 360 ml 365 ml Output Total 1540 ml 755 ml Balance -1180 ml -390 ml Intake Oral 0 ml 0 ml IV Total 360 ml 365 ml Output Urine Total 400 ml 435 ml Stool Total 750 ml 150 ml Drainage Total 390 ml 170 ml Laboratory Tests 12/02/16 05:20: White Blood Count 9.4, Red Blood Count 2.98L, Hemoglobin 9.8L, Hematocrit 30.4L , Mean Corpuscular Volume 102H, Mean Corpuscular Hemoglobin 33.1H, Mean Corpuscular Hemoglobin Concent 32.4, Red Cell Distribution Width 12.1, Platelet Count 306, Mean Platelet Volume 6.5, Neutrophils (%) (Auto) 72.7, Lymphocytes (% ) (Auto) 14.6L, Monocytes (%) (Auto) 10.2H, Eosinophils (%) (Auto) 1.9, Basophils (%) (Auto) 0.6, Sodium Level 149H, Potassium Level 3.9, Chloride Level 111H, Carbon Dioxide Level 24, Anion Gap 14, Blood Urea Nitrogen 17, Creatinine 1.0, Estimat Glomerular Filtration Rate , Glucose Level 124H, Calcium Level 8.4L, Total Bilirubin 0.3, Aspartate Amino Transf (AST/SGOT) 58H, Alanine Aminotransferase (ALT/SGPT) 25, Alkaline Phosphatase 103, Pro-B-Type Natriuretic Peptide 2179H, Total Protein 6.0L, Albumin 2.7L, Globulin 3.3, Albumin/Globulin Ratio 0.8L Height (Feet): 5 Height (Inches): 11.00 Weight (Pounds): 195 General Appearance: mild distress Respiratory/Chest: decreased breath sounds Objective PE not changed LESLIE VILLEDA Dec 02, 2016 08:59
[2016-12-02] MEDS: Enoxaparin 40mg Inj SUBQ SCH (09:00)
[2016-12-02] MEDS: Pericolace tab ORAL SCH ×2 (09:00→18:00)
[2016-12-02] MEDS: Pantoprazole Inj IVP SCH (10:54)
--- NOTE | 2016-12-02 11:33 | Diagnostic Imaging Report ---
Indication: Dyspnea Comparison: 11/30/16 A single view chest radiograph was obtained. Findings: The heart is enlarged. There is aortic stent once again noted. There is evidence of mild basilar atelectasis. Impression: No significant change from two days earlier
[2016-12-02 12:00] VITALS: BP 158/86
--- NOTE | 2016-12-02 12:15 | Pulmonology Progress Note ---
Assessment/Plan Problems: (1) sigmoidectomy (2) Respiratory failure (3) Sepsis (4) Cardiomyopathy (5) Status post exploratory laparotomy (6) COPD (chronic obstructive pulmonary disease) Assessment/Plan improving check electroltyes start feeding try to dc SHWETA tube. check wbc Subjective ROS Limited/Unobtainable: No Constitutional: Reports: no symptoms HEENT: Repors: no symptoms Respiratory: Reports: no symptoms Cardiovascular: Reports: no symptoms Gastrointestinal/Abdominal: Reports: no symptoms Allergies: Coded Allergies: PENICILLINS (Verified Allergy, Unknown, 03/08/15) Objective Last 24 Hour Vital Signs Date Time Temp Pulse Resp B/P Pulse Ox O2 Delivery O2 Flow Rate FiO2 12/02/16 08:00 112 12/02/16 08:00 100.0 102 22 176/96 97 Nasal Cannula 2.0 117 12/02/16 07:29 Nasal Cannula 1.5 12/02/16 07:28 96 Nasal Cannula 1.5 12/02/16 07:27 114 22 Nasal Cannula 1.5 12/02/16 04:00 108 12/02/16 04:00 98.2 102 18 142/80 98 Nasal Cannula 2.0 12/02/16 00:00 105 12/02/16 00:00 98.3 106 20 153/82 96 Nasal Cannula 2.0 12/01/16 22:00 108 18 143/76 100 Nasal Cannula 2.0 12/01/16 21:00 103 18 152/80 99 Nasal Cannula 2.0 12/01/16 20:00 104 12/01/16 20:00 147/79 12/01/16 20:00 98.9 104 20 147/79 99 Nasal Cannula 2.0 12/01/16 19:00 108 18 138/71 97 Nasal Cannula 2.0 12/01/16 19:00 Nasal Cannula 3.0 12/01/16 19:00 101 20 Nasal Cannula 3.0 12/01/16 19:00 96 Nasal Cannula 3.0 12/01/16 18:00 107 18 136/84 97 Nasal Cannula 2.0 12/01/16 17:59 99.5 12/01/16 17:30 99.7 12/01/16 17:00 99.7 110 20 148/80 98 Nasal Cannula 2.0 12/01/16 16:00 99.3 109 22 150/82 99 Nasal Cannula 2.0 12/01/16 16:00 107 12/01/16 15:00 107 18 159/78 97 Nasal Cannula 2.0 12/01/16 14:00 108 18 139/83 98 Nasal Cannula 2.0 12/01/16 13:00 107 20 151/81 98 Nasal Cannula 3.0 Intake and Output 12/01/16 12/02/16 19:00 07:00 Intake Total 360 ml 365 ml Output Total 1540 ml 755 ml Balance -1180 ml -390 ml Intake Oral 0 ml 0 ml IV Total 360 ml 365 ml Output Urine Total 400 ml 435 ml Stool Total 750 ml 150 ml Drainage Total 390 ml 170 ml General Appearance: no acute distress HEENT: normocephalic, anicteric Respiratory/Chest: chest wall non-tender, lungs clear Cardiovascular: normal peripheral pulses, normal rate Abdomen: normal bowel sounds, soft, non tender Extremities: no cyanosis, no clubbing 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, abnormal gait Lymphatic: no neck adenopathy Laboratory Tests 12/02/16 05:20: White Blood Count 9.4, Red Blood Count 2.98L, Hemoglobin 9.8L, Hematocrit 30.4L , Mean Corpuscular Volume 102H, Mean Corpuscular Hemoglobin 33.1H, Mean Corpuscular Hemoglobin Concent 32.4, Red Cell Distribution Width 12.1, Platelet Count 306, Mean Platelet Volume 6.5, Neutrophils (%) (Auto) 72.7, Lymphocytes (% ) (Auto) 14.6L, Monocytes (%) (Auto) 10.2H, Eosinophils (%) (Auto) 1.9, Basophils (%) (Auto) 0.6, Sodium Level 149H, Potassium Level 3.9, Chloride Level 111H, Carbon Dioxide Level 24, Anion Gap 14, Blood Urea Nitrogen 17, Creatinine 1.0, Estimat Glomerular Filtration Rate , Glucose Level 124H, Calcium Level 8.4L, Total Bilirubin 0.3, Aspartate Amino Transf (AST/SGOT) 58H, Alanine Aminotransferase (ALT/SGPT) 25, Alkaline Phosphatase 103, Pro-B-Type Natriuretic Peptide 2179H, Total Protein 6.0L, Albumin 2.7L, Globulin 3.3, Albumin/Globulin Ratio 0.8L Current Medications Medications (Trade) Dose Ordered Sig/Ady Route PRN Reason Start Time Stop Time Status Last Admin Dose Admin Acetaminophen (Tylenol) 650 mg Q4H PRN ORAL fever 12/02/16 01:00 01/01/17 00:59 Acetaminophen (Tylenol) 650 mg Q4H PRN RECTAL Mild Pain (Pain Scale 1-3) 12/01/16 23:30 12/31/16 23:29 Albuterol/ Ipratropium (DuoNeb 0.5-3(2.5)mg/3ml) 3 ml Q4H PRN HHN Shortness of Breath 12/02/16 01:00 12/07/16 00:59 Dextrose/Sodium Chloride 1,000 ml @ 30 mls/hr Q24H IV 12/01/16 23:30 12/31/16 23:29 12/01/16 23:36 Enoxaparin Sodium (Lovenox) 40 mg DAILY SUBQ 12/02/16 09:00 01/01/17 08:59 12/02/16 09:00 Ertapenem/Sodium Chloride (INVanz/Sodium Chloride) 55 ml @ 110 mls/hr Q24H IV 12/02/16 21:00 12/03/16 20:59 Hydromorphone HCl (Dilaudid) 1 mg Q4H PRN IVP PAIN 1-6 12/02/16 02:00 12/09/16 01:59 Hydromorphone HCl (Dilaudid) 2 mg Q4H PRN IVP Severe Pain (Pain Scale 7-10) 12/02/16 02:00 12/09/16 01:59 Lorazepam (Ativan 2mg/ml 1ml) 2 mg Q2H PRN IV For Anxiety 12/02/16 00:00 12/09/16 00:00 Metoclopramide HCl (Reglan) 10 mg EVERY 8 HOURS IVP 12/02/16 06:00 01/01/17 05:59 12/02/16 05:20 Ondansetron HCl (Zofran) 4 mg Q6H PRN IVP Nausea & Vomiting 12/01/16 23:00 12/31/16 22:59 Pantoprazole (Protonix) 40 mg DAILY IVP 12/02/16 09:00 01/01/17 08:59 12/02/16 10:54 Polyethylene Glycol (Miralax) 17 gm DAILYPRN PRN ORAL Constipation 12/02/16 17:00 01/01/17 16:59 Senna/Docusate Sodium (Kristen-Colace) 1 ea TWICE A DAY ORAL 12/02/16 09:00 01/01/17 08:59 BUCKY WOLF Dec 02, 2016 12:15
--- NOTE | 2016-12-02 12:50 | Diagnostic Imaging Report ---
APPROVED REPORT CPT Code: 94229 Present Symptoms Comments: R/O DVT Technically difficult study (bilateral contractures of the hip and knee). BILATERAL: Imaging reveals a patent deep venous system bilaterally. There is no evidence of thrombus within the femoral, or popliteal segments. The greater saphenous veins are also within normal limits. Doppler indicates normal spontaneous flow within these segments. Technically difficult study due to vessel depth calf area.
--- NOTE | 2016-12-02 13:24 | Infectious Diseases Prog Note ---
Assessment/Plan Assessment/Plan ASSESSMENT: The patient is a 70-year-old male on IV ertapenem 1gm q24hr day 6 for intrabadominal sepsis, with negative blood cx from 11/28, negative peritoneal operative fluid from 11/27. Sepsis, improving Fever, improving Leukocytosis, SP Ischemic colitis SP sigmoidectomy and colostomy on 11/27 SP self extubation 11/30 GRETEL improving Seizure disorder Atrial fibrillation Anemia Hypertension Asthma BPH Diabetes Anemia PLAN: continue the patient on IV ertapenem d# 6 / . final day of therapy 12/03/16. Monitor CBC. Monitor BMP. will follow GenSx recs Subjective Allergies: Coded Allergies: PENICILLINS (Verified Allergy, Unknown, 03/08/15) Subjective afebrile o/n with Tmax 99.5F NGT clamped. formed stool passing from below. Objective Vital Signs Last 24 Hour Vital Signs Date Time Temp Pulse Resp B/P Pulse Ox O2 Delivery O2 Flow Rate FiO2 12/02/16 12:00 114 12/02/16 08:00 112 12/02/16 08:00 100.0 102 22 176/96 97 Nasal Cannula 2.0 117 12/02/16 07:29 Nasal Cannula 1.5 12/02/16 07:28 96 Nasal Cannula 1.5 12/02/16 07:27 114 22 Nasal Cannula 1.5 12/02/16 04:00 108 12/02/16 04:00 98.2 102 18 142/80 98 Nasal Cannula 2.0 12/02/16 00:00 105 12/02/16 00:00 98.3 106 20 153/82 96 Nasal Cannula 2.0 12/01/16 22:00 108 18 143/76 100 Nasal Cannula 2.0 12/01/16 21:00 103 18 152/80 99 Nasal Cannula 2.0 12/01/16 20:00 104 12/01/16 20:00 147/79 12/01/16 20:00 98.9 104 20 147/79 99 Nasal Cannula 2.0 12/01/16 19:00 108 18 138/71 97 Nasal Cannula 2.0 12/01/16 19:00 Nasal Cannula 3.0 12/01/16 19:00 101 20 Nasal Cannula 3.0 12/01/16 19:00 96 Nasal Cannula 3.0 12/01/16 18:00 107 18 136/84 97 Nasal Cannula 2.0 12/01/16 17:59 99.5 12/01/16 17:30 99.7 12/01/16 17:00 99.7 110 20 148/80 98 Nasal Cannula 2.0 12/01/16 16:00 99.3 109 22 150/82 99 Nasal Cannula 2.0 12/01/16 16:00 107 12/01/16 15:00 107 18 159/78 97 Nasal Cannula 2.0 12/01/16 14:00 108 18 139/83 98 Nasal Cannula 2.0 Height (Feet): 5 Height (Inches): 11.00 Weight (Pounds): 195 General Appearance: no acute distress HEENT: anicteric Respiratory/Chest: lungs clear Cardiovascular: normal rate Abdomen: soft, non tender, other - surgical scar Extremities: no edema Skin: no rash Objective NGT in place clamped. scant bloody oral suction. PIV c/'d/i. tachycardic with RIP. abd with midline large bulky dressing in place, ostomy in place. abd not distended, not tense. Laboratory Tests Test 12/02/16 05:20 White Blood Count 9.4 K/UL (4.8-10.8) Red Blood Count 2.98 M/UL (4.70-6.10) L Hemoglobin 9.8 G/DL (14.2-18.0) L Hematocrit 30.4 % (42.0-52.0) L Mean Corpuscular Volume 102 FL (80-99) H Mean Corpuscular Hemoglobin 33.1 PG (27.0-31.0) H Mean Corpuscular Hemoglobin Concent 32.4 G/DL (32.0-36.0) Red Cell Distribution Width 12.1 % (11.6-14.8) Platelet Count 306 K/UL (150-450) Mean Platelet Volume 6.5 FL (6.5-10.1) Neutrophils (%) (Auto) 72.7 % (45.0-75.0) Lymphocytes (%) (Auto) 14.6 % (20.0-45.0) L Monocytes (%) (Auto) 10.2 % (1.0-10.0) H Eosinophils (%) (Auto) 1.9 % (0.0-3.0) Basophils (%) (Auto) 0.6 % (0.0-2.0) Sodium Level 149 mEQ/L (135-145) H Potassium Level 3.9 mEQ/L (3.4-4.9) Chloride Level 111 mEQ/L (98-107) H Carbon Dioxide Level 24 mEQ/L (20-30) Anion Gap 14 (5-15) Blood Urea Nitrogen 17 mg/dL (7-23) Creatinine 1.0 mg/dL (0.7-1.2) Estimat Glomerular Filtration Rate mL/min (>60) Glucose Level 124 mg/dL (74-106) H Calcium Level 8.4 mg/dL (8.6-10.2) L Total Bilirubin 0.3 mg/dL (0.0-1.2) Aspartate Amino Transf (AST/SGOT) 58 U/L (5-40) H Alanine Aminotransferase (ALT/SGPT) 25 U/L (3-41) Alkaline Phosphatase 103 U/L (40-129) Pro-B-Type Natriuretic Peptide 2179 pg/mL (0-125) H Total Protein 6.0 g/dL (6.6-8.7) L Albumin 2.7 g/dL (3.5-5.2) L Globulin 3.3 g/dL Albumin/Globulin Ratio 0.8 (1.0-2.7) L Current Medications Medications (Trade) Dose Ordered Sig/Ady Route PRN Reason Start Time Stop Time Status Last Admin Dose Admin Acetaminophen (Tylenol) 650 mg Q4H PRN ORAL fever 12/02/16 01:00 01/01/17 00:59 Acetaminophen (Tylenol) 650 mg Q4H PRN RECTAL Mild Pain (Pain Scale 1-3) 12/01/16 23:30 12/31/16 23:29 Albuterol/ Ipratropium (DuoNeb 0.5-3(2.5)mg/3ml) 3 ml Q4H PRN HHN Shortness of Breath 12/02/16 01:00 12/07/16 00:59 Dextrose/Sodium Chloride 1,000 ml @ 30 mls/hr Q24H IV 12/01/16 23:30 12/31/16 23:29 12/01/16 23:36 Enoxaparin Sodium (Lovenox) 40 mg DAILY SUBQ 12/02/16 09:00 01/01/17 08:59 12/02/16 09:00 Ertapenem/Sodium Chloride (INVanz/Sodium Chloride) 55 ml @ 110 mls/hr Q24H IV 12/02/16 21:00 12/03/16 20:59 Hydromorphone HCl (Dilaudid) 1 mg Q4H PRN IVP PAIN 1-6 12/02/16 02:00 12/09/16 01:59 Hydromorphone HCl (Dilaudid) 2 mg Q4H PRN IVP Severe Pain (Pain Scale 7-10) 12/02/16 02:00 12/09/16 01:59 Lorazepam (Ativan 2mg/ml 1ml) 2 mg Q2H PRN IV For Anxiety 12/02/16 00:00 12/09/16 00:00 Metoclopramide HCl (Reglan) 10 mg EVERY 8 HOURS IVP 12/02/16 06:00 01/01/17 05:59 12/02/16 05:20 Ondansetron HCl (Zofran) 4 mg Q6H PRN IVP Nausea & Vomiting 12/01/16 23:00 12/31/16 22:59 Pantoprazole (Protonix) 40 mg DAILY IVP 12/02/16 09:00 01/01/17 08:59 12/02/16 10:54 Polyethylene Glycol (Miralax) 17 gm DAILYPRN PRN ORAL Constipation 12/02/16 17:00 01/01/17 16:59 Senna/Docusate Sodium (Kristen-Colace) 1 ea TWICE A DAY ORAL 12/02/16 09:00 01/01/17 08:59 Jefferson Pastor M.D. Dec 02, 2016 13:24
--- NOTE | 2016-12-02 16:01 | General Surgery Progress Note ---
General Surgery-Progress Note Subjective Symptoms: improved, BM Objective Last 24 Hour Vital Signs Date Time Temp Pulse Resp B/P Pulse Ox O2 Delivery O2 Flow Rate FiO2 12/02/16 12:00 114 12/02/16 12:00 98.2 111 22 158/86 97 Nasal Cannula 2.0 102 12/02/16 08:00 112 12/02/16 08:00 100.0 102 22 176/96 97 Nasal Cannula 2.0 117 12/02/16 07:29 Nasal Cannula 1.5 12/02/16 07:28 96 Nasal Cannula 1.5 12/02/16 07:27 114 22 Nasal Cannula 1.5 12/02/16 04:00 108 12/02/16 04:00 98.2 102 18 142/80 98 Nasal Cannula 2.0 12/02/16 00:00 105 12/02/16 00:00 98.3 106 20 153/82 96 Nasal Cannula 2.0 12/01/16 22:00 108 18 143/76 100 Nasal Cannula 2.0 12/01/16 21:00 103 18 152/80 99 Nasal Cannula 2.0 12/01/16 20:00 104 12/01/16 20:00 147/79 12/01/16 20:00 98.9 104 20 147/79 99 Nasal Cannula 2.0 12/01/16 19:00 108 18 138/71 97 Nasal Cannula 2.0 12/01/16 19:00 Nasal Cannula 3.0 12/01/16 19:00 101 20 Nasal Cannula 3.0 12/01/16 19:00 96 Nasal Cannula 3.0 12/01/16 18:00 107 18 136/84 97 Nasal Cannula 2.0 12/01/16 17:59 99.5 12/01/16 17:30 99.7 12/01/16 17:00 99.7 110 20 148/80 98 Nasal Cannula 2.0 12/01/16 16:00 99.3 109 22 150/82 99 Nasal Cannula 2.0 12/01/16 16:00 107 I&O Intake and Output 12/01/16 12/02/16 19:00 07:00 Intake Total 360 ml 365 ml Output Total 1540 ml 755 ml Balance -1180 ml -390 ml Intake Oral 0 ml 0 ml IV Total 360 ml 365 ml Output Urine Total 400 ml 435 ml Stool Total 750 ml 150 ml Drainage Total 390 ml 170 ml Dressing: dry Drains: misty Respiratory: clear Abdomen: soft, tenderness, present bowel sounds Extremities: no tenderness Laboratory Tests Test 12/02/16 05:20 White Blood Count 9.4 K/UL (4.8-10.8) Red Blood Count 2.98 M/UL (4.70-6.10) L Hemoglobin 9.8 G/DL (14.2-18.0) L Hematocrit 30.4 % (42.0-52.0) L Mean Corpuscular Volume 102 FL (80-99) H Mean Corpuscular Hemoglobin 33.1 PG (27.0-31.0) H Mean Corpuscular Hemoglobin Concent 32.4 G/DL (32.0-36.0) Red Cell Distribution Width 12.1 % (11.6-14.8) Platelet Count 306 K/UL (150-450) Mean Platelet Volume 6.5 FL (6.5-10.1) Neutrophils (%) (Auto) 72.7 % (45.0-75.0) Lymphocytes (%) (Auto) 14.6 % (20.0-45.0) L Monocytes (%) (Auto) 10.2 % (1.0-10.0) H Eosinophils (%) (Auto) 1.9 % (0.0-3.0) Basophils (%) (Auto) 0.6 % (0.0-2.0) Sodium Level 149 mEQ/L (135-145) H Potassium Level 3.9 mEQ/L (3.4-4.9) Chloride Level 111 mEQ/L (98-107) H Carbon Dioxide Level 24 mEQ/L (20-30) Anion Gap 14 (5-15) Blood Urea Nitrogen 17 mg/dL (7-23) Creatinine 1.0 mg/dL (0.7-1.2) Estimat Glomerular Filtration Rate mL/min (>60) Glucose Level 124 mg/dL (74-106) H Calcium Level 8.4 mg/dL (8.6-10.2) L Total Bilirubin 0.3 mg/dL (0.0-1.2) Aspartate Amino Transf (AST/SGOT) 58 U/L (5-40) H Alanine Aminotransferase (ALT/SGPT) 25 U/L (3-41) Alkaline Phosphatase 103 U/L (40-129) Pro-B-Type Natriuretic Peptide 2179 pg/mL (0-125) H Total Protein 6.0 g/dL (6.6-8.7) L Albumin 2.7 g/dL (3.5-5.2) L Globulin 3.3 g/dL Albumin/Globulin Ratio 0.8 (1.0-2.7) L Assessment Post-op Diagnosis Ischemia of sigmoid colon Plan Additional Comments G-I consult for PEG placement patient does not swallow WILMA BANUELOS Dec 02, 2016 16:01
[2016-12-02] MEDS ORDERED: D5NS 1000ml IV ONE (16:50)
[2016-12-02] MEDS ORDERED: NS 275ml ONE (16:50)
[2016-12-02] MEDS ORDERED: Miralax 17gm pkt ORAL PRN (17:00)
[2016-12-02 20:00] VITALS: BP 158/96
[2016-12-02] MEDS: Ertapenem 1 GM in NS 55 ML IV SCH (20:03)
[2016-12-02] MEDS ORDERED: Acetaminophen 650 MG SUPP RECTAL PRN (20:21)
[2016-12-02] MEDS: D5NS 1,000 ML IV SCH (22:09)
[2016-12-03] VITALS: BP 154/88
[2016-12-03 04:00] VITALS: BP 153/81
[2016-12-03] MEDS: Metoclopramide 10mg/2ml Inj IVP SCH ×3 (05:09→22:09)
[2016-12-03 06:39] LABS: BASOPHILS % (AUTO) 1.1 % (0.0-2.0); EOSINOPHILS % (AUTO) 1.7 % (0.0-3.0); MEAN CORPUSCULAR HEMOGLOBIN 32.2 PG (27.0-31.0); MEAN CORPUSCULAR HGB CONC 31.4 G/DL (32.0-36.0); MEAN CORPUSCULAR VOLUME 103 FL (80-99); MONOCYTES % (AUTO) 6.3 % (1.0-10.0); NEUTROPHILS % (AUTO) 76.9 % (45.0-75.0); PLATELET COUNT 351 K/UL (150-450); RED BLOOD COUNT 3.09 M/UL (4.70-6.10); RED CELL DISTRIBUTION WIDTH 11.9 % (11.6-14.8); WHITE BLOOD COUNT 11.4 K/UL (4.8-10.8)
[2016-12-03 07:11] LABS: ALANINE AMINOTRANSFERASE 24 U/L (3-41); ALBUMIN/GLOBULIN RATIO 0.7 (1.0-2.7); ANION GAP 10 (5-15); ASPARTATE AMINO TRANSFERASE 47 U/L (5-40); CALCIUM 8.5 mg/dL (8.6-10.2); CARBON DIOXIDE 27 mEQ/L (20-30); CHLORIDE 114 mEQ/L (98-107); HEMOLYSIS 8; MAGNESIUM 1.7 mg/dL (1.7-2.5); PHOSPHORUS 3.2 mg/dL (2.5-4.8); POTASSIUM 3.9 mEQ/L (3.4-4.9); SODIUM 151 mEQ/L (135-145); TOTAL PROTEIN 6.2 g/dL (6.6-8.7)
[2016-12-03 08:52] VITALS: BP 124/98
[2016-12-03] MEDS: Pericolace tab ORAL SCH ×2 (09:00→17:39)
[2016-12-03] MEDS: Pantoprazole Inj IVP SCH (09:05)
[2016-12-03] MEDS: Enoxaparin 40mg Inj SUBQ SCH (09:07)
--- NOTE | 2016-12-03 10:07 | Pulmonology Progress Note ---
Assessment/Plan Problems: (1) sigmoidectomy (2) Respiratory failure (3) Sepsis (4) Cardiomyopathy (5) Status post exploratory laparotomy (6) COPD (chronic obstructive pulmonary disease) Assessment/Plan not able to eat change iv fluid to d5w improving check electroltyes might need PEG check labs in am Subjective ROS Limited/Unobtainable: No Constitutional: Reports: no symptoms HEENT: Repors: no symptoms Respiratory: Reports: no symptoms Allergies: Coded Allergies: PENICILLINS (Verified Allergy, Unknown, 03/08/15) Objective Last 24 Hour Vital Signs Date Time Temp Pulse Resp B/P Pulse Ox O2 Delivery O2 Flow Rate FiO2 12/03/16 08:52 99.1 89 18 124/98 94 Nasal Cannula 2.0 12/03/16 07:09 92 20 Nasal Cannula 2.0 12/03/16 07:09 Nasal Cannula 2.0 28 12/03/16 07:09 96 Nasal Cannula 2.0 28 12/03/16 04:00 94 12/03/16 04:00 98.2 96 20 153/81 Nasal Cannula 2.0 12/03/16 00:00 98.1 98 18 154/88 94 Nasal Cannula 2.0 12/03/16 00:00 97 12/02/16 20:52 98.1 12/02/16 20:52 98.1 12/02/16 20:00 112 12/02/16 20:00 99.5 113 20 158/96 Nasal Cannula 1.5 97 12/02/16 19:13 Nasal Cannula 2.0 28 12/02/16 19:12 97 Nasal Cannula 2.0 28 12/02/16 19:12 108 22 Nasal Cannula 2.0 12/02/16 16:00 112 12/02/16 12:00 114 12/02/16 12:00 98.2 111 22 158/86 97 Nasal Cannula 2.0 102 Intake and Output 12/02/16 12/03/16 19:00 07:00 Intake Total 360 ml 360 ml Output Total 380 ml 545 ml Balance -20 ml -185 ml IV Total 360 ml 360 ml Output Urine Total 300 ml Stool Total 220 ml 100 ml Drainage Total 160 ml 145 ml # Bowel Movements 95 General Appearance: WD/WN HEENT: normocephalic Respiratory/Chest: chest wall non-tender, lungs clear Cardiovascular: normal peripheral pulses, normal rate Abdomen: normal bowel sounds, soft, non tender Genitourinary: normal external genitalia Extremities: no clubbing Skin: no lesions Laboratory Tests 12/03/16 06:00: White Blood Count 11.4H, Red Blood Count 3.09L, Hemoglobin 9.9L, Hematocrit 31.7L, Mean Corpuscular Volume 103H, Mean Corpuscular Hemoglobin 32.2H, Mean Corpuscular Hemoglobin Concent 31.4L, Red Cell Distribution Width 11.9, Platelet Count 351, Mean Platelet Volume 6.0L, Neutrophils (%) (Auto) 76.9H, Lymphocytes (%) (Auto) 14.0L, Monocytes (%) (Auto) 6.3, Eosinophils (%) (Auto) 1.7, Basophils (%) (Auto) 1.1, Sodium Level 151H, Potassium Level 3.9, Chloride Level 114H, Carbon Dioxide Level 27, Anion Gap 10, Blood Urea Nitrogen 15, Creatinine 1.0, Estimat Glomerular Filtration Rate , Glucose Level 133H, Calcium Level 8.5L, Phosphorus Level 3.2, Magnesium Level 1.7, Total Bilirubin < 0.2, Aspartate Amino Transf (AST/SGOT) 47H, Alanine Aminotransferase (ALT/SGPT ) 24, Alkaline Phosphatase 106, Total Protein 6.2L, Albumin 2.7L, Globulin 3.5, Albumin/Globulin Ratio 0.7L Current Medications Medications (Trade) Dose Ordered Sig/Ady Route PRN Reason Start Time Stop Time Status Last Admin Dose Admin Acetaminophen (Tylenol) 650 mg Q4H PRN ORAL fever 12/02/16 01:00 01/01/17 00:59 Acetaminophen 650 mg 650 mg Q4H PRN RECTAL Mild Pain/Fever 12/02/16 20:21 01/01/17 20:20 12/02/16 20:22 Albuterol/ Ipratropium (DuoNeb 0.5-3(2.5)mg/3ml) 3 ml Q4H PRN HHN Shortness of Breath 12/02/16 01:00 12/07/16 00:59 Dextrose (D5W 1000ml) 1,000 ml @ 75 mls/hr [id number] IV 12/03/16 10:15 01/02/17 10:14 UNV Enoxaparin Sodium (Lovenox) 40 mg DAILY SUBQ 12/02/16 09:00 01/01/17 08:59 12/03/16 09:07 Ertapenem/Sodium Chloride (INVanz/Sodium Chloride) 55 ml @ 110 mls/hr Q24H IV 12/02/16 21:00 12/03/16 23:59 12/02/16 20:03 Hydromorphone HCl (Dilaudid) 1 mg Q4H PRN IVP PAIN 1-6 12/02/16 02:00 12/09/16 01:59 Hydromorphone HCl (Dilaudid) 2 mg Q4H PRN IVP Severe Pain (Pain Scale 7-10) 12/02/16 02:00 12/09/16 01:59 Lorazepam (Ativan 2mg/ml 1ml) 2 mg Q2H PRN IV For Anxiety 12/02/16 00:00 12/09/16 00:00 Metoclopramide HCl (Reglan) 10 mg EVERY 8 HOURS IVP 12/02/16 06:00 01/01/17 05:59 12/03/16 05:09 Ondansetron HCl (Zofran) 4 mg Q6H PRN IVP Nausea & Vomiting 12/01/16 23:00 12/31/16 22:59 Pantoprazole (Protonix) 40 mg DAILY IVP 12/02/16 09:00 01/01/17 08:59 12/03/16 09:05 Polyethylene Glycol (Miralax) 17 gm DAILYPRN PRN ORAL Constipation 12/02/16 17:00 01/01/17 16:59 Senna/Docusate Sodium (Kristen-Colace) 1 ea TWICE A DAY ORAL 12/02/16 09:00 01/01/17 08:59 BUCKY WOLF Dec 03, 2016 10:07
--- NOTE | 2016-12-03 12:22 | Infectious Diseases Prog Note ---
Assessment/Plan Assessment/Plan ASSESSMENT: 70-year-old male on IV ertapenem 1gm q24hr day 7 for intrabadominal sepsis s/p ischemic colitis requiring sigmoidectomy on 11/27/16, with negative blood cx from 11/28, negative peritoneal operative fluid from 11/27. WBC borderline today, has previously had some low grade fevers, but has received adequate post operative antibiotics and will continue to monitor temp curve and WBC daily after completing his ertapenem tonight. Sepsis, improving Fever, improving Leukocytosis, SP Ischemic colitis SP sigmoidectomy and colostomy on 11/27 SP self extubation 11/30 GRETEL improving Seizure disorder Atrial fibrillation Anemia Hypertension Asthma BPH Diabetes Anemia PLAN: D/C ertapenem tonight after final dose day #12/02. Monitor CBC. Monitor BMP. monitor temp curve Subjective Allergies: Coded Allergies: PENICILLINS (Verified Allergy, Unknown, 03/08/15) Subjective afebrile o/n with Tmax 99.5F NGT clamped. formed stool passing from below. Objective Vital Signs Last 24 Hour Vital Signs Date Time Temp Pulse Resp B/P Pulse Ox O2 Delivery O2 Flow Rate FiO2 12/03/16 08:52 99.1 89 18 124/98 94 Nasal Cannula 2.0 12/03/16 08:02 85 12/03/16 07:09 92 20 Nasal Cannula 2.0 12/03/16 07:09 Nasal Cannula 2.0 28 12/03/16 07:09 96 Nasal Cannula 2.0 28 12/03/16 04:00 94 12/03/16 04:00 98.2 96 20 153/81 Nasal Cannula 2.0 12/03/16 00:00 98.1 98 18 154/88 94 Nasal Cannula 2.0 12/03/16 00:00 97 12/02/16 20:52 98.1 12/02/16 20:52 98.1 12/02/16 20:00 112 12/02/16 20:00 99.5 113 20 158/96 Nasal Cannula 1.5 97 12/02/16 19:13 Nasal Cannula 2.0 28 12/02/16 19:12 97 Nasal Cannula 2.0 28 12/02/16 19:12 108 22 Nasal Cannula 2.0 12/02/16 16:00 112 Height (Feet): 5 Height (Inches): 11.00 Weight (Pounds): 195 General Appearance: no acute distress HEENT: anicteric Respiratory/Chest: lungs clear Cardiovascular: normal rate Abdomen: soft, non tender Extremities: no edema Skin: no rash Objective NGT in place clamped. scant bloody oral suction. PIV c/'d/i. tachycardic with RIP. abd with midline large bulky dressing in place, ostomy in place. abd not distended, not tense. Laboratory Tests Test 12/03/16 06:00 White Blood Count 11.4 K/UL (4.8-10.8) H Red Blood Count 3.09 M/UL (4.70-6.10) L Hemoglobin 9.9 G/DL (14.2-18.0) L Hematocrit 31.7 % (42.0-52.0) L Mean Corpuscular Volume 103 FL (80-99) H Mean Corpuscular Hemoglobin 32.2 PG (27.0-31.0) H Mean Corpuscular Hemoglobin Concent 31.4 G/DL (32.0-36.0) L Red Cell Distribution Width 11.9 % (11.6-14.8) Platelet Count 351 K/UL (150-450) Mean Platelet Volume 6.0 FL (6.5-10.1) L Neutrophils (%) (Auto) 76.9 % (45.0-75.0) H Lymphocytes (%) (Auto) 14.0 % (20.0-45.0) L Monocytes (%) (Auto) 6.3 % (1.0-10.0) Eosinophils (%) (Auto) 1.7 % (0.0-3.0) Basophils (%) (Auto) 1.1 % (0.0-2.0) Sodium Level 151 mEQ/L (135-145) H Potassium Level 3.9 mEQ/L (3.4-4.9) Chloride Level 114 mEQ/L (98-107) H Carbon Dioxide Level 27 mEQ/L (20-30) Anion Gap 10 (5-15) Blood Urea Nitrogen 15 mg/dL (7-23) Creatinine 1.0 mg/dL (0.7-1.2) Estimat Glomerular Filtration Rate mL/min (>60) Glucose Level 133 mg/dL (74-106) H Calcium Level 8.5 mg/dL (8.6-10.2) L Phosphorus Level 3.2 mg/dL (2.5-4.8) Magnesium Level 1.7 mg/dL (1.7-2.5) Total Bilirubin < 0.2 mg/dL (0.0-1.2) Aspartate Amino Transf (AST/SGOT) 47 U/L (5-40) H Alanine Aminotransferase (ALT/SGPT) 24 U/L (3-41) Alkaline Phosphatase 106 U/L (40-129) Total Protein 6.2 g/dL (6.6-8.7) L Albumin 2.7 g/dL (3.5-5.2) L Globulin 3.5 g/dL Albumin/Globulin Ratio 0.7 (1.0-2.7) L Current Medications Medications (Trade) Dose Ordered Sig/Ady Route PRN Reason Start Time Stop Time Status Last Admin Dose Admin Acetaminophen (Tylenol) 650 mg Q4H PRN ORAL fever 12/02/16 01:00 01/01/17 00:59 Acetaminophen 650 mg 650 mg Q4H PRN RECTAL Mild Pain/Fever 12/02/16 20:21 01/01/17 20:20 12/02/16 20:22 Albuterol/ Ipratropium (DuoNeb 0.5-3(2.5)mg/3ml) 3 ml Q4H PRN HHN Shortness of Breath 12/02/16 01:00 12/07/16 00:59 Dextrose (D5W 1000ml) 1,000 ml @ 75 mls/hr [id number] IV 12/03/16 10:30 01/02/17 10:29 12/03/16 10:37 Enoxaparin Sodium (Lovenox) 40 mg DAILY SUBQ 12/02/16 09:00 01/01/17 08:59 12/03/16 09:07 Ertapenem/Sodium Chloride (INVanz/Sodium Chloride) 55 ml @ 110 mls/hr Q24H IV 12/02/16 21:00 12/03/16 23:59 12/02/16 20:03 Hydromorphone HCl (Dilaudid) 1 mg Q4H PRN IVP PAIN 1-6 12/02/16 02:00 12/09/16 01:59 Hydromorphone HCl (Dilaudid) 2 mg Q4H PRN IVP Severe Pain (Pain Scale 7-10) 12/02/16 02:00 12/09/16 01:59 Lorazepam (Ativan 2mg/ml 1ml) 2 mg Q2H PRN IV For Anxiety 12/02/16 00:00 12/09/16 00:00 Metoclopramide HCl (Reglan) 10 mg EVERY 8 HOURS IVP 12/02/16 06:00 01/01/17 05:59 12/03/16 05:09 Ondansetron HCl (Zofran) 4 mg Q6H PRN IVP Nausea & Vomiting 12/01/16 23:00 12/31/16 22:59 Pantoprazole (Protonix) 40 mg DAILY IVP 12/02/16 09:00 01/01/17 08:59 12/03/16 09:05 Polyethylene Glycol (Miralax) 17 gm DAILYPRN PRN ORAL Constipation 12/02/16 17:00 01/01/17 16:59 Senna/Docusate Sodium (Kristen-Colace) 1 ea TWICE A DAY ORAL 12/02/16 09:00 01/01/17 08:59 Jefferson Pastor M.D. Dec 03, 2016 12:22
[2016-12-03 12:57] VITALS: BP 116/82
--- NOTE | 2016-12-03 13:00 | General Surgery Progress Note ---
General Surgery-Progress Note Subjective Symptoms: improved, BM Objective Last 24 Hour Vital Signs Date Time Temp Pulse Resp B/P Pulse Ox O2 Delivery O2 Flow Rate FiO2 12/03/16 08:52 99.1 89 18 124/98 94 Nasal Cannula 2.0 12/03/16 08:02 85 12/03/16 07:09 92 20 Nasal Cannula 2.0 12/03/16 07:09 Nasal Cannula 2.0 28 12/03/16 07:09 96 Nasal Cannula 2.0 28 12/03/16 04:00 94 12/03/16 04:00 98.2 96 20 153/81 Nasal Cannula 2.0 12/03/16 00:00 98.1 98 18 154/88 94 Nasal Cannula 2.0 12/03/16 00:00 97 12/02/16 20:52 98.1 12/02/16 20:52 98.1 12/02/16 20:00 112 12/02/16 20:00 99.5 113 20 158/96 Nasal Cannula 1.5 97 12/02/16 19:13 Nasal Cannula 2.0 28 12/02/16 19:12 97 Nasal Cannula 2.0 28 12/02/16 19:12 108 22 Nasal Cannula 2.0 12/02/16 16:00 112 I&O Intake and Output 12/02/16 12/03/16 19:00 07:00 Intake Total 360 ml 360 ml Output Total 380 ml 545 ml Balance -20 ml -185 ml IV Total 360 ml 360 ml Output Urine Total 300 ml Stool Total 220 ml 100 ml Drainage Total 160 ml 145 ml # Bowel Movements 95 Dressing: dry Drains: misty Respiratory: clear Abdomen: soft, distended, tenderness, present bowel sounds Extremities: no tenderness Laboratory Tests Test 12/03/16 06:00 White Blood Count 11.4 K/UL (4.8-10.8) H Red Blood Count 3.09 M/UL (4.70-6.10) L Hemoglobin 9.9 G/DL (14.2-18.0) L Hematocrit 31.7 % (42.0-52.0) L Mean Corpuscular Volume 103 FL (80-99) H Mean Corpuscular Hemoglobin 32.2 PG (27.0-31.0) H Mean Corpuscular Hemoglobin Concent 31.4 G/DL (32.0-36.0) L Red Cell Distribution Width 11.9 % (11.6-14.8) Platelet Count 351 K/UL (150-450) Mean Platelet Volume 6.0 FL (6.5-10.1) L Neutrophils (%) (Auto) 76.9 % (45.0-75.0) H Lymphocytes (%) (Auto) 14.0 % (20.0-45.0) L Monocytes (%) (Auto) 6.3 % (1.0-10.0) Eosinophils (%) (Auto) 1.7 % (0.0-3.0) Basophils (%) (Auto) 1.1 % (0.0-2.0) Sodium Level 151 mEQ/L (135-145) H Potassium Level 3.9 mEQ/L (3.4-4.9) Chloride Level 114 mEQ/L (98-107) H Carbon Dioxide Level 27 mEQ/L (20-30) Anion Gap 10 (5-15) Blood Urea Nitrogen 15 mg/dL (7-23) Creatinine 1.0 mg/dL (0.7-1.2) Estimat Glomerular Filtration Rate mL/min (>60) Glucose Level 133 mg/dL (74-106) H Calcium Level 8.5 mg/dL (8.6-10.2) L Phosphorus Level 3.2 mg/dL (2.5-4.8) Magnesium Level 1.7 mg/dL (1.7-2.5) Total Bilirubin < 0.2 mg/dL (0.0-1.2) Aspartate Amino Transf (AST/SGOT) 47 U/L (5-40) H Alanine Aminotransferase (ALT/SGPT) 24 U/L (3-41) Alkaline Phosphatase 106 U/L (40-129) Total Protein 6.2 g/dL (6.6-8.7) L Albumin 2.7 g/dL (3.5-5.2) L Globulin 3.5 g/dL Albumin/Globulin Ratio 0.7 (1.0-2.7) L Assessment Post-op Diagnosis Ischemia of sigmoid colon Plan Additional Comments WILMA WOO Dec 03, 2016 13:00
--- NOTE | 2016-12-03 15:07 | General Progress Note ---
Assessment/Plan Status: stable Assessment/Plan Acute renal failure- ? Undelying CKD Cr lower 2.6 to 1.9 NOW WNL Others: (1) Respiratory failure, now self extubated (2) Sepsis (3) Cardiomyopathy (4) sigmoidectomy (5) Status post exploratory laparotomy (6) COPD (chronic obstructive pulmonary disease) Plan: Slow Hydrate- Post op care- Post extubation care Respiratory support- Avoid Nephrotoxics- Monitor renal parameters, optimize pulm and cardiac status urine studies per orders Subjective ROS Limited/Unobtainable: No Constitutional: Reports: malaise Allergies: Coded Allergies: PENICILLINS (Verified Allergy, Unknown, 03/08/15) Objective Last 24 Hour Vital Signs Date Time Temp Pulse Resp B/P Pulse Ox O2 Delivery O2 Flow Rate FiO2 12/03/16 12:57 99.2 89 18 116/82 94 Nasal Cannula 2.0 12/03/16 11:55 90 12/03/16 08:52 99.1 89 18 124/98 94 Nasal Cannula 2.0 12/03/16 08:02 85 12/03/16 07:09 92 20 Nasal Cannula 2.0 12/03/16 07:09 Nasal Cannula 2.0 28 12/03/16 07:09 96 Nasal Cannula 2.0 28 12/03/16 04:00 94 12/03/16 04:00 98.2 96 20 153/81 Nasal Cannula 2.0 12/03/16 00:00 98.1 98 18 154/88 94 Nasal Cannula 2.0 12/03/16 00:00 97 12/02/16 20:52 98.1 12/02/16 20:52 98.1 12/02/16 20:00 112 12/02/16 20:00 99.5 113 20 158/96 Nasal Cannula 1.5 97 12/02/16 19:13 Nasal Cannula 2.0 28 12/02/16 19:12 97 Nasal Cannula 2.0 28 12/02/16 19:12 108 22 Nasal Cannula 2.0 12/02/16 16:00 112 Intake and Output 12/02/16 12/03/16 19:00 07:00 Intake Total 360 ml 360 ml Output Total 380 ml 545 ml Balance -20 ml -185 ml IV Total 360 ml 360 ml Output Urine Total 300 ml Stool Total 220 ml 100 ml Drainage Total 160 ml 145 ml # Bowel Movements 95 Laboratory Tests 12/03/16 06:00: White Blood Count 11.4H, Red Blood Count 3.09L, Hemoglobin 9.9L, Hematocrit 31.7L, Mean Corpuscular Volume 103H, Mean Corpuscular Hemoglobin 32.2H, Mean Corpuscular Hemoglobin Concent 31.4L, Red Cell Distribution Width 11.9, Platelet Count 351, Mean Platelet Volume 6.0L, Neutrophils (%) (Auto) 76.9H, Lymphocytes (%) (Auto) 14.0L, Monocytes (%) (Auto) 6.3, Eosinophils (%) (Auto) 1.7, Basophils (%) (Auto) 1.1, Sodium Level 151H, Potassium Level 3.9, Chloride Level 114H, Carbon Dioxide Level 27, Anion Gap 10, Blood Urea Nitrogen 15, Creatinine 1.0, Estimat Glomerular Filtration Rate , Glucose Level 133H, Calcium Level 8.5L, Phosphorus Level 3.2, Magnesium Level 1.7, Total Bilirubin < 0.2, Aspartate Amino Transf (AST/SGOT) 47H, Alanine Aminotransferase (ALT/SGPT ) 24, Alkaline Phosphatase 106, Total Protein 6.2L, Albumin 2.7L, Globulin 3.5, Albumin/Globulin Ratio 0.7L Height (Feet): 5 Height (Inches): 11.00 Weight (Pounds): 195 General Appearance: no apparent distress Cardiovascular: tachycardia - mild Respiratory/Chest: decreased breath sounds Objective PE not changed LESLIE VILLEDA Dec 03, 2016 15:07
[2016-12-03 15:18] VITALS: BP 118/77
[2016-12-03 20:00] VITALS: BP 118/68
[2016-12-03] MEDS: Ertapenem 1 GM in NS 55 ML IV SCH (20:57)
--- NOTE | 2016-12-03 22:00 | Consultation ---
DATE OF CONSULTATION: 12/03/2016 CONSULTING PHYSICIAN: Trey Pollock M.D. REFERRING PHYSICIAN: Brian Vance M.D. CHIEF COMPLAINT: Failure to thrive. HISTORY OF PRESENT ILLNESS: This is an unfortunate male who was admitted to the hospital had a bowel obstruction, requiring surgery. Surgical pathology came back pseudomembranous and also ischemic colon. The patient is status post, as I mentioned, surgery and colostomy. The patient is overall improving, but the patient is not eating, keeping food in the mouth. The patient needs a long-term enteral feeding, so GI consult was requested for evaluation of possible PEG. PAST MEDICAL HISTORY: 1. Cardiomyopathy. 2. COPD. 3. Hypertension. 4. Status post recent surgery in this admission with sigmoidectomy and colostomy placement. ALLERGIES: To penicillin. MEDICATIONS: Please see medication reconciliation list. SOCIAL HISTORY: Unable to obtain. FAMILY HISTORY: Unable to obtain. REVIEW OF SYSTEMS: Unable to obtain. PAST SURGICAL HISTORY: See above. PHYSICAL EXAMINATION: VITAL SIGNS: Temperature 99.1, pulse 89, respirations 18, and blood pressure is 124/98. HEENT: Normocephalic and atraumatic. Sclerae anicteric. NECK: Supple. No lymphadenopathy. CARDIOVASCULAR: Regular rate and rhythm. Plus S1 and S2. No obvious murmur. LUNGS: Decreased breath sounds bilaterally based on the supine exam ABDOMEN: Postsurgical. Soft with a colostomy bag in place with draining stool. No rebound. No guarding. No peritoneal signs. EXTREMITIES: No cyanosis. No clubbing. No edema. LABORATORY DATA: Sodium 151, potassium 3.9, BUN is 15, and creatinine is 1. White count is 11.2, hemoglobin 9.9, hematocrit 31.7, and platelet count is 351,000. ASSESSMENT AND PLAN: This is a 70 years old male with failure to thrive after having a big surgery. PLAN: Plan to consider PEG on Monday. Make the patient NPO after midnight tomorrow night. We will discuss with the family and if they agree, we will plan for Monday. I want to thank Dr. Vance for this kind referral. Trey Monica Pollock DR: YUAN JOB#: [id number] CC: Brian Vance M.D.; Fax#: [phone]
[2016-12-04] VITALS (7 sets, daily range): BP systolic 102–124; BP diastolic 61–83
[2016-12-04] MEDS: Metoclopramide 10mg/2ml Inj IVP SCH ×3 (05:42→21:23)
--- NOTE | 2016-12-04 08:49 | General Progress Note ---
Assessment/Plan Problem List: (1) UTI (urinary tract infection) ICD Codes: N39.0 - Urinary tract infection, site not specified SNOMED: 43710881 Qualifiers: Qualified Codes: N30.01 - Acute cystitis with hematuria (2) COPD (chronic obstructive pulmonary disease) ICD Codes: J44.9 - Chronic obstructive pulmonary disease, unspecified SNOMED: 39689738 (3) Cardiomyopathy ICD Codes: I42.9 - Cardiomyopathy, unspecified SNOMED: 99042318 (4) HTN (hypertension) ICD Codes: I10 - Essential (primary) hypertension SNOMED: 38308073 (5) Diabetes ICD Codes: E11.9 - Type 2 diabetes mellitus without complications SNOMED: 45928641 (6) sigmoidectomy (7) Status post exploratory laparotomy ICD Codes: Z98.890 - Other specified postprocedural states SNOMED: 48620322, 76977902, 183536814 Assessment/Plan pend PEG for tomorrow Subjective ROS Limited/Unobtainable: No Allergies: Coded Allergies: PENICILLINS (Verified Allergy, Unknown, 03/08/15) Objective Last 24 Hour Vital Signs Date Time Temp Pulse Resp B/P Pulse Ox O2 Delivery O2 Flow Rate FiO2 12/04/16 07:08 Nasal Cannula 2.0 12/04/16 07:06 98 Nasal Cannula 2.0 12/04/16 07:02 88 16 Room Air 12/04/16 04:00 98.2 85 21 124/83 94 Nasal Cannula 2.0 12/04/16 04:00 81 12/04/16 00:00 98.2 87 18 116/73 99 Nasal Cannula 2.0 12/04/16 00:00 82 12/03/16 20:00 98.4 86 20 118/68 95 Nasal Cannula 2.0 12/03/16 20:00 85 12/03/16 19:30 Nasal Cannula 2.0 28 12/03/16 19:30 89 20 Nasal Cannula 2.0 28 12/03/16 19:30 97 Nasal Cannula 2.0 28 12/03/16 16:00 92 12/03/16 15:18 98.3 101 19 118/77 97 Nasal Cannula 2.0 12/03/16 12:57 99.2 89 18 116/82 94 Nasal Cannula 2.0 12/03/16 11:55 90 12/03/16 08:52 99.1 89 18 124/98 94 Nasal Cannula 2.0 Intake and Output 12/03/16 12/04/16 19:00 07:00 Intake Total 360 ml 953 ml Output Total 320 ml 320 ml Balance 40 ml 633 ml IV Total 360 ml 953 ml Output Urine Total 300 ml 250 ml Stool Total 70 ml Drainage Total 20 ml # Bowel Movements 112 1 Height (Feet): 5 Height (Inches): 11.00 Weight (Pounds): 195 General Appearance: no apparent distress EENT: normal ENT inspection Neck: supple Cardiovascular: normal rate Respiratory/Chest: decreased breath sounds Abdomen: normal bowel sounds, non tender, soft Extremities: non-tender HUAN LANDON Dec 04, 2016 08:49
[2016-12-04] MEDS: Pericolace tab ORAL SCH ×2 (09:00→17:34)
--- NOTE | 2016-12-04 09:15 | General Progress Note ---
Assessment/Plan Status: stable Assessment/Plan Acute renal failure- ? Undelying CKD Cr lower 2.6 to 1.9 NOW WNL Others: (1) Respiratory failure, now self extubated (2) Sepsis (3) Cardiomyopathy (4) sigmoidectomy (5) Status post exploratory laparotomy (6) COPD (chronic obstructive pulmonary disease) Plan: Slow Hydrate- Post op care- Post extubation care Respiratory support- Avoid Nephrotoxics- Monitor renal parameters, optimize pulm and cardiac status urine studies per orders Subjective ROS Limited/Unobtainable: No Allergies: Coded Allergies: PENICILLINS (Verified Allergy, Unknown, 03/08/15) Objective Last 24 Hour Vital Signs Date Time Temp Pulse Resp B/P Pulse Ox O2 Delivery O2 Flow Rate FiO2 12/04/16 08:00 97.2 80 20 114/76 95 Nasal Cannula 2.0 12/04/16 07:08 Nasal Cannula 2.0 12/04/16 07:06 98 Nasal Cannula 2.0 12/04/16 07:02 88 16 Room Air 12/04/16 04:00 98.2 85 21 124/83 94 Nasal Cannula 2.0 12/04/16 04:00 81 12/04/16 00:00 98.2 87 18 116/73 99 Nasal Cannula 2.0 12/04/16 00:00 82 12/03/16 20:00 98.4 86 20 118/68 95 Nasal Cannula 2.0 12/03/16 20:00 85 12/03/16 19:30 Nasal Cannula 2.0 28 12/03/16 19:30 89 20 Nasal Cannula 2.0 28 12/03/16 19:30 97 Nasal Cannula 2.0 28 12/03/16 16:00 92 12/03/16 15:18 98.3 101 19 118/77 97 Nasal Cannula 2.0 12/03/16 12:57 99.2 89 18 116/82 94 Nasal Cannula 2.0 12/03/16 11:55 90 Intake and Output 12/03/16 12/04/16 19:00 07:00 Intake Total 360 ml 953 ml Output Total 320 ml 320 ml Balance 40 ml 633 ml IV Total 360 ml 953 ml Output Urine Total 300 ml 250 ml Stool Total 70 ml Drainage Total 20 ml # Bowel Movements 112 1 Height (Feet): 5 Height (Inches): 11.00 Weight (Pounds): 195 General Appearance: no apparent distress Objective PE not changed LESLIE VILLEDA Dec 04, 2016 09:14
[2016-12-04] MEDS: Pantoprazole Inj IVP SCH (09:32)
[2016-12-04] MEDS: Enoxaparin 40mg Inj SUBQ SCH (09:33)
--- NOTE | 2016-12-04 11:25 | Pulmonology Progress Note ---
Assessment/Plan Problems: (1) sigmoidectomy (2) Respiratory failure (3) Sepsis (4) Cardiomyopathy (5) Status post exploratory laparotomy (6) COPD (chronic obstructive pulmonary disease) Assessment/Plan not able to eat will need Gtube or comfort care change iv fluid to d5w check electroltyes check labs in am Subjective ROS Limited/Unobtainable: No Constitutional: Reports: no symptoms HEENT: Repors: no symptoms Respiratory: Reports: no symptoms Cardiovascular: Reports: no symptoms Gastrointestinal/Abdominal: Reports: no symptoms Allergies: Coded Allergies: PENICILLINS (Verified Allergy, Unknown, 03/08/15) Objective Last 24 Hour Vital Signs Date Time Temp Pulse Resp B/P Pulse Ox O2 Delivery O2 Flow Rate FiO2 12/04/16 08:00 97.2 80 20 114/76 95 Nasal Cannula 2.0 12/04/16 08:00 81 12/04/16 07:08 Nasal Cannula 2.0 12/04/16 07:06 98 Nasal Cannula 2.0 12/04/16 07:02 88 16 Room Air 12/04/16 04:00 98.2 85 21 124/83 94 Nasal Cannula 2.0 12/04/16 04:00 81 12/04/16 00:00 98.2 87 18 116/73 99 Nasal Cannula 2.0 12/04/16 00:00 82 12/03/16 20:00 98.4 86 20 118/68 95 Nasal Cannula 2.0 12/03/16 20:00 85 12/03/16 19:30 Nasal Cannula 2.0 28 12/03/16 19:30 89 20 Nasal Cannula 2.0 28 12/03/16 19:30 97 Nasal Cannula 2.0 28 12/03/16 16:00 92 12/03/16 15:18 98.3 101 19 118/77 97 Nasal Cannula 2.0 12/03/16 12:57 99.2 89 18 116/82 94 Nasal Cannula 2.0 12/03/16 11:55 90 Intake and Output 12/03/16 12/04/16 19:00 07:00 Intake Total 360 ml 953 ml Output Total 320 ml 320 ml Balance 40 ml 633 ml IV Total 360 ml 953 ml Output Urine Total 300 ml 250 ml Stool Total 70 ml Drainage Total 20 ml # Bowel Movements 112 1 General Appearance: WD/WN HEENT: normocephalic, atraumatic Respiratory/Chest: chest wall non-tender, lungs clear Cardiovascular: normal peripheral pulses, normal rate Abdomen: normal bowel sounds, no organomegaly Current Medications Medications (Trade) Dose Ordered Sig/Ady Route PRN Reason Start Time Stop Time Status Last Admin Dose Admin Acetaminophen (Tylenol) 650 mg Q4H PRN ORAL fever 12/02/16 01:00 01/01/17 00:59 Acetaminophen 650 mg 650 mg Q4H PRN RECTAL Mild Pain/Fever 12/02/16 20:21 01/01/17 20:20 12/02/16 20:22 Albuterol/ Ipratropium (DuoNeb 0.5-3(2.5)mg/3ml) 3 ml Q4H PRN HHN Shortness of Breath 12/02/16 01:00 12/07/16 00:59 Dextrose (D5W 1000ml) 1,000 ml @ 75 mls/hr [id number] IV 12/03/16 10:30 01/02/17 10:29 12/03/16 23:50 Enoxaparin Sodium (Lovenox) 40 mg DAILY SUBQ 12/02/16 09:00 01/01/17 08:59 12/04/16 09:33 Hydromorphone HCl (Dilaudid) 1 mg Q4H PRN IVP PAIN 1-6 12/02/16 02:00 12/09/16 01:59 Hydromorphone HCl (Dilaudid) 2 mg Q4H PRN IVP Severe Pain (Pain Scale 7-10) 12/02/16 02:00 12/09/16 01:59 Lorazepam (Ativan 2mg/ml 1ml) 2 mg Q2H PRN IV For Anxiety 12/02/16 00:00 12/09/16 00:00 Metoclopramide HCl (Reglan) 10 mg EVERY 8 HOURS IVP 12/02/16 06:00 01/01/17 05:59 12/04/16 05:42 Ondansetron HCl (Zofran) 4 mg Q6H PRN IVP Nausea & Vomiting 12/01/16 23:00 12/31/16 22:59 Pantoprazole (Protonix) 40 mg DAILY IVP 12/02/16 09:00 01/01/17 08:59 12/04/16 09:32 Polyethylene Glycol (Miralax) 17 gm DAILYPRN PRN ORAL Constipation 12/02/16 17:00 01/01/17 16:59 Senna/Docusate Sodium (Kristen-Colace) 1 ea TWICE A DAY ORAL 12/02/16 09:00 01/01/17 08:59 BUCKY WOLF Dec 04, 2016 11:25
[2016-12-04] MEDS ORDERED: DuoNeb 0.5-3(2.5)mg/3ml neb HHN PRN (14:00)
[2016-12-04] MEDS ORDERED: LORazepam Inj 2mg/ml 1ml IV PRN (14:00)
[2016-12-04] MEDS ORDERED: Acetaminophen 650 MG SUPP RECTAL PRN (14:00)
[2016-12-04] MEDS ORDERED: HYDROmorphone 1mg/ml Carpuject IVP PRN (14:00)
--- NOTE | 2016-12-04 14:25 | General Surgery Progress Note ---
General Surgery-Progress Note Subjective Symptoms: improved, BM Objective Last 24 Hour Vital Signs Date Time Temp Pulse Resp B/P Pulse Ox O2 Delivery O2 Flow Rate FiO2 12/04/16 12:00 84 12/04/16 12:00 98.9 84 18 114/72 98 Nasal Cannula 2.0 12/04/16 08:00 97.2 80 20 114/76 95 Nasal Cannula 2.0 12/04/16 08:00 81 12/04/16 07:08 Nasal Cannula 2.0 12/04/16 07:06 98 Nasal Cannula 2.0 12/04/16 07:02 88 16 Room Air 12/04/16 04:00 98.2 85 21 124/83 94 Nasal Cannula 2.0 12/04/16 04:00 81 12/04/16 00:00 98.2 87 18 116/73 99 Nasal Cannula 2.0 12/04/16 00:00 82 12/03/16 20:00 98.4 86 20 118/68 95 Nasal Cannula 2.0 12/03/16 20:00 85 12/03/16 19:30 Nasal Cannula 2.0 28 12/03/16 19:30 89 20 Nasal Cannula 2.0 28 12/03/16 19:30 97 Nasal Cannula 2.0 28 12/03/16 16:00 92 12/03/16 15:18 98.3 101 19 118/77 97 Nasal Cannula 2.0 I&O Intake and Output 12/03/16 12/04/16 19:00 07:00 Intake Total 360 ml 953 ml Output Total 320 ml 320 ml Balance 40 ml 633 ml IV Total 360 ml 953 ml Output Urine Total 300 ml 250 ml Stool Total 70 ml Drainage Total 20 ml # Bowel Movements 112 1 Wound: clean, intact Drains: none Respiratory: clear Abdomen: soft, distended, present bowel sounds Extremities: no tenderness Assessment Post-op Diagnosis Ischemia of sigmoid colon Plan Additional Comments feeding WILMA BANUELOS Dec 04, 2016 14:25
--- NOTE | 2016-12-04 15:37 | Infectious Diseases Prog Note ---
Assessment/Plan Assessment/Plan ASSESSMENT: 70-year-old male on s/p 7 days IV ertapenem completed yesterday for intrabadominal sepsis s/p ischemic colitis requiring sigmoidectomy on 11/27/16 , with negative blood cx from 11/28, negative peritoneal operative fluid from 11/27. WBC borderline yesterday, continue to monitor clinically. Sepsis, resolved Fever, resolved Leukocytosis, SP Ischemic colitis SP sigmoidectomy and colostomy on 11/27 s/p 7D ertapenem post op, completed 12/03/16 SP self extubation 11/30 GRETEL improving Seizure disorder Atrial fibrillation Anemia Hypertension Asthma BPH Diabetes Anemia PLAN: Monitor off abx. Monitor CBC. Monitor BMP. monitor temp curve Subjective Constitutional: Reports: no symptoms Allergies: Coded Allergies: PENICILLINS (Verified Allergy, Unknown, 03/08/15) Subjective afebrile o/n with Tmax 99.5F NGT clamped. formed stool passing from below. Objective Vital Signs Last 24 Hour Vital Signs Date Time Temp Pulse Resp B/P Pulse Ox O2 Delivery O2 Flow Rate FiO2 12/04/16 12:00 84 12/04/16 12:00 98.9 84 18 114/72 98 Nasal Cannula 2.0 12/04/16 08:00 97.2 80 20 114/76 95 Nasal Cannula 2.0 12/04/16 08:00 81 12/04/16 07:08 Nasal Cannula 2.0 12/04/16 07:06 98 Nasal Cannula 2.0 12/04/16 07:02 88 16 Room Air 12/04/16 04:00 98.2 85 21 124/83 94 Nasal Cannula 2.0 12/04/16 04:00 81 12/04/16 00:00 98.2 87 18 116/73 99 Nasal Cannula 2.0 12/04/16 00:00 82 12/03/16 20:00 98.4 86 20 118/68 95 Nasal Cannula 2.0 12/03/16 20:00 85 12/03/16 19:30 Nasal Cannula 2.0 28 12/03/16 19:30 89 20 Nasal Cannula 2.0 28 12/03/16 19:30 97 Nasal Cannula 2.0 28 12/03/16 16:00 92 Height (Feet): 5 Height (Inches): 11.00 Weight (Pounds): 195 General Appearance: no acute distress HEENT: anicteric Respiratory/Chest: normal breath sounds Cardiovascular: normal rate, regular rhythm Abdomen: soft, non tender, other - abdominal dressing in place Extremities: no cyanosis, no clubbing, no edema Skin: no rash Lymphatic: no neck adenopathy, no groin adenopathy Objective NGT in place clamped. scant bloody oral suction. PIV c/'d/i. tachycardic with RIP. abd with midline large bulky dressing in place, ostomy in place. abd not distended, not tense. Current Medications Medications (Trade) Dose Ordered Sig/Ady Route PRN Reason Start Time Stop Time Status Last Admin Dose Admin Acetaminophen (Tylenol) 650 mg Q4H PRN ORAL fever 12/04/16 14:00 01/03/17 13:59 Acetaminophen (Tylenol) 650 mg Q4H PRN RECTAL Mild Pain/Fever 12/04/16 14:00 01/03/17 13:59 Albuterol/ Ipratropium (DuoNeb 0.5-3(2.5)mg/3ml) 3 ml Q4H PRN HHN Shortness of Breath 12/04/16 14:00 12/09/16 13:59 Dextrose (D5W 1000ml) 1,000 ml @ 75 mls/hr [id number] IV 12/04/16 14:00 01/03/17 13:59 12/04/16 14:27 Enoxaparin Sodium (Lovenox) 40 mg DAILY SUBQ 12/05/16 09:00 01/04/17 08:59 Hydromorphone HCl (Dilaudid) 1 mg Q4H PRN IVP PAIN 1-6 12/04/16 14:00 12/11/16 13:59 Hydromorphone HCl (Dilaudid) 2 mg Q4H PRN IVP Severe Pain (Pain Scale 7-10) 12/04/16 14:00 12/11/16 13:59 Lorazepam (Ativan 2mg/ml 1ml) 2 mg Q2H PRN IV For Anxiety 12/04/16 14:00 12/11/16 13:59 Metoclopramide HCl (Reglan) 10 mg EVERY 8 HOURS IVP 12/04/16 14:00 01/03/17 13:59 12/04/16 14:27 Ondansetron HCl (Zofran) 4 mg Q6H PRN IVP Nausea & Vomiting 12/04/16 17:00 01/03/17 16:59 Pantoprazole (Protonix) 40 mg DAILY IVP 12/05/16 09:00 01/04/17 08:59 Polyethylene Glycol (Miralax) 17 gm DAILYPRN PRN ORAL Constipation 12/04/16 17:00 01/03/17 16:59 Senna/Docusate Sodium (Kristen-Colace) 1 ea TWICE A DAY ORAL 12/04/16 18:00 01/03/17 17:59 Jefferson Pastor M.D. Dec 04, 2016 15:37
[2016-12-04] MEDS ORDERED: Miralax 17gm pkt ORAL PRN (17:00)
[2016-12-05 04:00] VITALS: BP 120/75
[2016-12-05] MEDS: Metoclopramide 10mg/2ml Inj IVP SCH ×3 (05:35→22:53)
--- NOTE | 2016-12-05 06:55 | Anethesia Preoperative Eval ---
Anesthesia Pre-op PMH/ROS General Date of Evaluation: Dec 05, 2016 Time of Evaluation: 06:47 Anesthesiologist: jax ASA Score: ASA 3 Mallampati Score Class I : Soft palate, uvula, fauces, pillars visible Class II: Soft palate, uvula, fauces visible Class III: Soft palate, base of uvula visible Class IV: Only hard plate visible Mallampati Classification: Class II Surgeon: talisha Diagnosis: anemia Surgical Procedure: egd/peg Social History: smoking - nonsmoker Family History: no anesthesia problems Allergies: Coded Allergies: PENICILLINS (Verified Allergy, Unknown, 03/08/15) Medications: see eMAR Past Medical History Cardiovascular: Reports: HTN, arrhythmia, other - pacemaker, chf Pulmonary: Reports: asthma Neurologic/Psychiatric: Reports: CVA, other - seizure Endocrine: Reports: DM Hematology/Immune: Reports: anemia Anesthesia Pre-op Phys. Exam Physician Exam Last Vital Signs Date Time Temp Pulse Resp B/P Pulse Ox O2 Delivery O2 Flow Rate FiO2 12/05/16 04:38 91 18 Nasal Cannula 2.0 28 12/05/16 04:37 97 12/05/16 04:00 98.4 120/75 Airway Exam Mallampati Score: Class III Anesthesia Pre-op A/P Labs Labs Test 12/03/16 06:00 White Blood Count 11.4 K/UL (4.8-10.8) Red Blood Count 3.09 M/UL (4.70-6.10) Hemoglobin 9.9 G/DL (14.2-18.0) Hematocrit 31.7 % (42.0-52.0) Mean Corpuscular Volume 103 FL (80-99) Mean Corpuscular Hemoglobin 32.2 PG (27.0-31.0) Mean Corpuscular Hemoglobin Concent 31.4 G/DL (32.0-36.0) Red Cell Distribution Width 11.9 % (11.6-14.8) Platelet Count 351 K/UL (150-450) Mean Platelet Volume 6.0 FL (6.5-10.1) Neutrophils (%) (Auto) 76.9 % (45.0-75.0) Lymphocytes (%) (Auto) 14.0 % (20.0-45.0) Monocytes (%) (Auto) 6.3 % (1.0-10.0) Eosinophils (%) (Auto) 1.7 % (0.0-3.0) Basophils (%) (Auto) 1.1 % (0.0-2.0) Sodium Level 151 mEQ/L (135-145) Potassium Level 3.9 mEQ/L (3.4-4.9) Chloride Level 114 mEQ/L (98-107) Carbon Dioxide Level 27 mEQ/L (20-30) Anion Gap 10 (5-15) Blood Urea Nitrogen 15 mg/dL (7-23) Creatinine 1.0 mg/dL (0.7-1.2) Estimat Glomerular Filtration Rate mL/min (>60) Glucose Level 133 mg/dL (74-106) Calcium Level 8.5 mg/dL (8.6-10.2) Phosphorus Level 3.2 mg/dL (2.5-4.8) Magnesium Level 1.7 mg/dL (1.7-2.5) Total Bilirubin < 0.2 mg/dL (0.0-1.2) Aspartate Amino Transf (AST/SGOT) 47 U/L (5-40) Alanine Aminotransferase (ALT/SGPT) 24 U/L (3-41) Alkaline Phosphatase 106 U/L (40-129) Total Protein 6.2 g/dL (6.6-8.7) Albumin 2.7 g/dL (3.5-5.2) Globulin 3.5 g/dL Albumin/Globulin Ratio 0.7 (1.0-2.7) Risk Assessment & Plan Plan: egsyl/JULIAN Becerra Dec 05, 2016 06:55
[2016-12-05 08:00] VITALS: BP 163/99
[2016-12-05] MEDS: Pantoprazole Inj IVP SCH (08:08)
[2016-12-05] MEDS: Pericolace tab ORAL SCH ×2 (08:10→17:10)
[2016-12-05] MEDS: Enoxaparin 40mg Inj SUBQ SCH (08:22)
--- NOTE | 2016-12-05 11:44 | General Progress Note ---
Assessment/Plan Status: stable - from renal stand Assessment/Plan Acute renal failure- ? Undelying CKD Cr lower 2.6 to 1.9 NOW WNL Others: (1) Respiratory failure, now self extubated (2) Sepsis (3) Cardiomyopathy (4) sigmoidectomy (5) Status post exploratory laparotomy (6) COPD (chronic obstructive pulmonary disease) Plan: no labs Slow Hydrate- Post op care- Post extubation care Respiratory support- Avoid Nephrotoxics- Monitor renal parameters, optimize pulm and cardiac status urine studies per orders Subjective ROS Limited/Unobtainable: No Constitutional: Reports: malaise Allergies: Coded Allergies: PENICILLINS (Verified Allergy, Unknown, 03/08/15) Objective Last 24 Hour Vital Signs Date Time Temp Pulse Resp B/P Pulse Ox O2 Delivery O2 Flow Rate FiO2 12/05/16 08:00 98.8 95 19 163/99 95 Room Air 12/05/16 07:45 95 Room Air 21 12/05/16 07:44 92 18 Room Air 21 12/05/16 04:38 91 18 Nasal Cannula 2.0 12/05/16 04:37 97 Nasal Cannula 2.0 28 12/05/16 04:37 Nasal Cannula 2.0 28 12/05/16 04:00 98.4 89 18 120/75 93 Room Air 12/04/16 23:39 99.0 86 18 102/61 94 Room Air 12/04/16 20:00 98.4 85 18 112/68 93 Room Air 12/04/16 15:40 98.2 88 20 113/76 98 Nasal Cannula 2.0 12/04/16 12:00 84 12/04/16 12:00 98.9 84 18 114/72 98 Nasal Cannula 2.0 Intake and Output 12/04/16 12/05/16 19:00 07:00 Intake Total 675 ml 900 ml Output Total 620 ml 800 ml Balance 55 ml 100 ml IV Total 675 ml 900 ml Output Urine Total 200 ml 550 ml Stool Total 200 ml 250 ml Other 220 ml # Bowel Movements 2 Height (Feet): 5 Height (Inches): 11.00 Weight (Pounds): 190 General Appearance: no apparent distress Objective PE not changed LESLIE VILLEDA Dec 05, 2016 11:44
[2016-12-05 12:00] VITALS: BP 149/86
--- NOTE | 2016-12-05 12:14 | Cardiology Report ---
APPROVED REPORT EXAM: Two-dimensional and M-mode echocardiogram with Doppler and color Doppler. INDICATION Left Ventricular Function Technically difficult study due to poor acoustic windows and patient on ventilator. Study quality precludes accurate assessment of regional wall motion. M-mode measurements could not be obtained due to poor acoustic windows. Normal left ventricular chamber size, systolic function and wall motion. Left ventricular ejection fraction estimated to be 60 %. Mild left ventricular hypertrophy. Anterior Echo-free space, may be due to pericardial fat or effusion. Mild right atrial enlargement. Moderate left atrial enlargement. Right ventricular chamber size is within normal limits. Mild focal aortic valve sclerosis with adequate cusp excursion. Mildly thickened mitral valve leaflets with normal excursion. Mild mitral annulus and aortic root calcification. Pulmonic valve not well visualized. Normal tricuspid valve structure. IVC is normal in size with physiologic collapse. A color flow and spectral Doppler study was performed and revealed: No aortic regurgitation. LVOT obstruction with late peaking profile. Peak aortic valve gradient of 50 mmHg and a mean of 18 mmHg. Trace mitral regurgitation. Mitral diastolic velocities suggest reduced left ventricular relaxation (Grade I). Mild tricuspid regurgitation. Tricuspid systolic velocities suggests peak right ventricular systolic pressure of 44 mmHg, consistent with mild pulmonary hypertension. No pulmonic regurgitation present.
--- NOTE | 2016-12-05 12:42 | General Surgery Progress Note ---
General Surgery-Progress Note Subjective Symptoms: improved, BM Objective Last 24 Hour Vital Signs Date Time Temp Pulse Resp B/P Pulse Ox O2 Delivery O2 Flow Rate FiO2 12/05/16 08:00 98.8 95 19 163/99 95 Room Air 12/05/16 07:45 95 Room Air 21 12/05/16 07:44 92 18 Room Air 12/05/16 04:38 91 18 Nasal Cannula 2.0 12/05/16 04:37 97 Nasal Cannula 2.0 12/05/16 04:37 Nasal Cannula 2.0 12/05/16 04:00 98.4 89 18 120/75 93 Room Air 12/04/16 23:39 99.0 86 18 102/61 94 Room Air 12/04/16 20:00 98.4 85 18 112/68 93 Room Air 12/04/16 15:40 98.2 88 20 113/76 98 Nasal Cannula 2.0 I&O Intake and Output 12/04/16 12/05/16 19:00 07:00 Intake Total 675 ml 900 ml Output Total 620 ml 800 ml Balance 55 ml 100 ml IV Total 675 ml 900 ml Output Urine Total 200 ml 550 ml Stool Total 200 ml 250 ml Other 220 ml # Bowel Movements 2 Wound: clean, intact Drains: none Respiratory: clear Abdomen: soft, distended, non-tender, present bowel sounds Extremities: no tenderness Assessment Post-op Diagnosis Ischemia of sigmoid colon Plan Additional Comments Per PCP WILMA BANUELOS Dec 05, 2016 12:42
[2016-12-05] MEDS ORDERED: Vancomycin 1 GM in D5W 275 ML IVPB ONE (13:00)
--- NOTE | 2016-12-05 13:41 | GI Progress Note ---
Assessment/Plan Problems: (1) Encounter for PEG (percutaneous endoscopic gastrostomy) ICD Codes: Z43.1 - Encounter for attention to gastrostomy SNOMED: 976977771, 750046029 (2) Dysphagia ICD Codes: R13.10 - Dysphagia, unspecified SNOMED: 27730377, 697504637 (3) Diabetes ICD Codes: E11.9 - Type 2 diabetes mellitus without complications SNOMED: 93167169 (4) Abdominal distention ICD Codes: R14.0 - Abdominal distension (gaseous) SNOMED: 82296996 (5) Sepsis ICD Codes: A41.9 - Sepsis, unspecified organism SNOMED: 38271892 Qualifiers: Qualified Codes: A41.9 - Sepsis, unspecified organism Status: unchanged Status Narrative Discussed with Dr. Pollock. Assessment/Plan PEG cancelled >> pt has POLST >> no artificial tube feedings >> spoke to sister today to confirm, she does not want PEG. ST eval reviewed >> LIQUIFIED PUREED LIKE NECTAR THICK LIQUIDS. adv diet per ST/Dietary push PO fu labs Subjective Subjective limited Objective Last 24 Hour Vital Signs Date Time Temp Pulse Resp B/P Pulse Ox O2 Delivery O2 Flow Rate FiO2 12/05/16 12:00 97.2 88 19 149/86 93 Room Air 12/05/16 08:00 98.8 95 19 163/99 95 Room Air 12/05/16 07:45 95 Room Air 12/05/16 07:44 92 18 Room Air 12/05/16 04:38 91 18 Nasal Cannula 2.0 12/05/16 04:37 97 Nasal Cannula 2.0 12/05/16 04:37 Nasal Cannula 2.0 12/05/16 04:00 98.4 89 18 120/75 93 Room Air 12/04/16 23:39 99.0 86 18 102/61 94 Room Air 12/04/16 20:00 98.4 85 18 112/68 93 Room Air 12/04/16 15:40 98.2 88 20 113/76 98 Nasal Cannula 2.0 Intake and Output 12/04/16 12/05/16 19:00 07:00 Intake Total 675 ml 900 ml Output Total 620 ml 800 ml Balance 55 ml 100 ml IV Total 675 ml 900 ml Output Urine Total 200 ml 550 ml Stool Total 200 ml 250 ml Other 220 ml # Bowel Movements 2 Height (Feet): 5 Height (Inches): 11.00 Weight (Pounds): 190 General Appearance: no apparent distress, alert Cardiovascular: normal rate Respiratory/Chest: no respiratory distress Abdominal Exam: normal bowel sounds, non tender, soft Sujey Kan N.P. Dec 05, 2016 13:41
--- NOTE | 2016-12-05 15:26 | Infectious Diseases Prog Note ---
Assessment/Plan Assessment/Plan ASSESSMENT: 70-year-old male on s/p 7 days IV ertapenem completed 12/03/16 for intrabadominal sepsis s/p ischemic colitis requiring sigmoidectomy on 11/27/16, with negative blood cx from 11/28, negative peritoneal operative fluid from 11/27. WBC borderline yesterday, no localizing signs, has been doing well post-op, continue to monitor clinically. Sepsis, resolved Fever, resolved Leukocytosis, SP Ischemic colitis SP sigmoidectomy and colostomy on 11/27 s/p 7D ertapenem post op, completed 12/03/16 SP self extubation 11/30 GRETEL improving Seizure disorder Atrial fibrillation Anemia Hypertension Asthma BPH Diabetes Anemia PLAN: Monitor off abx. Monitor CBC. Monitor BMP. monitor temp curve Stable for dispo to SNF from ID standpoint. Subjective ROS Limited/Unobtainable: Yes Allergies: Coded Allergies: PENICILLINS (Verified Allergy, Unknown, 03/08/15) Subjective Objective Vital Signs Last 24 Hour Vital Signs Date Time Temp Pulse Resp B/P Pulse Ox O2 Delivery O2 Flow Rate FiO2 12/05/16 12:00 97.2 88 19 149/86 93 Room Air 12/05/16 08:00 98.8 95 19 163/99 95 Room Air 12/05/16 07:45 95 Room Air 21 12/05/16 07:44 92 18 Room Air 21 12/05/16 04:38 91 18 Nasal Cannula 2.0 28 12/05/16 04:37 97 Nasal Cannula 2.0 28 12/05/16 04:37 Nasal Cannula 2.0 28 12/05/16 04:00 98.4 89 18 120/75 93 Room Air 12/04/16 23:39 99.0 86 18 102/61 94 Room Air 12/04/16 20:00 98.4 85 18 112/68 93 Room Air 12/04/16 15:40 98.2 88 20 113/76 98 Nasal Cannula 2.0 Height (Feet): 5 Height (Inches): 11.00 Weight (Pounds): 190 General Appearance: no acute distress HEENT: atraumatic, anicteric Respiratory/Chest: lungs clear Cardiovascular: normal peripheral pulses, normal rate Abdomen: soft, non tender, other - ostomy in place Genitourinary: normal external genitalia - no adams Skin: no rash, no lesions Objective NGT in place clamped. scant bloody oral suction. PIV c/'d/i. tachycardic with RIP. abd with midline large bulky dressing in place, ostomy in place. abd not distended, not tense. Current Medications Medications (Trade) Dose Ordered Sig/Ady Route PRN Reason Start Time Stop Time Status Last Admin Dose Admin Acetaminophen (Tylenol) 650 mg Q4H PRN ORAL fever 12/04/16 14:00 01/03/17 13:59 Acetaminophen (Tylenol) 650 mg Q4H PRN RECTAL Mild Pain/Fever 12/04/16 14:00 01/03/17 13:59 Albuterol/ Ipratropium (DuoNeb 0.5-3(2.5)mg/3ml) 3 ml Q4H PRN HHN Shortness of Breath 12/04/16 14:00 12/09/16 13:59 Dextrose (D5W 1000ml) 1,000 ml @ 75 mls/hr [id number] IV 12/04/16 14:00 01/03/17 13:59 12/05/16 03:33 Enoxaparin Sodium (Lovenox) 40 mg DAILY SUBQ 12/05/16 09:00 01/04/17 08:59 12/05/16 08:22 Hydromorphone HCl (Dilaudid) 1 mg Q4H PRN IVP PAIN 1-6 12/04/16 14:00 12/11/16 13:59 Hydromorphone HCl (Dilaudid) 2 mg Q4H PRN IVP Severe Pain (Pain Scale 7-10) 12/04/16 14:00 12/11/16 13:59 Lorazepam (Ativan 2mg/ml 1ml) 2 mg Q2H PRN IV For Anxiety 12/04/16 14:00 12/11/16 13:59 Metoclopramide HCl (Reglan) 10 mg EVERY 8 HOURS IVP 12/04/16 14:00 01/03/17 13:59 12/05/16 13:20 Ondansetron HCl (Zofran) 4 mg Q6H PRN IVP Nausea & Vomiting 12/04/16 17:00 01/03/17 16:59 Pantoprazole (Protonix) 40 mg DAILY IVP 7/10/17 09:00 01/04/17 08:59 12/05/16 08:08 Polyethylene Glycol (Miralax) 17 gm DAILYPRN PRN ORAL Constipation 12/04/16 17:00 01/03/17 16:59 Senna/Docusate Sodium (Kristen-Colace) 1 ea TWICE A DAY ORAL 12/04/16 18:00 01/03/17 17:59 12/05/16 08:10 Jefferson Pastor M.D. Dec 05, 2016 15:26
[2016-12-05] MEDS ORDERED: NS 275ml ONE ×2 (15:37→15:39)
[2016-12-05 16:00] VITALS: BP 154/77
--- NOTE | 2016-12-05 16:08 | Pulmonology Progress Note ---
Assessment/Plan Problems: (1) sigmoidectomy (2) Respiratory failure (3) Sepsis (4) Cardiomyopathy (5) Status post exploratory laparotomy (6) COPD (chronic obstructive pulmonary disease) Assessment/Plan not able to eat will need Gtube or comfort care d/w Dr. Harding, from [facility] [place], who agrees with Hospice. will order ethics and call for hospice evaluation Subjective ROS Limited/Unobtainable: No Constitutional: Reports: no symptoms HEENT: Repors: no symptoms Respiratory: Reports: no symptoms Allergies: Coded Allergies: PENICILLINS (Verified Allergy, Unknown, 03/08/15) Objective Last 24 Hour Vital Signs Date Time Temp Pulse Resp B/P Pulse Ox O2 Delivery O2 Flow Rate FiO2 12/05/16 16:00 98.4 65 19 154/77 95 Room Air 12/05/16 12:00 97.2 88 19 149/86 93 Room Air 12/05/16 08:00 98.8 95 19 163/99 95 Room Air 12/05/16 07:45 95 Room Air 21 12/05/16 07:44 92 18 Room Air 21 12/05/16 04:38 91 18 Nasal Cannula 2.0 28 12/05/16 04:37 97 Nasal Cannula 2.0 28 12/05/16 04:37 Nasal Cannula 2.0 28 12/05/16 04:00 98.4 89 18 120/75 93 Room Air 12/04/16 23:39 99.0 86 18 102/61 94 Room Air 12/04/16 20:00 98.4 85 18 112/68 93 Room Air Intake and Output 12/04/16 12/05/16 19:00 07:00 Intake Total 675 ml 900 ml Output Total 620 ml 800 ml Balance 55 ml 100 ml IV Total 675 ml 900 ml Output Urine Total 200 ml 550 ml Stool Total 200 ml 250 ml Other 220 ml # Bowel Movements 2 General Appearance: WD/WN HEENT: normocephalic, anicteric Respiratory/Chest: chest wall non-tender, normal breath sounds Cardiovascular: normal peripheral pulses, normal rate Abdomen: normal bowel sounds, no organomegaly Extremities: no cyanosis Skin: no rash 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 Lymphatic: no neck adenopathy Current Medications Medications (Trade) Dose Ordered Sig/Ady Route PRN Reason Start Time Stop Time Status Last Admin Dose Admin Acetaminophen (Tylenol) 650 mg Q4H PRN ORAL fever 12/04/16 14:00 01/03/17 13:59 Acetaminophen (Tylenol) 650 mg Q4H PRN RECTAL Mild Pain/Fever 12/04/16 14:00 01/03/17 13:59 Albuterol/ Ipratropium (DuoNeb 0.5-3(2.5)mg/3ml) 3 ml Q4H PRN HHN Shortness of Breath 12/04/16 14:00 12/09/16 13:59 Dextrose (D5W 1000ml) 1,000 ml @ 75 mls/hr [id number] IV 12/04/16 14:00 01/03/17 13:59 12/05/16 03:33 Enoxaparin Sodium (Lovenox) 40 mg DAILY SUBQ 12/05/16 09:00 01/04/17 08:59 12/05/16 08:22 Hydromorphone HCl (Dilaudid) 1 mg Q4H PRN IVP PAIN 1-6 12/04/16 14:00 12/11/16 13:59 Hydromorphone HCl (Dilaudid) 2 mg Q4H PRN IVP Severe Pain (Pain Scale 7-10) 12/04/16 14:00 12/11/16 13:59 Lorazepam (Ativan 2mg/ml 1ml) 2 mg Q2H PRN IV For Anxiety 12/04/16 14:00 12/11/16 13:59 Metoclopramide HCl (Reglan) 10 mg EVERY 8 HOURS IVP 12/04/16 14:00 01/03/17 13:59 12/05/16 13:20 Ondansetron HCl (Zofran) 4 mg Q6H PRN IVP Nausea & Vomiting 12/04/16 17:00 01/03/17 16:59 Pantoprazole (Protonix) 40 mg DAILY IVP 12/05/16 09:00 01/04/17 08:59 12/05/16 08:08 Polyethylene Glycol (Miralax) 17 gm DAILYPRN PRN ORAL Constipation 12/04/16 17:00 01/03/17 16:59 Senna/Docusate Sodium (Kristen-Colace) 1 ea TWICE A DAY ORAL 12/04/16 18:00 01/03/17 17:59 12/05/16 08:10 BUCKY WOLF Dec 05, 2016 16:08
[2016-12-05 19:57] VITALS: BP 157/80
[2016-12-06] VITALS: BP 157/87
[2016-12-06 04:00] VITALS: BP 154/85
[2016-12-06] MEDS: Metoclopramide 10mg/2ml Inj IVP SCH ×2 (06:23→14:22)
[2016-12-06 08:00] VITALS: BP 143/78
[2016-12-06] MEDS: Pericolace tab ORAL SCH (08:41)
[2016-12-06] MEDS: Enoxaparin 40mg Inj SUBQ SCH (08:42)
[2016-12-06] MEDS: Pantoprazole Inj IVP SCH (08:42)
[2016-12-06] MEDS ORDERED: Tubing IV Secondary IV ONE (09:36)
--- NOTE | 2016-12-06 09:47 | GI Progress Note ---
Assessment/Plan Problems: (1) Encounter for PEG (percutaneous endoscopic gastrostomy) ICD Codes: Z43.1 - Encounter for attention to gastrostomy SNOMED: 978499649, 304598667 (2) Dysphagia ICD Codes: R13.10 - Dysphagia, unspecified SNOMED: 85638212, 995163557 (3) Diabetes ICD Codes: E11.9 - Type 2 diabetes mellitus without complications SNOMED: 11979748 (4) Abdominal distention ICD Codes: R14.0 - Abdominal distension (gaseous) SNOMED: 37581924 (5) Sepsis ICD Codes: A41.9 - Sepsis, unspecified organism SNOMED: 84717925 Qualifiers: Qualified Codes: A41.9 - Sepsis, unspecified organism Status: unchanged Status Narrative Discussed with Dr. Pollock. Assessment/Plan comfort care PEG cancelled >> pt has POLST >> no artificial tube feedings >> spoke to sister today to confirm, she does not want PEG. ST eval reviewed >> LIQUIFIED PUREED LIKE NECTAR THICK LIQUIDS. adv diet per ST/Dietary no amlabs Subjective Subjective limited Objective Last 24 Hour Vital Signs Date Time Temp Pulse Resp B/P Pulse Ox O2 Delivery O2 Flow Rate FiO2 12/06/16 08:34 Room Air 12/06/16 08:34 95 Room Air 12/06/16 08:34 87 18 Room Air 12/06/16 08:00 97.2 90 19 143/78 94 Room Air 12/06/16 04:00 99.1 68 20 154/85 96 Room Air 12/06/16 00:00 98.6 98 18 157/87 93 Room Air 12/05/16 19:57 98.1 87 18 157/80 95 Room Air 12/05/16 19:54 Room Air 12/05/16 19:53 95 Room Air 12/05/16 19:52 88 18 Room Air 12/05/16 16:00 98.4 65 19 154/77 95 Room Air 12/05/16 12:00 97.2 88 19 149/86 93 Room Air Intake and Output 12/05/16 12/06/16 19:00 07:00 Intake Total 825 ml 825 ml Output Total 150 ml 750 ml Balance 675 ml 75 ml IV Total 825 ml 825 ml Output Urine Total 450 ml Stool Total 150 ml 300 ml Height (Feet): 5 Height (Inches): 11.00 Weight (Pounds): 195 General Appearance: no apparent distress Cardiovascular: normal rate Respiratory/Chest: normal breath sounds, no respiratory distress Abdominal Exam: normal bowel sounds, non tender, soft Sujey Kan N.P. Dec 06, 2016 09:47
[2016-12-06 12:14] VITALS: BP 138/82
--- NOTE | 2016-12-06 12:30 | Infectious Diseases Prog Note ---
Assessment/Plan Assessment/Plan A: ASSESSMENT: The patient is a 70-year-old male with Sepsis, improving Fever, improving Leukocytosis, SP Ischemic colitis SP sigmoidectomy and colostomy SP self extubation 11/30 GRETEL improving Seizure disorder Atrial fibrillation Anemia Hypertension Asthma BPH Diabetes Anemia PLAN: monitor pt off of AB Rx SP on IV ertapenem d# 7 Monitor CBC. Monitor BMP. will follow GenSx recs Subjective Constitutional: Denies: anorexia, chills, drenching sweats, fatigue, fever, no symptoms, other Allergies: Coded Allergies: PENICILLINS (Verified Allergy, Unknown, 03/08/15) Subjective self extubated today Objective Vital Signs Last 24 Hour Vital Signs Date Time Temp Pulse Resp B/P Pulse Ox O2 Delivery O2 Flow Rate FiO2 12/06/16 12:14 97.3 96 18 138/82 94 Room Air 12/06/16 08:34 Room Air 12/06/16 08:34 95 Room Air 21 12/06/16 08:34 87 18 Room Air 12/06/16 08:00 97.2 90 19 143/78 94 Room Air 12/06/16 04:00 99.1 68 20 154/85 96 Room Air 12/06/16 00:00 98.6 98 18 157/87 93 Room Air 12/05/16 19:57 98.1 87 18 157/80 95 Room Air 12/05/16 19:54 Room Air 12/05/16 19:53 95 Room Air 12/05/16 19:52 88 18 Room Air 21 12/05/16 16:00 98.4 65 19 154/77 95 Room Air Height (Feet): 5 Height (Inches): 11.00 Weight (Pounds): 195 HEENT: anicteric Respiratory/Chest: respiratory distress Cardiovascular: no gallop/murmur Abdomen: no organomegaly Current Medications Medications (Trade) Dose Ordered Sig/Ady Route PRN Reason Start Time Stop Time Status Last Admin Dose Admin Acetaminophen (Tylenol) 650 mg Q4H PRN ORAL fever 12/04/16 14:00 01/03/17 13:59 Acetaminophen (Tylenol) 650 mg Q4H PRN RECTAL Mild Pain/Fever 12/04/16 14:00 01/03/17 13:59 Albuterol/ Ipratropium (DuoNeb 0.5-3(2.5)mg/3ml) 3 ml Q4H PRN HHN Shortness of Breath 12/04/16 14:00 12/09/16 13:59 Dextrose (D5W 1000ml) 1,000 ml @ 75 mls/hr [id number] IV 12/04/16 14:00 01/03/17 13:59 12/06/16 00:56 Enoxaparin Sodium (Lovenox) 40 mg DAILY SUBQ 12/05/16 09:00 01/04/17 08:59 12/06/16 08:42 Hydromorphone HCl (Dilaudid) 1 mg Q4H PRN IVP PAIN 1-6 12/04/16 14:00 12/11/16 13:59 Hydromorphone HCl (Dilaudid) 2 mg Q4H PRN IVP Severe Pain (Pain Scale 7-10) 12/04/16 14:00 12/11/16 13:59 Lorazepam (Ativan 2mg/ml 1ml) 2 mg Q2H PRN IV For Anxiety 12/04/16 14:00 12/11/16 13:59 Metoclopramide HCl (Reglan) 10 mg EVERY 8 HOURS IVP 12/04/16 14:00 01/03/17 13:59 12/06/16 06:23 Ondansetron HCl (Zofran) 4 mg Q6H PRN IVP Nausea & Vomiting 12/04/16 17:00 01/03/17 16:59 Pantoprazole (Protonix) 40 mg DAILY IVP 12/05/16 09:00 01/04/17 08:59 12/06/16 08:42 Polyethylene Glycol (Miralax) 17 gm DAILYPRN PRN ORAL Constipation 12/04/16 17:00 01/03/17 16:59 Senna/Docusate Sodium (Kristen-Colace) 1 ea TWICE A DAY ORAL 12/04/16 18:00 01/03/17 17:59 12/06/16 08:41 MADISON FLYNN M.D. Dec 06, 2016 12:29
--- NOTE | 2016-12-06 12:44 | General Surgery Progress Note ---
General Surgery-Progress Note Subjective Symptoms: improved, BM Objective Last 24 Hour Vital Signs Date Time Temp Pulse Resp B/P Pulse Ox O2 Delivery O2 Flow Rate FiO2 12/06/16 12:14 97.3 96 18 138/82 94 Room Air 12/06/16 08:34 Room Air 12/06/16 08:34 95 Room Air 12/06/16 08:34 87 18 Room Air 12/06/16 08:00 97.2 90 19 143/78 94 Room Air 12/06/16 04:00 99.1 68 20 154/85 96 Room Air 12/06/16 00:00 98.6 98 18 157/87 93 Room Air 12/05/16 19:57 98.1 87 18 157/80 95 Room Air 12/05/16 19:54 Room Air 12/05/16 19:53 95 Room Air 12/05/16 19:52 88 18 Room Air 12/05/16 16:00 98.4 65 19 154/77 95 Room Air I&O Intake and Output 12/05/16 12/06/16 19:00 07:00 Intake Total 825 ml 825 ml Output Total 150 ml 750 ml Balance 675 ml 75 ml IV Total 825 ml 825 ml Output Urine Total 450 ml Stool Total 150 ml 300 ml Wound: clean, intact Drains: none Respiratory: clear Abdomen: soft, flat, non-tender, present bowel sounds Extremities: no tenderness Assessment Post-op Diagnosis Ischemia of sigmoid colon Plan Additional Comments Per PCP WILMA BANUELOS Dec 06, 2016 12:44
[2016-12-06] MEDS ORDERED: MORPHINE S10 MG/5 ML ORAL (14:38)
--- NOTE | 2016-12-06 15:27 | Pulmonology Progress Note ---
Assessment/Plan Problems: (1) sigmoidectomy (2) Respiratory failure (3) Sepsis (4) Cardiomyopathy (5) Status post exploratory laparotomy (6) COPD (chronic obstructive pulmonary disease) Assessment/Plan no new ocmplains will need Gtube or comfort care d/w Dr. Harding, from [facility] [place], who agrees with Hospice. met with family members who agreed with comfort care Subjective ROS Limited/Unobtainable: Yes Interval Events: comfortable Allergies: Coded Allergies: PENICILLINS (Verified Allergy, Unknown, 03/08/15) Objective Last 24 Hour Vital Signs Date Time Temp Pulse Resp B/P Pulse Ox O2 Delivery O2 Flow Rate FiO2 12/06/16 12:14 97.3 96 18 138/82 94 Room Air 12/06/16 08:34 Room Air 12/06/16 08:34 95 Room Air 21 12/06/16 08:34 87 18 Room Air 21 12/06/16 08:00 97.2 90 19 143/78 94 Room Air 12/06/16 04:00 99.1 68 20 154/85 96 Room Air 12/06/16 00:00 98.6 98 18 157/87 93 Room Air 12/05/16 19:57 98.1 87 18 157/80 95 Room Air 12/05/16 19:54 Room Air 12/05/16 19:53 95 Room Air 21 12/05/16 19:52 88 18 Room Air 21 12/05/16 16:00 98.4 65 19 154/77 95 Room Air Intake and Output 12/05/16 12/06/16 19:00 07:00 Intake Total 825 ml 825 ml Output Total 150 ml 750 ml Balance 675 ml 75 ml IV Total 825 ml 825 ml Output Urine Total 450 ml Stool Total 150 ml 300 ml General Appearance: WD/WN HEENT: normocephalic, atraumatic Respiratory/Chest: chest wall non-tender, lungs clear Cardiovascular: normal peripheral pulses, normal rate Abdomen: normal bowel sounds, soft, non tender Genitourinary: normal external genitalia Skin: no rash 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 Current Medications Medications (Trade) Dose Ordered Sig/Ady Route PRN Reason Start Time Stop Time Status Last Admin Dose Admin Acetaminophen (Tylenol) 650 mg Q4H PRN ORAL fever 12/04/16 14:00 01/03/17 13:59 Acetaminophen (Tylenol) 650 mg Q4H PRN RECTAL Mild Pain/Fever 12/04/16 14:00 01/03/17 13:59 Albuterol/ Ipratropium (DuoNeb 0.5-3(2.5)mg/3ml) 3 ml Q4H PRN HHN Shortness of Breath 12/04/16 14:00 12/09/16 13:59 Dextrose (D5W 1000ml) 1,000 ml @ 75 mls/hr [id number] IV 12/04/16 14:00 01/03/17 13:59 12/06/16 00:56 Enoxaparin Sodium (Lovenox) 40 mg DAILY SUBQ 12/05/16 09:00 01/04/17 08:59 12/06/16 08:42 Hydromorphone HCl (Dilaudid) 1 mg Q4H PRN IVP PAIN 1-6 12/04/16 14:00 12/11/16 13:59 Hydromorphone HCl (Dilaudid) 2 mg Q4H PRN IVP Severe Pain (Pain Scale 7-10) 12/04/16 14:00 12/11/16 13:59 Lorazepam (Ativan 2mg/ml 1ml) 2 mg Q2H PRN IV For Anxiety 12/04/16 14:00 12/11/16 13:59 Metoclopramide HCl (Reglan) 10 mg EVERY 8 HOURS IVP 12/04/16 14:00 01/03/17 13:59 12/06/16 14:22 Ondansetron HCl (Zofran) 4 mg Q6H PRN IVP Nausea & Vomiting 12/04/16 17:00 01/03/17 16:59 Pantoprazole (Protonix) 40 mg DAILY IVP 12/05/16 09:00 01/04/17 08:59 12/06/16 08:42 Polyethylene Glycol (Miralax) 17 gm DAILYPRN PRN ORAL Constipation 12/04/16 17:00 01/03/17 16:59 Senna/Docusate Sodium (Kristen-Colace) 1 ea TWICE A DAY ORAL 12/04/16 18:00 01/03/17 17:59 12/06/16 08:41 BUCKY WOLF Dec 06, 2016 15:27
[2016-12-06 16:06] VITALS: BP 151/73
--- NOTE | 2016-12-08 12:11 | Discharge Summary ---
Discharge Summary Hospital Course Date of Admission Nov 27, 2016 at 19:13 Date of Discharge Dec 06, 2016 at 17:18 Admitting Diagnosis SEPSIS HPI Paul Cormier is a 70 year old male who was admitted on Nov 27, 2016 at 19:13 for Sepsis Hospital Course [id number] Discharge Discharge Disposition Patient was discharged to SNF/Subacute Facility under hospice Discharge Diagnoses: Elicia Morocho NP Dec 08, 2016 12:11
--- NOTE | 2016-12-09 04:45 | Discharge Summary 2 SIG ---
DATE OF ADMISSION: 11/27/2016 DATE OF DISCHARGE: 12/06/2016 CONSULTANTS: 1. Gracie Avelar M.D. 2. Ivan Ballard M.D. 3. Reno Meza M.D. 4. Trey Pollock M.D. BRIEF HOSPITAL COURSE: The patient is a 70-year-old male, who was brought in by EMS from SNF for evaluation of abdominal distention and high WBC. The patient was aphasic and no family member was at bedside. On evaluation at ED, temperature was 102.9 degrees. Laboratories showed leukocytosis. Abdomen was distended and NG tube was placed and there was large amount of gastric contents removed. Urinalysis was grossly infected with evidence of acute kidney injury. CT of the abdomen and pelvis done showed distended small bowel without signs of obstruction. Due to patient's presentation with distended and severely tender abdomen with rebound tenderness and guarding and absent bowel sounds, the patient required emergency laparotomy. The patient underwent exploratory laparotomy with resection of the sigmoid colon and end colostomy. Intraoperatively, there were patches of ischemia in the distal sigmoid colon and proximal rectum. It was not perforated and there was no gangrene, but there was apparent necrosis of the mucosa represented by patches of dark color from inside of the abdomen. Ischemic area was ligated and transected. Postoperatively, the patient was transferred to ICU and was kept intubated. He was given slow IV hydration and was continued on ertapenem. On 11/30/2016, he self extubated. Following day, abdomen had normal bowel sounds and was started on clear liquids. He underwent swallow evaluation. However, the patient unable to fully eat. GI consultation was done for possible PEG tube placement. Procedure was scheduled, however, was later on canceled. Social service was able to get in touch with [facility], who showed a POLST stating the patient does not want any artificial means of nutrition. Family meeting was called and per family wishes, the patient be placed on comfort care. He was eventually discharged to SNF under hospice. FINAL DIAGNOSES: 1. Sepsis. 2. Acute ischemic colitis status post exploratory laparotomy with resection of the sigmoid colon and end colostomy. 3. Acute respiratory failure. 4. Cardiomyopathy. 5. Chronic obstructive pulmonary disease. 6. Dysphagia. 7. Acute kidney injury with possible underlying chronic kidney disease. 8. Ischemic colitis. 9. Atrial fibrillation. 10. Seizure disorder. 11. Anemia. 12. Benign prostatic hypertrophy. 13. Hypertension. 14. Diabetes. 15. Hospice/comfort care. Brian Vance M.D. I have been assigned to dictate discharge summary on this account and I was not involved in the patient's management. Elicia Morocho N.P. DR: JOSE JOB#: [id number] CC: DORA
--- NOTE | 2016-12-09 17:25 | Diagnostic Imaging Report ---
Indications: DYSPHAGIA Technique: Patient ingested multiple substances under the supervision of speech pathology. Video fluoroscopic recording performed. Total fluoroscopy time 225 seconds. Total dose area product [id number] mGycm2 Comparison: none Findings: There is delay in initiating deglutition. There is some early pooling in the vallecula. There is distention of the proximal esophagus. There is supraglottic laryngeal penetration. No evidence of aspiration demonstrated. There is delayed clearing of contrast. Impression: Equivocal supraglottic laryngeal penetration Marked oromotor dysfunction, as described No definite aspiration
== END 2016-12-06 17:18 | DRG 853 ==
LOC: EDBD 08:30 → EDBEDREQ 08:42 → EMR 08:51 → EDBEDREQ 10:04 → SUR 12:46 → EDBEDREQ 19:04 → EDBEDREQSVC 19:05 → ICU 19:13 → 2W 12-01 22:04 → 4W 12-04 13:21
DX: A41.9 Sepsis, unspecified organism (principal); J96.90 Respiratory failure, unspecified, unspecified whether with hypoxia or hypercapnia; R65.21 Severe sepsis with septic shock; K55.039 Acute (reversible) ischemia of large intestine, extent unspecified; N17.9 Acute kidney failure, unspecified; I42.9 Cardiomyopathy, unspecified; Z51.5 Encounter for palliative care; I48.91 Unspecified atrial fibrillation; F03.90 Unspecified dementia, unspecified severity, without behavioral disturbance, psychotic disturbance, mood disturbance, and anxiety; G40.909 Epilepsy, unspecified, not intractable, without status epilepticus; R62.7 Adult failure to thrive; I12.9 Hypertensive chronic kidney disease with stage 1 through stage 4 chronic kidney disease, or unspecified chronic kidney disease; J44.9 Chronic obstructive pulmonary disease, unspecified; Z88.0 Allergy status to penicillin; Z86.73 Personal history of transient ischemic attack (TIA), and cerebral infarction without residual deficits; N40.0 Benign prostatic hyperplasia without lower urinary tract symptoms; E11.9 Type 2 diabetes mellitus without complications; R13.10 Dysphagia, unspecified; N18.9 Chronic kidney disease, unspecified
CPT/HCPCS: 36415; 36600; 71010; 74000; 74176; 74230; 80048; 80053; 80061; 81003; 82248; 82550; 82803; 82977; 83036; 83605; 83690; 83735; 83880; 84100; 84300; 84484; 84550; 85025; 85610; 85730; 86140; 86850; 86900; 86901; 87040; 87070; 87075; 87081; 87086; 87205; 89050; 93005; 93306; 93970; 94002; 94003; 94150; 94664; 94760; C9399; J2250; J2370; J2765; S0077

== ENCOUNTER 2019-09-22 02:32 | Inpatient (IN) | payer OTHER ==
[2019-09-22] VITALS (11 sets, daily range): BP systolic 91–131; BP diastolic 45–95
[~2019-09-22] VITALS: Ht 188 cm; Wt 66.2 kg
[~2019-09-22 02:32] MED LIST changes: +ALBUTEROL2.5 MG/3 M INH; +ARTIFICIAL TEAR15 ML BOTH EYES; +CATAPRES0.1 MG ORAL; -Clindamycin 900mg 50 ML IVPB ONE; +GUAIFENESIN-CO118 M1 ORAL; +LOPERAMIDE1 MG/5 ML ORAL; +MORPHINE S10 MG/5 ML ORAL; +NITROGLYCERIN0.4 MG SL; +OYSTER SHELL C500 MG PO; +PROSOURCE275 GM PO; -Vancomycin 1.5 GM in D5W 325 ML IVPB STA
--- NOTE | 2019-09-22 02:32 | NUR ---
ED Nurse Note: Patient waiting in ambulance bay d/t no isolation bed available.
--- NOTE | 2019-09-22 03:07 | Emergency Room Report ---
History of Present Illness General Chief Complaint: Generalized Weakness Source: Medical Record, EMS Present Illness HPI Disclaimer: Please note that this report is being documented using DRAGON technology. This can lead to erroneous entry secondary to incorrect interpretation by the dictating instrument. HPI: 73-year-old male presents from SNF for evaluation of renal failure and lethargy. History of CVA, ischemic bowel, respiratory failure, paroxysmal atrial fibrillation. Patient cannot provide any history at this time. Per EMS , he was sent over for decreasing mental status and for renal failure. Documentation shows poor oral intake over the past few days. He is DNR/DNI comfort measures only. No artificial nutrition noted on the patient's POLST form. Recently diagnosed with COVID-19. Vital signs were stable en route. PMH: Paroxysmal atrial fibrillation, CVA, ischemic bowel, respiratory failure PSH: Bowel resection Allergies: Penicillin noted in medical chart Social Hx: Unable to obtain from patient Allergies: Coded Allergies: PENICILLINS (Verified Allergy, Unknown, 03/08/15) COVID-19 Screening Contact w/high risk pt: Yes Recent Travel to affected area: No Experienced COVID-19 symptoms?: Yes COVID-19 symptoms experienced: Flu-Like Symptoms Nursing Documentation-PMH Hx Cardiac Problems: Yes - A FIB Hx Hypertension: Yes Hx Pacemaker: No - ANEMIA Hx Diabetes: Yes Hx Cancer: No - MRSA Hx Gastrointestinal Problems: Yes Hx Neurological Problems: Yes Hx Cerebrovascular Accident: Yes Hx Seizures: Yes Review of Systems All Other Systems: negative except mentioned in HPI Physical Exam Vital Signs Date Time Temp Pulse Resp B/P (MAP) Pulse Ox O2 Delivery O2 Flow Rate FiO2 09/22/19 02:31 98.4 115 22 124/80 (95) 98 Room Air General: Awake, nonverbal, cachectic and frail-appearing male HEENT: NC/AT. EOMI. Cardiovascular: Tachycardic Resp: Tachypnea. No hypoxia. Normal work of breathing. No cough MSK: Normal tone and bulk. No obvious deformity. Tremulous Neuro: Awake, not responding verbally. Medical Decision Making ER Course 73-year-old male presents for evaluation of altered mental status and reported renal failure. Patient was nursing home facility and has recently tested positive for COVID-19. He is DNR/DNI and comfort measures only. Creatinine noted to be 7.1, acutely elevated from last labs on 12/11 where creatinine was within normal limits. Likely due to poor intake however will confirm these values by redrawing labs. Patient arrives with an IV line. Will discuss goals of care with his PMD given the restrictive nature of his POLST form. Will start IV fluids and put on nasal cannula for comfort as per advanced directives Last Vital Signs Date Time Temp Pulse Resp B/P (MAP) Pulse Ox O2 Delivery O2 Flow Rate FiO2 09/22/19 02:31 98.4 115 22 124/80 (95) 98 Room Air Referrals: Navneet Light MD (PCP) Samuel Kline MD Sep 22, 2019 03:07
--- NOTE | 2019-09-22 03:30 | NUR ---
ED Nurse Note: Patient transferred to bed 8, placed on machine set up technician.
--- NOTE | 2019-09-22 03:30 | NUR ---
ED Nurse Note: Patient brought in by ambulance from [facility] d/t lethargy and poor intake. Patient nonverbal and only responds to name or painful stimuli. Patient placed on gas manager. Patient has right forearm IV 24g inserted prior to arrival. Patient is DNR per [facility] packet. No acute distress noted upon assessment. Per facility packet, patient is COVID positive.
[2019-09-22 04:43] LABS: BASOPHILS % (AUTO) 0.2 % (0.0-2.0); HEMATOCRIT 44.6 % (42.0-52.0); HEMOGLOBIN 14.2 G/DL (14.2-18.0); LYMPHOCYTES % (AUTO) 12.6 % (20.0-45.0); MEAN CORPUSCULAR VOLUME 88 FL (80-99); MONOCYTES % (AUTO) 4.9 % (1.0-10.0); NEUTROPHILS % (AUTO) 82.3 % (45.0-75.0); PLATELET COUNT 230 K/UL (150-450); RED BLOOD COUNT 5.04 M/UL (4.70-6.10); RED CELL DISTRIBUTION WIDTH 13.6 % (11.6-14.8); WHITE BLOOD COUNT 11.5 K/UL (4.8-10.8)
[2019-09-22 04:54] LABS: ALANINE AMINOTRANSFERASE 52 U/L (12-78); ALBUMIN/GLOBULIN RATIO 0.5 (1.0-2.7); ALKALINE PHOSPHATASE 104 U/L (46-116); ANION GAP 20 mmol/L (5-15); ASPARTATE AMINO TRANSFERASE 130 U/L (15-37); BILIRUBIN,TOTAL 0.8 MG/DL (0.2-1.0); BLOOD UREA NITROGEN 117 mg/dL (7-18); CALCIUM 9.6 MG/DL (8.5-10.1); CARBON DIOXIDE 25 MMOL/L (21-32); CHLORIDE 117 MMOL/L (98-107); CREATININE 8.9 MG/DL (0.55-1.30); POTASSIUM 4.3 MMOL/L (3.5-5.1)
[2019-09-22 04:58] LABS: SODIUM 161 MMOL/L (136-145)
--- NOTE | 2019-09-22 07:12 | NUR ---
HAND-OFF: Report given to JOSE Howe.
--- NOTE | 2019-09-22 07:50 | NUR ---
ED Nurse Note: Noted pt to be tachycardic HR 153. Dr Noonan notified.
--- NOTE | 2019-09-22 09:01 | NUR ---
ED Nurse Note: Called Radiology to follow up imaging CXR.
--- NOTE | 2019-09-22 09:14 | NUR ---
ED Nurse Note: wood technologist at the bed side for CXR.
--- NOTE | 2019-09-22 09:45 | Diagnostic Imaging Report ---
EXAM: XR Chest, 1 View CLINICAL HISTORY: COUGH TECHNIQUE: Frontal view of the chest. COMPARISON: 12/02/16 FINDINGS: Lungs: Unremarkable. No consolidation. Pleural space: Unremarkable. No pneumothorax. Heart: Unremarkable. No cardiomegaly. Mediastinum: Unremarkable. Bones/joints: Unremarkable. Vasculature: There is a stent identified in the aortic arch and proximal descending thoracic aorta. IMPRESSION: No acute findings in the chest.
--- NOTE | 2019-09-22 10:56 | NUR ---
HAND-OFF: Report given to Kat GARCIA.
--- NOTE | 2019-09-22 10:57 | NUR ---
ED Nurse Note: report received from Carley Cho
--- NOTE | 2019-09-22 11:09 | NUR ---
ED Nurse Note: Admission order is placed by Dr yeung who is covering for dr farmer.
[2019-09-22] MEDS ORDERED: Nitroglycerin Subl 0.4mg tab SL PRN (11:15)
[2019-09-22] MEDS ORDERED: Promethazine/Codeine 5ml UD ORAL PRN (11:15)
--- NOTE | 2019-09-22 11:47 | NUR ---
HAND-OFF: Report given to wero GARCIA.
[2019-09-22] MEDS: D5 1/2NS 1,000 ML IV SCH ×3 (11:57→21:15)
--- NOTE | 2019-09-22 12:21 | NUR ---
ED Nurse Note: Received report from JOSE Howe. Pt on bed, awake and alert, satting at 98% on 2LPM via NC. Pt is AOx1-2 noted with generalized weakness; appears tachycardic with 135BPM. Skin intact. Noted IV site on RT forearm 24G, intact patent; hydration infusing well. Maintained on droplet isolation precautions. Safety measures in placed. Will continue to monitor pt.
--- NOTE | 2019-09-22 15:30 | NUR ---
ED Nurse Note: Pt satting at 88-85% on 4LPM via NC, notified charge nurse.
--- NOTE | 2019-09-22 15:35 | NUR ---
ED Nurse Note: Pt now satting at 97% on 2LPM via NC.
--- NOTE | 2019-09-22 16:30 | NUR ---
ED Nurse Note: Collected bloodwork and urine for routine admit orders; verified with lab.
[2019-09-22 16:54] LABS: APPEARANCE,URINE CLOUDY; BILIRUBIN, URINE 1+ (NEGATIVE); GLUCOSE, URINE (UA) NEGATIVE (NEGATIVE); KETONES,URINE 1+ (NEGATIVE); LEUKOCYTE ESTERASE ,URINE 3+ (NEGATIVE); NITRITE,URINE NEGATIVE (NEGATIVE); PH,URINE 5 (4.5-8.0); PROTEIN,URINE 3+ (NEGATIVE); UROBILINOGEN,URINE 1 MG/DL (0.0-1.0)
[2019-09-22 16:56] LABS: COLOR,URINE YELLOW
[2019-09-22 17:13] LABS: CREATINE KINASE 642 U/L (26-308)
--- NOTE | 2019-09-22 18:37 | NUR ---
ED Nurse Note: Noted Pt's HR at 160, notified charge nurse and Dr. Vance.
--- NOTE | 2019-09-22 19:19 | NUR ---
ED Nurse Note: Report received from Abiola Rhodes RN. pt is bed resting with eyes closed. Will continue to monitor.
--- NOTE | 2019-09-22 19:50 | NUR ---
ED Nurse Note: Report given to Tucker from [facility].
--- NOTE | 2019-09-22 20:03 | NUR ---
ED Nurse Note: pt was brought up to room 409 accompanied by production maintenance technician via styker bed in stable conditione. Report given to JOSE Ceballos . Pt has no belongings.
--- NOTE | 2019-09-22 20:45 | NUR ---
NURSE NOTES: Patient transferred from E.R. to room 409-2. Unable to make needs known. Respiration is tachypneic 26. Nasal cannula noted. Iv site noted, iv fluid is infusing as ordered. Skin is warm and dry, noted with right buttock 0.8 x 0.5 cm stage 2. Noted with left quadrant colostomy. Andrade noted, draining. Bed in low and locked position. Provided safe environment. Kept clean and comfortable. Call light is at bedside. No belongings noted. Code status noted. Orders noted.
[2019-09-22] MEDS ORDERED: Heparin 5000 units/ml inj SUBQ SCH (21:00)
[2019-09-22] MEDS ORDERED: Acetaminophen 650 MG SUPP RECTAL PRN (21:15)
--- NOTE | 2019-09-23 01:04 | NUR ---
NURSE NOTES: Patient in bed, noted no respiration , no pulse. no blood pressure. Informed Charge nurse and fence erector supervisor.
--- NOTE | 2019-09-23 01:15 | NUR ---
NURSE NOTES: Dr. Vance was informed patient is .
--- NOTE | 2019-09-23 01:38 | NUR ---
NURSE NOTES: [facility] was called, noted and carried out.
--- NOTE | 2019-09-23 01:40 | NUR ---
NURSE NOTES: Dr. Light was informed patient is .
--- NOTE | 2019-09-23 02:20 | NUR ---
PRONOUNCEMENT: No Code. Called to pronounce patient. Absence of spontaneous respirations, no cardiac or breath sounds on auscultation. Pupils fixed and dilated. No carotid pulse or chest movement. Patient at 0104. DR WOLF notified PER JOSE BAILON AT 0115 AND AT 0140. Family was notified at 0115 RACHEL DOLL-SISTER.
--- NOTE | 2019-09-24 13:39 | Discharge Summary ---
Discharge Summary Discharge Summary _ SUMMARY DATE OF ADMISSION: 09/22/2019 DATE OF EXPIRATION : 09/23/2019 REASON FOR ADMISSION: 73 years old male, resident of correction facility, with DNR/DNI status, with past medical history of hypertension, atrial fibrillation, diabetes mellitus, CVA, seizure disorder, anemia, presented for evaluation due to altered mental status and poor oral intake. Patient was recently tested positive for COVID-19. Upon evaluation patient was tachycardic and tachypneic . Pulse oximetry was stable initially on room air. Laboratory work-up revealed leukocytosis . BUN 117, creatinine 8.9. Sodium 161. Glucose 164. AST 130. ALT 52. Albumin 3.0. Total CK 642. Urinalysis revealed evidence of urinary tract infection. Chest x-ray demonstrated no acute cardiopulmonary pathology. Patient with DNR /DNI status and comfort measures only. Patient started on the IV fluids, placed on oxygen via nasal cannula and admitted to medical surgical floor for further management. HOSPITAL COURSE: Patient admitted to medical surgical floor. Comfort care provided . Patient was continued on gentle IV hydration and oxygen via nasal cannula. DVT prophylaxis initiated. At the time of this dictation urine culture back with results of Klebsiella pneumonia ESBL. Patient remained tachycardic, tachypneic. Patient condition was rapidly deteriorating. Patient was pronounced at 01:16 09/22. Cause of : cardiopulmonary arrest secondary to COVID 19 infection FINAL DIAGNOSES: Confirmed COVID-19 infection Sepsis Acute renal failure, probably due to dehydration Altered mental status, likely due to toxic metabolic encephalopathy secondary to dehydration and infection UTI with Klebsiella pneumonia ESBL Hypernatremia Comfort care I have been assigned to dictate discharge summary for this account. I was not involved in the patient's management. Magda Cooper NP Sep 24, 2019 13:39
== END 2019-09-23 01:04 | disposition expired | DRG 871 ==
LOC: EDBD 02:32 → EMR 02:58 → EDBEDREQ 04:33 → 4E 05:23 → EDBEDREQ 18:44
DX: A41.89 Other specified sepsis (principal); U07.1 COVID-19; G92 Toxic encephalopathy; N17.9 Acute kidney failure, unspecified; N39.0 Urinary tract infection, site not specified; Z16.12 Extended spectrum beta lactamase (ESBL) resistance; E87.0 Hyperosmolality and hypernatremia; Z51.5 Encounter for palliative care; Z66 Do not resuscitate; Z88.0 Allergy status to penicillin; I10 Essential (primary) hypertension; I48.0 Paroxysmal atrial fibrillation; B96.1 Klebsiella pneumoniae [K. pneumoniae] as the cause of diseases classified elsewhere; E11.9 Type 2 diabetes mellitus without complications; E86.0 Dehydration; Z86.73 Personal history of transient ischemic attack (TIA), and cerebral infarction without residual deficits; G40.909 Epilepsy, unspecified, not intractable, without status epilepticus
CPT/HCPCS: 36415; 71045; 80053; 81001; 82043; 82550; 83935; 84300; 84550; 85025; 87081; 87086; 87181; 89050; 96360; 96361; 99285